=== PATIENT | male | born 1945 | race Two or more races ===

== ENCOUNTER 2016-10-17 13:40 | Observation (INO) | payer MEDICARE, OTHER ==
[~2016-10-17] VITALS: Ht 172.7 cm; Wt 83.0 kg
[~2016-10-17 13:40] MED LIST: ALPR0.25 PO; BUDE10.2 IH; CHOL20003 PO; COLE1TAB PO; DIPH1TAB5 PO; ESCI10TA PO; ESCI5TAB24 PO; FLUT9.9S NS; GABA-585 PO; HYDR30CR TP; HYDR4TAB PO; IPRA3AMP NEB; LEVO500T38 PO; LIDO700A4 TD; Loperamide Hcl PO; MAGN400T22 PO; METH5TAB2 PO; METO50TA2 PO; MONT10TA6 PO; MULT-246 PO; Metoprolol Tartrate PO; OXYC5TAB PO; PRED-220 PO; PROC5TAB14 PO; RIFA550T PO; ROPI0.25 PO; ROPI0.5T PO; TACR0.5C4 PO; TACR1CAP4 PO; TAMS0.4C97 PO; TRAZ50TA15 PO; Tizanidine Hcl PO; Trazodone Hcl PO
[2016-10-17] MEDS ORDERED: HYDR2TAB PO (13:47)
[2016-10-17] MEDS ORDERED: LORA0.5T PO (13:49)
[2016-10-17] MEDS ORDERED: ASCO10002 PO (13:50)
[2016-10-17] MEDS ORDERED: LEVO25TA4 PO (13:51)
--- NOTE | 2016-10-17 14:09 | PHYS DOC ---
Past Medical History Past Medical History: Anxiety, Cancer, GERD, High Cholesterol, Hypotension, Hepatitis, Other Additional Past Medical Histor: chronic back pain; colon ca-CHEMO & RADIATION; former hep C,PANIC ATTACKS Past Surgical History: Other Additional Past Surgical Histo: liver transplant,PORT-A-CATH Alcohol Use: None Drug Use: None Adult General Chief Complaint Chief Complaint: MULTIPLE COMPLAINTS HPI HPI Patient is a 71 year old male who presents with jitteriness and abusing pain meds. He states he's on morphine and Dilaudid and over the last 3 days he's been crushing up his Dilaudid and injecting it himself. 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 He denies any fevers chills nausea or vomiting. He thinks he needs more pain meds and is concerned about his practice of injecting himself. He presents with his 2 daughters and they're interested in him going to rehabilitation. Review of Systems Review of Systems Constitutional: Denies fever or chills [] Eyes: Denies change in visual acuity, redness, or eye pain [] HENT: Denies nasal congestion or sore throat [] Respiratory: Denies cough or shortness of breath [] Cardiovascular: No additional information not addressed in HPI [] GI: Denies abdominal pain, nausea, vomiting, bloody stools or diarrhea [] : Denies dysuria or hematuria [] Musculoskeletal: Denies back pain or joint pain [] Integument: Denies rash or skin lesions [] Neurologic: Denies headache, focal weakness or sensory changes [] Endocrine: Denies polyuria or polydipsia [] Allergies Allergies Allergies Coded Allergies Type Severity Reaction Last Updated Verified Iodinated Contrast Media - IV Dye Allergy Intermediate 04/20/16 Yes testosterone Allergy Intermediate 04/20/16 Yes I S O L A T I O N *CONTACT* Allergy Unknown 04/20/16 Yes Physical Exam Physical Exam Constitutional: Well developed, well nourished, no acute distress, non-toxic appearance. [] HENT: Normocephalic, atraumatic, bilateral external ears normal, oropharynx moist, no oral exudates, nose normal. [] Eyes: PERRLA, EOMI, conjunctiva normal, no discharge. [] Neck: Normal range of motion, no tenderness, supple, no stridor. [] Cardiovascular:Heart rate regular rhythm, no murmur [] Lungs & Thorax: Bilateral breath sounds clear to auscultation [] Abdomen: Bowel sounds normal, soft, no tenderness, no masses, no pulsatile masses. [] Skin: Warm, dry, no erythema, no rash. Ecchymosis on bilateral arms were he has been injecting Back: No tenderness, no CVA tenderness. [] Extremities: No tenderness, no cyanosis, no clubbing, ROM intact, no edema. [] Neurologic: Alert and oriented X 3, normal motor function, normal sensory function, no focal deficits noted. [] Psychologic: Affect normal, judgement normal, mood normal. [] Current Patient Data Vital Signs Vital Signs Date Time Temp Pulse Resp B/P Pulse Ox O2 Delivery O2 Flow Rate FiO2 10/17/16 13:45 98.9 77 18 117/63 96 Room Air 98.9 EKG EKG [] Radiology/Procedures Radiology/Procedures [] Course & Med Decision Making Course & Med Decision Making Pertinent Labs and Imaging studies reviewed. (See chart for details) She comes in feeling jittery and been abusing his Dilaudid eye crushing them up injecting them. I ordered basic labs and 0.5 mg Ativan 1 the patient's being checked out to Dr. Silvana Cadena Disclaimer Surinder Disclaimer This electronic medical record was generated, in whole or in part, using a voice recognition dictation system. Departure Departure Referrals: ELENI NIEVES MD (PCP) ELISABETH CUMMINGS MD Oct 17, 2016 14:09
[2016-10-17 14:49] LABS: BASO % 0 % (0-3); EOS % 3 % (0-3); HEMATOCRIT 32.4 % (39.0-53.0); HEMOGLOBIN 10.9 g/dL (13.0-17.5); LYMPH # 0.9 x10^3/uL (1.0-4.8); LYMPH % 19 % (24-48); MEAN CORPUSCULAR HEMOGLOBIN 30 pg (25-35); MEAN CORPUSCULAR HGB CONC 34 g/dL (31-37); MEAN CORPUSCULAR VOLUME 89 fL (79-100); MONO % 10 % (0-9); NEUT % 68 % (31-73); PLATELET COUNT 105 x10^3/uL (140-400); RED BLOOD COUNT 3.65 x10^6/uL (4.30-5.70); RED CELL DISTRIBUTION WIDTH 13.4 % (11.5-14.5); WHITE BLOOD COUNT 4.5 x10^3/uL (4.0-11.0)
[2016-10-17] MEDS ORDERED: LORAZEPAM 2 MG/ML VIAL IV ONE ×2 (15:00→23:00)
[2016-10-17 15:05] LABS: CALCIUM 8.9 mg/dL (8.5-10.1); CREATININE 1.5 mg/dL (0.7-1.3); GFR 46.3; POTASSIUM 5.2 mmol/L (3.5-5.1)
[2016-10-17 15:12] LABS: ALBUMIN 3.1 g/dL (3.4-5.0); ALBUMIN/GLOBULIN RATIO 0.6 (1.0-1.7); TOTAL BILIRUBIN 0.6 mg/dL (0.2-1.0); TOTAL PROTEIN 8.3 g/dL (6.4-8.2)
[2016-10-17] MEDS ORDERED: IV NORMAL SALINE 1000ML BAG 1,000 ML IV ONE (16:15)
[2016-10-17 18:10] VITALS: BP 126/99
[2016-10-17] MEDS ORDERED: DIPHENOXYLATE/ATROPINE TABLET. PO PRN (19:30)
[2016-10-17] MEDS: METOPROLOL TART IMMED RELEASE 25 MG TABLET PO SCH (21:00)
[2016-10-17] MEDS: TACROLIMUS 1 MG CAPSULE PO SCH (21:15)
[2016-10-17] MEDS: METHADONE 5 MG TABLET. PO SCH (21:15)
[2016-10-17] MEDS: LEVOTHYROXINE 25 MCG TABLET. PO SCH (21:16)
[2016-10-17] MEDS: MONTELUKAST SODIUM 10 MG TABLET. PO SCH (21:16)
[2016-10-17] MEDS: COLESTIPOL HCL 1 GM TABLET PO SCH (21:16)
[2016-10-17] MEDS: GABAPENTIN 100 MG CAPSULE. PO SCH (21:16)
[2016-10-17 23:05] VITALS: BP 120/68
[2016-10-18 03:17] VITALS: BP 135/79
[2016-10-18 04:34] LABS: BASO % 0 % (0-3); EOS % 5 % (0-3); HEMATOCRIT 29.6 % (39.0-53.0); LYMPH # 0.8 x10^3/uL (1.0-4.8); LYMPH % 32 % (24-48); MEAN CORPUSCULAR HEMOGLOBIN 30 pg (25-35); MEAN CORPUSCULAR HGB CONC 34 g/dL (31-37); MEAN CORPUSCULAR VOLUME 89 fL (79-100); MONO % 12 % (0-9); NEUT % 51 % (31-73); PLATELET COUNT 89 x10^3/uL (140-400); RED BLOOD COUNT 3.33 x10^6/uL (4.30-5.70); RED CELL DISTRIBUTION WIDTH 13.6 % (11.5-14.5); WHITE BLOOD COUNT 2.6 x10^3/uL (4.0-11.0)
[2016-10-18 05:36] LABS: CALCIUM 8.7 mg/dL (8.5-10.1); CREATININE 1.3 mg/dL (0.7-1.3); GFR 54.6; POTASSIUM 4.6 mmol/L (3.5-5.1)
[2016-10-18 07:00] VITALS: BP 121/76
--- NOTE | 2016-10-18 08:05 | PDOC ---
GUY FLEMING APRN 10/18/16 0805: Provider Note Provider Note 10/17/16 presented to ED with c/o jitteriness and abusing pain medication. He had been crushing Dilaudid and injecting it for uncontrolled pain.There was no trauma and he feels the cold weather triggered his pain. He receives chronic pain management per [facility]. He would like to pursue detoxing off pain medications. was on diversion or he would have gone to ED. Impression abuse of chronic oral pain medications -IV injection Reports needle single use, sterile when initiated IV use h/o liver transplant on chronic immunosuppression continue medications hyperkalemia Admit K 5.2 10/18 4.6 Please see orders for further plan of care. ELENI NIEVES MD 10/18/16 1049: Provider Note Provider Note Patient could not go to ER as it was on diversion.He states that his pain management physician told him to take ambulance to the ER. Remains anxious.start Clonidine.continue Methadone,increase dose and stay off Dilaudid. F/u with physician on discharge.He wants to go in an addiction recovery program. c/o back pain. Cirrhosis of liver. Anxiety. Hepatitis C. Chronic pain syndrome. GUY FLEMING APRN Oct 18, 2016 08:05 ELENI NIEVES MD Oct 18, 2016 10:49
[2016-10-18] MEDS: TACROLIMUS 1 MG CAPSULE PO SCH ×2 (08:11→20:49)
[2016-10-18] MEDS: METHADONE 5 MG TABLET. PO SCH ×4 (08:12→22:51)
[2016-10-18] MEDS: COLESTIPOL HCL 1 GM TABLET PO SCH ×3 (08:12→20:48)
[2016-10-18] MEDS: METOPROLOL TART IMMED RELEASE 25 MG TABLET PO SCH ×2 (08:12→20:49)
[2016-10-18] MEDS: TAMSULOSIN 0.4 MG CAP.ER.24H. PO SCH (08:15)
[2016-10-18] MEDS ORDERED: TAMSULOSIN 0.4 MG CAP.ER.24H. PO SCH (09:00)
[2016-10-18] MEDS: LORAZEPAM 0.5 MG TABLET. PO PRN ×2 (09:59→23:36)
[2016-10-18 11:00] VITALS: BP 91/62
[2016-10-18] MEDS: CLONIDINE HCL 0.1 MG TABLET PO SCH ×3 (11:12→20:49)
--- NOTE | 2016-10-18 11:38 | PDOC1 ---
HISTORY AND PHYSICAL Chief Complaint Chief Complaint This 71 year old [place] male has been admitted with a chief complaint of abuse of chronic pain medications. He reports increase in chronic LBP 3 days ago with no injury or strain. He began to grind up Dilaudid and administer to himself intravenously once a day. He used a sterile needle that was only used by himself. He presented to the ED because he was concerned about abusing his chronic medications this way. He was noted to be trembling upon arrival to the ED. He has been admitted for IV pain medication. He expresses desire to wean from all pain medication. Unfortunately there are no in patient detox beds available. Problem List Problems Medical Problems: (1) Generalized pain Status: Acute (2) Substance abuse Status: Acute Past Medical History Cardiovascular: AFIB (off anticoagulation ), HTN, Other (PVD SVT) Pulmonary: COPD, Pneumonia (h/o ) CENTRAL NERVOUS SYSTEM: Other GI: No pertinent hx, Hemorrhoids (external ) Heme/Onc: Anemia NOS, Cancer, Other (chronic immunosuppression due to meds for liver transplant ) Hepatobiliary: Hep A/B/C, Other (recurrent Hep C genotype 1 with h/o 12 wk simeprevir/Sotosbuvir ) Psych: Anxiety, Depression, Panic Musculoskeletal: low back pain (chronic DDD, DJD with radiculitis LS), No pain , Other (Cervical/thoracic DDD DJD ) Renal/: Chronic renal insuff (CKD II ), Other (ED) Endocrine: Osteoporosis Past Surgical History Past Surgical History: Other (liver transplant 2002 prograf) Past Family History Family History: Heart Disease (Mother, Father ), Other Past Social History PSH single, family supportive, former smoker, ETOH remote, h/o IV heroin use Review of Symptoms Review of Symptoms A 14 point ROS was completed with the following noted as positive: per HPI, acute on chronic LBP, jerking movements LE, anxious Other systems reviewed and negative. Medications Medications reviewed and reconciled Allergy Allergies Coded Allergies Type Severity Reaction Last Updated Verified Iodinated Contrast Media - IV Dye Allergy Intermediate 04/20/16 Yes testosterone Allergy Intermediate 04/20/16 Yes I S O L A T I O N *CONTACT* Allergy Unknown 04/20/16 Yes Physical Exam Physical Exam General appearance - alert,well appearing, and in no distress Mental Status - alert, oriented to person, place, and time, affect appropriate to mood Head - normal Chest - clear to auscultation, no wheezes, rales or rhonchi Heart - S1 and S2 normal Abdomen - soft, nontender, nondistended, BS+ Neurological - no acute focal neurological deficit noted Musculoskeletal - no muscular tenderness noted, chronic repetitive movement bilateral LE Extremities - no pedal edema Skin - warm and dry VTE Prophylaxis Ordered VTE Prophylaxis Devices: Yes VTE Pharmacological Prophylaxi: No Assessment Labs Laboratory Tests Test 10/17/16 14:35 10/18/16 03:55 White Blood Count 4.5x10^3/uL (4.0-11.0) 2.6x10^3/uL (4.0-11.0) Red Blood Count 3.65x10^6/uL (4.30-5.70) 3.33x10^6/uL (4.30-5.70) Hemoglobin 10.9g/dL (13.0-17.5) 10.0g/dL (13.0-17.5) Hematocrit 32.4% (39.0-53.0) 29.6% (39.0-53.0) Mean Corpuscular Volume 89fL (79-100) 89fL (79-100) Mean Corpuscular Hemoglobin 30pg (25-35) 30pg (25-35) Mean Corpuscular Hemoglobin Concent 34g/dL (31-37) 34g/dL (31-37) Red Cell Distribution Width 13.4% (11.5-14.5) 13.6% (11.5-14.5) Platelet Count 105x10^3/uL (140-400) 89x10^3/uL (140-400) Neutrophils (%) (Auto) 68% (31-73) 51% (31-73) Lymphocytes (%) (Auto) 19% (24-48) 32% (24-48) Monocytes (%) (Auto) 10% (0-9) 12% (0-9) Eosinophils (%) (Auto) 3% (0-3) 5% (0-3) Basophils (%) (Auto) 0% (0-3) 0% (0-3) Neutrophils # (Auto) 3.1x10^3uL (1.8-7.7) 1.3x10^3uL (1.8-7.7) Lymphocytes # (Auto) 0.9x10^3/uL (1.0-4.8) 0.8x10^3/uL (1.0-4.8) Monocytes # (Auto) 0.5x10^3/uL (0.0-1.1) 0.3x10^3/uL (0.0-1.1) Eosinophils # (Auto) 0.1x10^3/uL (0.0-0.7) 0.1x10^3/uL (0.0-0.7) Basophils # (Auto) 0.0x10^3/uL (0.0-0.2) 0.0x10^3/uL (0.0-0.2) Sodium Level 138mmol/L (136-145) 141mmol/L (136-145) Potassium Level 5.2mmol/L (3.5-5.1) 4.6mmol/L (3.5-5.1) Chloride Level 101mmol/L (98-107) 105mmol/L (98-107) Carbon Dioxide Level 31mmol/L (21-32) 30mmol/L (21-32) Anion Gap 6 (6-14) 6 (6-14) Blood Urea Nitrogen 27mg/dL (8-26) 27mg/dL (8-26) Creatinine 1.5mg/dL (0.7-1.3) 1.3mg/dL (0.7-1.3) Estimated GFR (Cockcroft-Gault) 46.3 54.6 BUN/Creatinine Ratio 18 (6-20) Glucose Level 123mg/dL (70-99) 87mg/dL (70-99) Calcium Level 8.9mg/dL (8.5-10.1) 8.7mg/dL (8.5-10.1) Total Bilirubin 0.6mg/dL (0.2-1.0) Aspartate Amino Transf (AST/SGOT) 23U/L (15-37) Alanine Aminotransferase (ALT/SGPT) 28U/L (16-63) Alkaline Phosphatase 84U/L (46-116) Total Protein 8.3g/dL (6.4-8.2) Albumin 3.1g/dL (3.4-5.0) Albumin/Globulin Ratio 0.6 (1.0-1.7) Laboratory Tests Test 10/17/16 14:35 10/18/16 03:55 White Blood Count 4.5x10^3/uL (4.0-11.0) 2.6x10^3/uL (4.0-11.0) Red Blood Count 3.65x10^6/uL (4.30-5.70) 3.33x10^6/uL (4.30-5.70) Hemoglobin 10.9g/dL (13.0-17.5) 10.0g/dL (13.0-17.5) Hematocrit 32.4% (39.0-53.0) 29.6% (39.0-53.0) Mean Corpuscular Volume 89fL (79-100) 89fL (79-100) Mean Corpuscular Hemoglobin 30pg (25-35) 30pg (25-35) Mean Corpuscular Hemoglobin Concent 34g/dL (31-37) 34g/dL (31-37) Red Cell Distribution Width 13.4% (11.5-14.5) 13.6% (11.5-14.5) Platelet Count 105x10^3/uL (140-400) 89x10^3/uL (140-400) Neutrophils (%) (Auto) 68% (31-73) 51% (31-73) Lymphocytes (%) (Auto) 19% (24-48) 32% (24-48) Monocytes (%) (Auto) 10% (0-9) 12% (0-9) Eosinophils (%) (Auto) 3% (0-3) 5% (0-3) Basophils (%) (Auto) 0% (0-3) 0% (0-3) Neutrophils # (Auto) 3.1x10^3uL (1.8-7.7) 1.3x10^3uL (1.8-7.7) Lymphocytes # (Auto) 0.9x10^3/uL (1.0-4.8) 0.8x10^3/uL (1.0-4.8) Monocytes # (Auto) 0.5x10^3/uL (0.0-1.1) 0.3x10^3/uL (0.0-1.1) Eosinophils # (Auto) 0.1x10^3/uL (0.0-0.7) 0.1x10^3/uL (0.0-0.7) Basophils # (Auto) 0.0x10^3/uL (0.0-0.2) 0.0x10^3/uL (0.0-0.2) Sodium Level 138mmol/L (136-145) 141mmol/L (136-145) Potassium Level 5.2mmol/L (3.5-5.1) 4.6mmol/L (3.5-5.1) Chloride Level 101mmol/L (98-107) 105mmol/L (98-107) Carbon Dioxide Level 31mmol/L (21-32) 30mmol/L (21-32) Anion Gap 6 (6-14) 6 (6-14) Blood Urea Nitrogen 27mg/dL (8-26) 27mg/dL (8-26) Creatinine 1.5mg/dL (0.7-1.3) 1.3mg/dL (0.7-1.3) Estimated GFR (Cockcroft-Gault) 46.3 54.6 BUN/Creatinine Ratio 18 (6-20) Glucose Level 123mg/dL (70-99) 87mg/dL (70-99) Calcium Level 8.9mg/dL (8.5-10.1) 8.7mg/dL (8.5-10.1) Total Bilirubin 0.6mg/dL (0.2-1.0) Aspartate Amino Transf (AST/SGOT) 23U/L (15-37) Alanine Aminotransferase (ALT/SGPT) 28U/L (16-63) Alkaline Phosphatase 84U/L (46-116) Total Protein 8.3g/dL (6.4-8.2) Albumin 3.1g/dL (3.4-5.0) Albumin/Globulin Ratio 0.6 (1.0-1.7) Plan Plan 1. abuse of chronic pain medications with IV use oral Dilaudid 2. acute on chronic LBP LS 3. anxiety with panic attacks 4. HTN 5. pancytopenia 6. h/o rectal cancer with chronic radiation proctitis/diarrhea 7. 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 depression 9. chronic pain management LBP/cervical pain 10. OA generalized 11. COPD 12. h/o PVD 13. h/o SVT 14. AFib h/o no anticoagulation 15. CKD II PLAN: chronic pain medication abuse IV fentanyl continue oral Methadone 5mg bid Detox center when bed available anemia CD/thrombocytopenia Admit Hgb 10.9 10/18 10.0 Plt 105 898 CKD II Admit BUN 27 10/18 27 Cr 1.5 1.3 renal transplant continue prograf DVT/GI prophylaxis SCD/SORAYA PPI For more details regarding further plans, please refer to the orders. GUY FLEMING APRN Oct 18, 2016 11:38
[2016-10-18 15:34] VITALS: BP 124/65
[2016-10-18 15:35] LABS: BARBITURATES NEG (NEG); BENZODIAZEPINES NEG (NEG); CANNABINOIDS NEG (NEG); COCAINE NEG (NEG); METHADONE POS (NEG); OPIATES POS (NEG); PHENCYCLIDINE NEG (NEG)
[2016-10-18 15:42] LABS: ETHANOL, URINE NEG (NEG)
[2016-10-18 19:00] VITALS: BP 111/63
[2016-10-18] MEDS: MONTELUKAST SODIUM 10 MG TABLET. PO SCH (20:48)
[2016-10-18] MEDS: LEVOTHYROXINE 25 MCG TABLET. PO SCH (20:48)
[2016-10-18] MEDS: GABAPENTIN 100 MG CAPSULE. PO SCH (21:00)
[2016-10-18 23:00] VITALS: BP 128/67
[2016-10-19 05:20] LABS: BASO % 0 % (0-3); EOS % 5 % (0-3); HEMATOCRIT 29.4 % (39.0-53.0); HEMOGLOBIN 9.8 g/dL (13.0-17.5); LYMPH # 0.8 x10^3/uL (1.0-4.8); LYMPH % 36 % (24-48); MEAN CORPUSCULAR HEMOGLOBIN 30 pg (25-35); MEAN CORPUSCULAR HGB CONC 33 g/dL (31-37); MEAN CORPUSCULAR VOLUME 89 fL (79-100); MONO % 15 % (0-9); NEUT % 44 % (31-73); PLATELET COUNT 90 x10^3/uL (140-400); RED BLOOD COUNT 3.32 x10^6/uL (4.30-5.70); RED CELL DISTRIBUTION WIDTH 13.5 % (11.5-14.5); WHITE BLOOD COUNT 2.2 x10^3/uL (4.0-11.0)
[2016-10-19 05:41] LABS: CALCIUM 8.9 mg/dL (8.5-10.1); CREATININE 1.3 mg/dL (0.7-1.3); GFR 54.6; MAGNESIUM 1.8 mg/dL (1.8-2.4); POTASSIUM 4.4 mmol/L (3.5-5.1)
[2016-10-19] MEDS: CLONIDINE HCL 0.1 MG TABLET PO SCH (06:00)
[2016-10-19 07:00] VITALS: BP 112/69
[2016-10-19] MEDS: COLESTIPOL HCL 1 GM TABLET PO SCH (08:57)
[2016-10-19] MEDS: TACROLIMUS 1 MG CAPSULE PO SCH (08:57)
[2016-10-19] MEDS: METOPROLOL TART IMMED RELEASE 25 MG TABLET PO SCH (08:57)
[2016-10-19] MEDS: TAMSULOSIN 0.4 MG CAP.ER.24H. PO SCH (09:00)
[2016-10-19] MEDS ORDERED: METHADONE 5 MG TABLET. PO SCH ×2 (09:00)
[2016-10-19 11:00] VITALS: BP 101/59
--- NOTE | 2016-10-19 13:32 | PDOC ---
PROGRESS NOTES Subjective Subjective feels better ,pain control better want to go home Objective Objective Vital Signs Date Time Temp Pulse Resp B/P Pulse Ox O2 Delivery O2 Flow Rate FiO2 10/19/16 10:05 Room Air 10/19/16 08:57 68 112/69 10/19/16 07:00 97.7 18 99 97.7 Intake and Output 10/19/16 07:00 Intake Total 1625 ml Balance 1625 ml Intake Oral 1625 ml # Voids 10 Physical Exam Abdomen: Normal bowel sounds, Soft Heart: Regular rate, Normal S1 Extremities: No clubbing General: Alert HEENT: Atraumatic Lungs: Clear to auscultation MUSCULOSKELETAL: No deformity Neck: Supple Neuro: Normal speech Psych/Mental Status: Mental status NL Skin: No breakdown Diagnosis Problem List Problems Medical Problems: (1) Generalized pain Status: Acute (2) Substance abuse Status: Acute Assessment Assessment Problems Medical Problems: (1) Generalized pain Status: Acute (2) Substance abuse Status: Acute IMP: 1. abuse of chronic pain medications with IV use oral Dilaudid 2. acute on chronic LBP LS 3. anxiety with panic attacks 4. HTN 5. pancytopenia 6. h/o rectal cancer with chronic radiation proctitis/diarrhea 7. 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 depression 9. chronic pain management LBP/cervical pain 10. OA generalized 11. COPD 12. h/o PVD 13. h/o SVT 14. AFib h/o no anticoagulation 15. CKD II PLAN:d/c home today. pain control better. chronic pain medication abuse continue oral Methadone 5mg bid DVT/GI prophylaxis SCD/SORAYA PPI Problems: Plan Plan of Care Problems Medical Problems: (1) Generalized pain Status: Acute (2) Substance abuse Status: Acute Comment Review of Relevant I have reviewed the following items minda (where applicable) has been applied. Labs Laboratory Tests Test 10/18/16 15:05 10/19/16 04:10 Urine Opiates Screen Pos (NEG) Urine Methadone Screen Pos (NEG) Urine Barbiturates Neg (NEG) Urine Phencyclidine Screen Neg (NEG) Urine Amphetamine/Methamphetamine Neg (NEG) Urine Benzodiazepines Screen Neg (NEG) Urine Cocaine Screen Neg (NEG) Urine Cannabinoids Screen Neg (NEG) Urine Ethyl Alcohol Neg (NEG) White Blood Count 2.2x10^3/uL (4.0-11.0) Red Blood Count 3.32x10^6/uL (4.30-5.70) Hemoglobin 9.8g/dL (13.0-17.5) Hematocrit 29.4% (39.0-53.0) Mean Corpuscular Volume 89fL (79-100) Mean Corpuscular Hemoglobin 30pg (25-35) Mean Corpuscular Hemoglobin Concent 33g/dL (31-37) Red Cell Distribution Width 13.5% (11.5-14.5) Platelet Count 90x10^3/uL (140-400) Neutrophils (%) (Auto) 44% (31-73) Lymphocytes (%) (Auto) 36% (24-48) Monocytes (%) (Auto) 15% (0-9) Eosinophils (%) (Auto) 5% (0-3) Basophils (%) (Auto) 0% (0-3) Neutrophils # (Auto) 1.0x10^3uL (1.8-7.7) Lymphocytes # (Auto) 0.8x10^3/uL (1.0-4.8) Monocytes # (Auto) 0.3x10^3/uL (0.0-1.1) Eosinophils # (Auto) 0.1x10^3/uL (0.0-0.7) Basophils # (Auto) 0.0x10^3/uL (0.0-0.2) Sodium Level 143mmol/L (136-145) Potassium Level 4.4mmol/L (3.5-5.1) Chloride Level 106mmol/L (98-107) Carbon Dioxide Level 34mmol/L (21-32) Anion Gap 3 (6-14) Blood Urea Nitrogen 25mg/dL (8-26) Creatinine 1.3mg/dL (0.7-1.3) Estimated GFR (Cockcroft-Gault) 54.6 Glucose Level 113mg/dL (70-99) Calcium Level 8.9mg/dL (8.5-10.1) Magnesium Level 1.8mg/dL (1.8-2.4) Medications Current Medications Methadone HCl (Dolophine) 5 mg BID PO ; Start 10/19/16 at 09:00; Status Cancel Methadone HCl (Dolophine) 10 mg BID PO Last administered on 10/18/16 22:51; Start 10/18/16 at 21:00; Stop 10/19/16 at 08:49; Status DC Methadone HCl (Dolophine) 10 mg BID PO Last administered on 10/19/16 08:55; Start 10/19/16 at 09:00 Vitals/I & O Vital Sign - Last 24 Hours 10/18/16 10/18/16 10/18/16 10/18/16 15:08 15:34 19:00 20:49 Temp 96.6 97.7 96.6 97.7 Pulse 71 71 70 70 Resp 16 18 B/P 124/65 124/65 111/63 111/63 Pulse Ox 98 99 O2 Delivery Room Air Room Air 10/18/16 10/18/16 10/19/16 10/19/16 20:49 23:00 06:00 07:00 Temp 97.7 97.7 97.7 97.7 Pulse 70 60 60 68 Resp 18 18 B/P 111/63 128/67 128/67 112/69 Pulse Ox 97 99 O2 Delivery Room Air Room Air 10/19/16 10/19/16 10/19/16 10/19/16 08:00 08:55 08:57 10:05 Pulse 68 B/P 112/69 O2 Delivery Room Air Room Air Room Air Intake and Output 10/18/16 10/18/16 10/19/16 15:00 23:00 07:00 Intake Total 645 ml 980 ml Balance 645 ml 980 ml RACHELE TAVERAS MD Oct 19, 2016 13:32
--- NOTE | 2016-10-23 09:56 | PDOC3 ---
IM DISCHARGE SUMMARY Date of Admission Date of Admission Date of Admission: Oct 17, 2016 at 17:00 Date of Discharge Date of Discharge 10/19/16 Primary Diagnosis Primary Diagnosis 1. abuse of chronic pain medications with IV use oral Dilaudid 2. acute on chronic LBP LS 3. anxiety with panic attacks 4. HTN 5. pancytopenia 6. h/o rectal cancer with chronic radiation proctitis/diarrhea 7. 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 depression 9. chronic pain management LBP/cervical pain 10. OA generalized 11. COPD 12. h/o PVD 13. h/o SVT 14. AFib h/o no anticoagulation 15. CKD II no ARF OMAR Problems: Consults Consults None Procedures Procedures None Labs Labs See EHR Brief hospital course Brief hospital course This 71 year old [place] male who presented with acute on chronic LBP and abuse of chronic pain medications was admitted. The following is a summary of his treatment: chronic pain medication abuse IV fentanyl stop at discharge continue oral Methadone 5mg bid Detox center when bed available anemia CD/thrombocytopenia Admit Hgb 10.9 10/18 9.8 Plt 105 90 CKD II Admit BUN 27 10/18 25 Cr 1.5 1.3 liver transplant continue prograf DVT/GI prophylaxis SCD/SORAYA PPI For more details regarding the past history, family history, social history, surgical history and other details, please refer to History and Physical. He was treated with IV Fentanyl during admission and will be discharged on chronic pain medications. He is to f/u with his chronic pain management MD. Continue to seek in patient treatment for narcotic abuse. Please see discharge orders. Medications Medications reviewed and reconciled for discharge. Allergy Allergies Coded Allergies Type Severity Reaction Last Updated Verified Iodinated Contrast Media - IV Dye Allergy Intermediate 04/20/16 Yes testosterone Allergy Intermediate 04/20/16 Yes I S O L A T I O N *CONTACT* Allergy Unknown 04/20/16 Yes Follow up in 5 days. DISPOSITION: Home Comments Discharge Management - 35 minutes. For other details please refer to discharge instructions GUY FLEMING APRN Oct 23, 2016 09:56
== END 2016-10-19 14:50 | disposition home or self-care (01) ==
LOC: ER 13:40 → 4 NORTH 17:00
PROVIDERS: ADMIT Internal Medicine; ATTEND Internal Medicine
DX: M54.5 Low back pain (principal); R52 Pain, unspecified; G89.4 Chronic pain syndrome; F11.10 Opioid abuse, uncomplicated; F41.9 Anxiety disorder, unspecified; E87.5 Hyperkalemia; F41.0 Panic disorder [episodic paroxysmal anxiety]; K21.9 Gastro-esophageal reflux disease without esophagitis; K74.60 Unspecified cirrhosis of liver; B19.20 Unspecified viral hepatitis C without hepatic coma; E78.00 Pure hypercholesterolemia, unspecified; D61.818 Other pancytopenia; F32.9 Major depressive disorder, single episode, unspecified; M15.9 Polyosteoarthritis, unspecified; J44.9 Chronic obstructive pulmonary disease, unspecified; I73.9 Peripheral vascular disease, unspecified; I48.91 Unspecified atrial fibrillation; I12.9 Hypertensive chronic kidney disease with stage 1 through stage 4 chronic kidney disease, or unspecified chronic kidney disease; N18.2 Chronic kidney disease, stage 2 (mild); M81.0 Age-related osteoporosis without current pathological fracture; Z87.891 Personal history of nicotine dependence; Z94.4 Liver transplant status; Z85.048 Personal history of other malignant neoplasm of rectum, rectosigmoid junction, and anus; Z82.49 Family history of ischemic heart disease and other diseases of the circulatory system; Z79.899 Other long term (current) drug therapy
CPT/HCPCS: 36415; 80048; 80053; 83735; 85027; 96361; 96374; 96376; 99285; G0378; G0481; J2060; J7030; J7507; G0379

== ENCOUNTER 2016-10-29 21:56 | Emergency (ER) | payer MEDICARE, OTHER ==
[~2016-10-29] VITALS: Ht 177.8 cm; Wt 83.0 kg
[2016-10-29 21:56] VITALS: BP 137/82
[~2016-10-29 21:56] MED LIST changes: +ASCO10002 PO; +HYDR2TAB PO; +LEVO25TA4 PO; +LORA0.5T PO
[2016-10-29] MEDS ORDERED: METHADONE 5 MG TABLET. PO ONE (23:00)
--- NOTE | 2016-10-30 01:23 | ED.ADGEN ---
Past Medical History Past Medical History: Anxiety, Cancer, GERD, High Cholesterol, Hypotension, Hepatitis, Other Additional Past Medical Histor: chronic back pain; colon ca-CHEMO & RADIATION; former hep C,PANIC ATTACKS Past Surgical History: Other Additional Past Surgical Histo: liver transplant,PORT-A-CATH Alcohol Use: None Drug Use: None Adult General Chief Complaint Chief Complaint: WITHDRAWL HPI HPI Patient is a 71 year old with a history of colon cancer, liver transplant, chronic back pain for which he follows with pain management, who presents to the emergency department with complaints of "withdrawal symptoms". Patient states that he is currently taking methadone, but that he is still feeling "shaky and jittery". Denies any vomiting, denies any chest pain or shortness breath, any weakness emesis or tingling, any injuries or new complaints. He states his pain is consistent with his typical chronic back pain. States he is following Dr. Lennon at . Review of Systems Review of Systems Constitutional: Denies fever or chills. [] Eyes: Denies change in visual acuity. [] HENT: Denies nasal congestion or sore throat. [] Respiratory: Denies cough or shortness of breath. [] Cardiovascular: Denies chest pain or edema. [] GI: Denies abdominal pain, nausea, vomiting, bloody stools or diarrhea. [] : Denies dysuria. [] Musculoskeletal: Denies joint pain. Chronic back pain. Integument: Denies rash. [] Neurologic: Denies headache, focal weakness or sensory changes. [] Endocrine: Denies polyuria or polydipsia. [] Lymphatic: Denies swollen glands. [] Psychiatric: Denies depression or anxiety. [] Current Medications Current Medications Current Medications Medications (Trade) Dose Ordered Sig/Sarahy Start Time Stop Time Status Last Admin Dose Admin Methadone HCl (Dolophine) 2.5 mg 1X ONCE 10/29/16 23:00 10/29/16 23:01 DC 10/29/16 22:56 2.5 MG Allergies Allergies Allergies Coded Allergies Type Severity Reaction Last Updated Verified Iodinated Contrast Media - IV Dye Allergy Intermediate 04/20/16 Yes testosterone Allergy Intermediate 04/20/16 Yes I S O L A T I O N *CONTACT* Allergy Unknown 04/20/16 Yes Physical Exam Physical Exam Constitutional: Well developed, well nourished, no acute distress, non-toxic appearance. [] HENT: Normocephalic, atraumatic, bilateral external ears normal, oropharynx moist, no oral exudates, nose normal. [] Eyes: PERRLA, EOMI, conjunctiva normal, no discharge. [] Neck: Normal range of motion, no tenderness, supple, no stridor. [] Cardiovascular:Heart rate regular rhythm, no murmur, S1, S2, rubs or gallops. [] Lungs & Thorax: Bilateral breath sounds clear to auscultation, no wheezing, rhonchi, rales. No chest tenderness or crepitus. [] Abdomen: Bowel sounds normal, soft, no tenderness, no rebound, rigidity, no guarding, no masses, no pulsatile masses. [] Skin: Warm, dry, no erythema, no rash. [] Back: Patient with tenderness palpation in the lumbar region, no step-offs or deformities, no external signs of trauma or other abnormalities. No CVA tenderness. [] Extremities: No tenderness, no cyanosis, no clubbing, ROM intact, no edema. [] Neurologic: Alert and oriented X 3, normal motor function, normal sensory function, no focal deficits noted. [] Psychologic: Affect normal, judgement normal, mood normal. [] Current Patient Data Vital Signs Vital Signs Date Time Temp Pulse Resp B/P Pulse Ox O2 Delivery O2 Flow Rate FiO2 10/29/16 22:56 Room Air 10/29/16 21:56 98.4 95 16 137/82 95 98.4 EKG EKG ECG: Rhythm strip: Sinus rhythm, heart rate 90 bpm, no ectopy, as interpreted by me. [] Radiology/Procedures Radiology/Procedures Not indicated. [] Course & Med Decision Making Course & Med Decision Making Pertinent Labs and Imaging studies reviewed. (See chart for details) Patient complaining of "withdrawal symptoms". States that he's been using a methadone taper as prescribed by Dr. Lennon at , a psychiatrist who specializes in pain management. I discussed with the patient that he is likely involvement pain management contract, therefore I cannot give him any additional medications aside from what is recommended I the painter plate, and the recorded plan. I did speak with Dr. Mcmillan, resident on-call for the psychiatry service at , who was able to review the patient's records 3. Per records, patient had an placed on a methadone taper, 5 mg twice daily for 5 days beginning 10/24, then transitioning to a half tab twice daily for 5 days, presenting to a half tablet once daily for 5 days. Patient currently is in the point to be transitioning to the half tablets twice daily. At this time she states that she will put a note in the chart so that the pain management office will contact the patient in the morning. Discussed that I will give the patient a second dose of 2.5 mg methadone in the ED, as his last dose was much earlier this afternoon per his report, patient is requesting injected pain medication. This would be counter with the plan that was discussed with him at his pain management doctor's office, and to which she agreed. Dr. Mcmillan is agreeable with this plan, patient was given the methadone in the ED without issue. Aside from his typical chronic back pain symptoms, and "jitteriness", he is not experiencing any other significant symptoms at this time. He states he does have his methadone at home and can take as directed. He is agreeable with the plan to follow-up with pain management the morning, return to the ED for any concerning or new symptoms as discussed. Discharged home in stable condition, family arrived to take him home. Dragon Disclaimer Dragon Disclaimer This electronic medical record was generated, in whole or in part, using a voice recognition dictation system. Departure Impression: Primary Impression: Chronic pain Disposition: 01 HOME, SELF-CARE Condition: IMPROVED Problem Qualifiers Primary Impression: Chronic pain Chronic pain type: chronic pain syndrome Qualified Code: G89.4 - Chronic pain syndrome HENOK BRITO DO Oct 30, 2016 01:23
== END 2016-10-29 23:26 | disposition home or self-care (01) ==
LOC: ER 21:56
DX: G89.29 Other chronic pain (principal); M54.9 Dorsalgia, unspecified; F41.9 Anxiety disorder, unspecified; K21.9 Gastro-esophageal reflux disease without esophagitis; E78.00 Pure hypercholesterolemia, unspecified; Z86.19 Personal history of other infectious and parasitic diseases; Z94.4 Liver transplant status; Z88.8 Allergy status to other drugs, medicaments and biological substances; Z91.041 Radiographic dye allergy status
CPT/HCPCS: 99283

== ENCOUNTER 2016-12-11 16:37 | Emergency (ER) | payer MEDICARE, OTHER ==
[~2016-12-11] VITALS: Ht 172.7 cm; Wt 87.5 kg
[2016-12-11] MEDS ORDERED: CYCLOBENZAPRINE 10 MG TABLET. PO ONE (17:45)
[2016-12-11 18:10] LABS: CALCIUM 9.6 mg/dL (8.5-10.1); CREATININE 1.2 mg/dL (0.7-1.3); GFR 59.9; POTASSIUM 4.3 mmol/L (3.5-5.1)
[2016-12-11 18:17] LABS: ALBUMIN 3.2 g/dL (3.4-5.0); DIRECT BILIRUBIN 0.1 mg/dL (0.0-0.2); MAGNESIUM 1.7 mg/dL (1.8-2.4); TOTAL BILIRUBIN 0.5 mg/dL (0.2-1.0); TOTAL PROTEIN 8.5 g/dL (6.4-8.2)
--- NOTE | 2016-12-11 18:20 | PHYS DOC ---
Past Medical History Past Medical History: Anxiety, Cancer, GERD, High Cholesterol, Hypotension, Hepatitis, Other Additional Past Medical Histor: chronic back pain; colon ca-CHEMO & RADIATION; former hep C,PANIC ATTACKS Past Surgical History: Other Additional Past Surgical Histo: liver transplant,PORT-A-CATH -removal Alcohol Use: None Drug Use: None Adult General Chief Complaint Chief Complaint: SHORTNESS OF BREATH HPI HPI Patient is a 71 year old male who presents with complaint of left-sided chest pain and shortness of breath. Patient states that his symptoms started 2 days ago and have been progressively worsening. Patient states he had a similar episode approximately one year ago and was found to have pneumonia at that time. Patient denies cough or fever. Patient states that the pain worsens if he does cough but denies any worsening pain with deep inspiration. Patient has history of chronic pain and states that he is having pain in his back currently. The patient after chart review was noted to be under pain management at [facility]. The patient had been put on a methadone taper. Patient states that he is currently not taking methadone anymore as he did not want to be on this medication anymore. Patient also has history of liver transplant states that he cannot take acetaminophen and cannot take ibuprofen. The patient is requesting medication for pain. Patient stated that he was given Flexeril while he was being tapered off of methadone. Patient rates pain currently is 10 out of 10. Review of Systems Review of Systems Constitutional: Denies fever or chills [] Eyes: Denies change in visual acuity, redness, or eye pain [] HENT: Denies nasal congestion or sore throat [] Respiratory: Shortness of breath [] Cardiovascular: Chest pain, denies edema [] GI: Denies abdominal pain, nausea, vomiting, bloody stools or diarrhea [] : Denies dysuria or hematuria [] Musculoskeletal: Chronic back pain [] Integument: Denies rash or skin lesions [] Neurologic: Denies headache, focal weakness or sensory changes [] Current Medications Current Medications Current Medications Medications (Trade) Dose Ordered Sig/Sarahy Start Time Stop Time Status Last Admin Dose Admin Cyclobenzaprine HCl (Flexeril) 10 mg 1X ONCE 12/11/16 17:45 12/11/16 17:46 DC 12/11/16 17:54 10 MG Allergies Allergies Allergies Coded Allergies Type Severity Reaction Last Updated Verified Iodinated Contrast Media - Oral and Allergy Intermediate 04/20/16 Yes testosterone Allergy Intermediate 04/20/16 Yes I S O L A T I O N *CONTACT* Allergy Unknown 04/20/16 Yes Physical Exam Physical Exam Constitutional: Alert, afebrile, appears in mild to moderate discomfort. [] HENT: Normocephalic, atraumatic, bilateral external ears normal, oropharynx moist, no oral exudates, nose normal. [] Eyes: PERRLA, EOMI, conjunctiva normal, no discharge. [] Neck: Normal range of motion, no tenderness, supple, no stridor. [] Cardiovascular:Heart rate regular rhythm, no murmur [] Lungs & Thorax: Bilateral breath sounds clear to auscultation [] Abdomen: Bowel sounds normal, soft, no tenderness, no masses, no pulsatile masses. [] Skin: Warm, dry, no erythema, no rash. [] Back: No tenderness, no CVA tenderness. [] Extremities: No tenderness, no cyanosis, no clubbing, ROM intact, no edema. [] Neurologic: Alert and oriented X 3, normal motor function, normal sensory function, no focal deficits noted. [] Current Patient Data Vital Signs Vital Signs Date Time Temp Pulse Resp B/P Pulse Ox O2 Delivery O2 Flow Rate FiO2 12/11/16 19:26 86 20 158/78 95 Room Air 12/11/16 16:53 98.1 98.1 Lab Values Laboratory Tests Test 12/11/16 17:30 12/11/16 18:45 Sodium Level 138mmol/L (136-145) Potassium Level 4.3mmol/L (3.5-5.1) Chloride Level 100mmol/L (98-107) Carbon Dioxide Level 33mmol/L (21-32) H Anion Gap 5 (6-14) L Blood Urea Nitrogen 25mg/dL (8-26) Creatinine 1.2mg/dL (0.7-1.3) Estimated GFR (Cockcroft-Gault) 59.9 Glucose Level 172mg/dL (70-99) H Calcium Level 9.6mg/dL (8.5-10.1) Magnesium Level 1.7mg/dL (1.8-2.4) L Total Bilirubin 0.5mg/dL (0.2-1.0) Direct Bilirubin 0.1mg/dL (0.0-0.2) Aspartate Amino Transferase (AST) 26U/L (15-37) Alanine Aminotransferase (ALT) 43U/L (16-63) Alkaline Phosphatase 108U/L (46-116) Creatine Kinase 40U/L (39-308) Creatine Kinase MB (Mass) < 0.5ng/mL (0.0-3.6) Creatine Kinase MB Relative Index % (0-4) Troponin I Quantitative < 0.017ng/mL (0.000-0.055) LA-Lkv-N-Type Natriuretic Peptide 424pg/mL (0-124) H Total Protein 8.5g/dL (6.4-8.2) H Albumin 3.2g/dL (3.4-5.0) L Lipase 225U/L (73-393) White Blood Count 5.0x10^3/uL (4.0-11.0) Red Blood Count 4.13x10^6/uL (4.30-5.70) L Hemoglobin 12.4g/dL (13.0-17.5) L Hematocrit 36.8% (39.0-53.0) L Mean Corpuscular Volume 89fL (79-100) Mean Corpuscular Hemoglobin 30pg (25-35) Mean Corpuscular Hemoglobin Concent 34g/dL (31-37) Red Cell Distribution Width 14.1% (11.5-14.5) Platelet Count 116x10^3/uL (140-400) L Neutrophils (%) (Auto) 56% (31-73) Lymphocytes (%) (Auto) 27% (24-48) Monocytes (%) (Auto) 12% (0-9) H Eosinophils (%) (Auto) 4% (0-3) H Basophils (%) (Auto) 1% (0-3) Neutrophils # (Auto) 2.8x10^3uL (1.8-7.7) Lymphocytes # (Auto) 1.4x10^3/uL (1.0-4.8) Monocytes # (Auto) 0.6x10^3/uL (0.0-1.1) Eosinophils # (Auto) 0.2x10^3/uL (0.0-0.7) Basophils # (Auto) 0.0x10^3/uL (0.0-0.2) Laboratory Tests 12/11/16 18:45 Laboratory Tests 12/11/16 17:30 EKG EKG Interpreted by me: Heart rate 83, sinus rhythm, left anterior fascicular block, no acute ST/T-wave abnormalities present Radiology/Procedures Radiology/Procedures One view AP chest x-ray interpreted by me: Chronically elevated left hemidiaphragm, no pulmonary infiltrates or effusions [] Course & Med Decision Making Course & Med Decision Making Pertinent Labs and Imaging studies reviewed. (See chart for details) The patient's lab work was unremarkable and patient's chest x-ray does not show any acute findings. I spoke with the patient's primary physician, Dr. Nieves, who confirmed that the patient has history of drug seeking behavior and did not recommend treating the patient with narcotic medications for pain. As there is no acute disorder but medical etiology for the patient's symptoms at this time, the patient is appropriate for outpatient follow-up. Dr. Nieves asked that the patient follow-up in his clinic within the next 3-5 days. I also strongly urged the patient to return to the emergency department for any worsening symptoms. Patient voiced understanding and in agreement with treatment plan. Dragon Disclaimer Dragon Disclaimer This electronic medical record was generated, in whole or in part, using a voice recognition dictation system. Departure Departure Impression: Primary Impression: Chest pain Disposition: 01 HOME, SELF-CARE Condition: STABLE Referrals: ELENI NIEVES MD (PCP) Patient Instructions: Chest Wall Pain Additional Instructions: Follow-up with Dr. Nieves in 2 days. Return to the emergency department for any worsening symptoms. Problem Qualifiers Primary Impression: Chest pain Chest pain type: intercostal pain Qualified Code: R07.82 - Intercostal pain MARY CANTRELL MD Dec 11, 2016 18:20
[2016-12-11 18:26] LABS: CKMB MASS < 0.5 ng/mL (0.0-3.6); CREATINE KINASE 40 U/L (39-308)
[2016-12-11 18:57] LABS: BASO % 1 % (0-3); EOS % 4 % (0-3); HEMATOCRIT 36.8 % (39.0-53.0); HEMOGLOBIN 12.4 g/dL (13.0-17.5); LYMPH # 1.4 x10^3/uL (1.0-4.8); LYMPH % 27 % (24-48); MEAN CORPUSCULAR HEMOGLOBIN 30 pg (25-35); MEAN CORPUSCULAR HGB CONC 34 g/dL (31-37); MEAN CORPUSCULAR VOLUME 89 fL (79-100); MONO % 12 % (0-9); NEUT % 56 % (31-73); PLATELET COUNT 116 x10^3/uL (140-400); RED BLOOD COUNT 4.13 x10^6/uL (4.30-5.70); RED CELL DISTRIBUTION WIDTH 14.1 % (11.5-14.5)
[2016-12-11 19:26] VITALS: BP 158/78
--- NOTE | 2016-12-12 06:33 | EKG ---
[facility] [address] [place] [address] Test Date: 2016-12-11 Test Time: 17:18:29 Pat Name: MARCIO MANRIQUE Department: Room: Gender: M Pricing Specialist: : [id number] Requested By: MARY CANTRELL Order Number: [id number] Reading MD: Juana Martínez Measurements Intervals [place] Rate: 83 P: -46 VT: 116 QRS: -98 QRSD: 106 T: 10 QT: 344 QTc: 405 Interpretive Statements SINUS RHYTHM LEFT ANTERIOR FASCICULAR BLOCK INCOMPLETE RIGHT BUNDLE BRANCH BLOCK ABNORMAL ECG RI6.01 Compared to ECG 04/20/2016 21:29:54 Incomplete right bundle-branch block now present Left-axis deviation no longer present Electronically Signed On 12-15-2016 18:05:57 CDT by Juana Martínez
--- NOTE | 2016-12-12 07:39 | RAD ---
EXAM: Chest, single view. HISTORY: Chest pain. COMPARISON: 04/07/2016. FINDINGS: A frontal view of the chest is obtained. There is stable elevation of the left hemidiaphragm with underlying prominent air-filled bowel. There is suspected left basilar compressive atelectasis. There is stable mild enlargement of the cardiac silhouette, a component of which is due to portable technique. No effusion or pneumothorax is seen. There is no consolidated infiltrate. IMPRESSION: 1. No acute pulmonary finding. 2. Stable elevation of the left hemidiaphragm with suspected basilar compressive atelectasis.
== END 2016-12-11 19:35 | disposition home or self-care (01) ==
LOC: ER 16:37
DX: R07.82 Intercostal pain (principal); K21.9 Gastro-esophageal reflux disease without esophagitis; G89.29 Other chronic pain; M54.9 Dorsalgia, unspecified; E78.00 Pure hypercholesterolemia, unspecified; Z88.8 Allergy status to other drugs, medicaments and biological substances; Z91.041 Radiographic dye allergy status
CPT/HCPCS: 36415; 71010; 80048; 80076; 82553; 83690; 83735; 83880; 84484; 85027; 93005; 99285-25

== ENCOUNTER 2017-07-31 16:06 | Inpatient (IN) | payer MEDICARE, OTHER ==
[~2017-07-31] VITALS: Ht 172.7 cm; Wt 90.3 kg
[~2017-07-31 16:06] MED LIST changes: -CHOL20003 PO; +CHOL20009 PO; -ESCI10TA PO; -ESCI5TAB24 PO; +ESCITALOPRAM OX10 MG PO; +ESCITALOPRAM OXA5 MG PO; -HYDR30CR TP; +HYDR30CR70 TP; -LEVO500T38 PO; +LEVO500T59 PO; -METO50TA2 PO; +METO50TA6 PO; -OXYC5TAB PO; +OXYC5TAB95 PO; -RIFA550T PO; +RIFA550T4 PO; +TACR0.5C20 PO; -TACR0.5C4 PO
[2017-07-31] MEDS ORDERED: IV NORMAL SALINE 1000ML BAG 1,000 ML IV SCH ×2 (16:39→18:30)
[2017-07-31] MEDS ORDERED: VANCOMYCIN 1GM IVPB FOR OMNI 250 ML IV ONE (16:45)
[2017-07-31] MEDS ORDERED: PIPERACILLIN/TAZOBACTAM 4.5 GM in IV DEXTROSE 5% 100 ML IV ONE (16:45)
[2017-07-31] MEDS ORDERED: VANCOMYCIN 2 GM in IV DEXTROSE 5% 500 ML IV ONE (17:00)
[2017-07-31] MEDS ORDERED: PIPERACILLIN/TAZO IV Push 4.5 GM VIAL. IVP ONE (17:00)
[2017-07-31 17:19] LABS: BASO % 0 % (0-3); EOS % 1 % (0-3); HEMATOCRIT 37.2 % (39.0-53.0); HEMOGLOBIN 12.5 g/dL (13.0-17.5); LYMPH # 0.4 x10^3/uL (1.0-4.8); LYMPH % 8 % (24-48); MEAN CORPUSCULAR HEMOGLOBIN 30 pg (25-35); MEAN CORPUSCULAR HGB CONC 34 g/dL (31-37); MEAN CORPUSCULAR VOLUME 90 fL (79-100); MONO % 7 % (0-9); NEUT % 84 % (31-73); PLATELET COUNT 97 x10^3/uL (140-400); RED BLOOD COUNT 4.13 x10^6/uL (4.30-5.70); RED CELL DISTRIBUTION WIDTH 13.9 % (11.5-14.5); WHITE BLOOD COUNT 4.6 x10^3/uL (4.0-11.0)
[2017-07-31 17:20] LABS: BILIRUBIN,URINE NEGATIVE (NEG); GLUCOSE,URINE NEGATIVE (NEG); NITRITE,URINE NEGATIVE (NEG); PH,URINE 8.5; PROTEIN,URINE NEGATIVE (NEG-TRACE); UROBILINOGEN,URINE 0.2 mg/dL (0.2 mg/dL)
--- NOTE | 2017-07-31 17:27 | RAD ---
Portable chest, 07/31/2017: History: Shortness of breath, chest pain Comparison is made to a study from 12/11/2016. There is chronic elevation of the left hemidiaphragm. The heart appears to be at the upper limits of normal in size. There is calcific plaquing the aorta. The pulmonary vascularity is normal. No pulmonary are seen. There is no evidence of pleural fluid. IMPRESSION: 1. Chronic elevation of the left hemidiaphragm. 2. No acute cardiopulmonary abnormality is detected.
[2017-07-31 17:29] LABS: BACTERIA,URINE 0 /HPF (0-FEW); SQUAMOUS EPITHELIAL CELL,UR OCC /LPF; WBC,URINE OCC /HPF (0-4)
[2017-07-31] MEDS ORDERED: HYDROmorphone 2 MG/ML VIAL IV ONE (17:30)
[2017-07-31 17:35] LABS: CALCIUM 9.1 mg/dL (8.5-10.1); CREATININE 1.3 mg/dL (0.7-1.3); GFR 54.4; POTASSIUM 3.9 mmol/L (3.5-5.1)
[2017-07-31 17:39] LABS: ALBUMIN 3.3 g/dL (3.4-5.0); ALBUMIN/GLOBULIN RATIO 0.7 (1.0-1.7); TOTAL BILIRUBIN 0.7 mg/dL (0.2-1.0); TOTAL PROTEIN 8.3 g/dL (6.4-8.2)
[2017-07-31 18:10] LABS: OBC FLU VALID
[2017-07-31] MEDS ORDERED: OSELTAMIVIR 75 MG CAPSULE PO ONE (18:15)
[2017-07-31] MEDS ORDERED: ONDANSETRON PF 4 MG/2 ML VIAL. IV PRN (18:30)
[2017-07-31] MEDS ORDERED: MORPHINE SULFATE 2 MG/ML DISP.SYRIN. IV PRN (18:30)
[2017-07-31] MEDS: IV NORMAL SALINE 1000ML BAG 1,000 ML IV SCH ×2 (18:58→21:15)
--- NOTE | 2017-07-31 20:45 | PHYS DOC ---
Past Medical History Past Medical History: Anxiety, Cancer, GERD, High Cholesterol, Hypotension, Hepatitis, Other Additional Past Medical Histor: chronic back pain; colon ca-CHEMO & RADIATION; former hep C,PANIC ATTACKS Past Surgical History: Other Additional Past Surgical Histo: liver transplant,PORT-A-CATH -removal Alcohol Use: None Drug Use: Marijuana Social History Narrative: last use yesterday Adult General Chief Complaint Chief Complaint: FLU SYMPTOM HPI HPI 72-year-old male with a history of liver transplant now sent to the emergency room for evaluation of headache body aches and fever. Patient states he is very achy and fatigued. He does have a mild headache that was gradual onset. No stiff neck. He has no chest pain or shortness of breath denies abdominal pain and is able to ambulate without difficulty. He is a patient of Dr. Nieves. Temperature 100.5 on arrival. Review of Systems Review of Systems Constitutional: Denies fever or chills [] Eyes: Denies change in visual acuity, redness, or eye pain [] HENT: Denies nasal congestion or sore throat [] Respiratory: Denies cough or shortness of breath [] Cardiovascular: No additional information not addressed in HPI [] GI: Denies abdominal pain, nausea, vomiting, bloody stools or diarrhea [] : Denies dysuria or hematuria [] Musculoskeletal: Denies back pain or joint pain [] Integument: Denies rash or skin lesions [] Neurologic: Denies headache, focal weakness or sensory changes [] Endocrine: Denies polyuria or polydipsia [] All other systems were reviewed and found to be within normal limits, except as documented in this note. Current Medications Current Medications Current Medications Medications (Trade) Dose Ordered Sig/Sarahy Start Time Stop Time Status Last Admin Dose Admin Hydromorphone HCl (Dilaudid) 1 mg 1X ONCE 07/31/17 17:30 07/31/17 17:31 DC 07/31/17 17:34 1 MG Morphine Sulfate 2 mg PRN Q2HR PRN 07/31/17 18:30 08/01/17 18:29 Ondansetron HCl (Zofran) 4 mg PRN Q8HRS PRN 07/31/17 18:30 08/01/17 18:29 Oseltamivir Phosphate (Tamiflu) 75 mg ONCE ONCE 07/31/17 18:15 07/31/17 18:16 DC 07/31/17 18:57 75 MG Piperacillin Sod/ Tazobactam Sod (Zosyn) 4.5 gm 1X ONCE 07/31/17 17:00 07/31/17 17:01 DC 07/31/17 17:25 4.5 GM Piperacillin Sod/ Tazobactam Sod 4.5 gm/Dextrose 100 ml @ 200 mls/hr 1X ONCE 07/31/17 16:45 07/31/17 16:49 DC Sodium Chloride 1,000 ml @ 2,670 mls/hr Q23M 07/31/17 18:30 07/31/17 19:30 DC 07/31/17 20:23 2,670 MLS/HR Vancomycin HCl 250 ml @ 250 mls/hr 1X ONCE 07/31/17 16:45 07/31/17 17:44 UNV Vancomycin HCl 2 gm/Dextrose 500 ml @ 250 mls/hr 1X ONCE 07/31/17 17:00 07/31/17 18:59 DC 07/31/17 17:25 250 MLS/HR Allergies Allergies Allergies Coded Allergies Type Severity Reaction Last Updated Verified Iodinated Contrast- Oral and IV Dye Allergy Intermediate 04/20/16 Yes testosterone Allergy Intermediate 04/20/16 Yes I S O L A T I O N *CONTACT* Allergy Unknown 04/20/16 Yes Physical Exam Physical Exam Well-appearing 72-year-old male in no acute distress. Mildly dry mucous membranes but supple neck. Clear lungs regular rate and rhythm with very mild tachycardia around 105.. Benign abdomen normal extremities with a nonfocal neurologic exam. Patient has a completely nonfocal neurologic exam. He does have a clinical fever but again no meningismus whatsoever Constitutional: Well developed, well nourished, no acute distress, non-toxic appearance. [] HENT: Normocephalic, atraumatic, bilateral external ears normal, oropharynx moist, no oral exudates, nose normal. [] Eyes: PERRLA, EOMI, conjunctiva normal, no discharge. [] Neck: Normal range of motion, no tenderness, supple, no stridor. [] Cardiovascular:Heart rate regular rhythm, no murmur [] Lungs & Thorax: Bilateral breath sounds clear to auscultation [] Abdomen: Bowel sounds normal, soft, no tenderness, no masses, no pulsatile masses. [] Skin: Warm, dry, no erythema, no rash. [] Back: No tenderness, no CVA tenderness. [] Extremities: No tenderness, no cyanosis, no clubbing, ROM intact, no edema. [] Neurologic: Alert and oriented X 3, normal motor function, normal sensory function, no focal deficits noted. [] Psychologic: Affect normal, judgement normal, mood normal. [] Current Patient Data Vital Signs Vital Signs Date Time Temp Pulse Resp B/P (MAP) Pulse Ox O2 Delivery O2 Flow Rate FiO2 07/31/17 17:34 20 95 Room Air 07/31/17 16:11 100.5 104 109/72 (84) 100.5 Lab Values Laboratory Tests Test 07/31/17 16:35 07/31/17 17:04 Influenza Type A Antigen Positive (NEGATIVE) Influenza Type B Antigen Negative (NEGATIVE) White Blood Count 4.6 x10^3/uL (4.0-11.0) Red Blood Count 4.13 x10^6/uL (4.30-5.70) L Hemoglobin 12.5 g/dL (13.0-17.5) L Hematocrit 37.2 % (39.0-53.0) L Mean Corpuscular Volume 90 fL (79-100) Mean Corpuscular Hemoglobin 30 pg (25-35) Mean Corpuscular Hemoglobin Concent 34 g/dL (31-37) Red Cell Distribution Width 13.9 % (11.5-14.5) Platelet Count 97 x10^3/uL (140-400) L Neutrophils (%) (Auto) 84 % (31-73) H Lymphocytes (%) (Auto) 8 % (24-48) L Monocytes (%) (Auto) 7 % (0-9) Eosinophils (%) (Auto) 1 % (0-3) Basophils (%) (Auto) 0 % (0-3) Neutrophils # (Auto) 3.8 x10^3uL (1.8-7.7) Lymphocytes # (Auto) 0.4 x10^3/uL (1.0-4.8) L Monocytes # (Auto) 0.3 x10^3/uL (0.0-1.1) Eosinophils # (Auto) 0.0 x10^3/uL (0.0-0.7) Basophils # (Auto) 0.0 x10^3/uL (0.0-0.2) Urine Collection Type Unknown Urine Color Yellow Urine Clarity Clear Urine pH 8.5 Urine Specific [place] 1.020 Urine Protein Negative mg/dL (NEG-TRACE) Urine Glucose (UA) Negative mg/dL (NEG) Urine Ketones (Stick) 15 mg/dL (NEG) Urine Blood Trace (NEG) Urine Nitrite Negative (NEG) Urine Bilirubin Negative (NEG) Urine Urobilinogen Dipstick 0.2 mg/dL (0.2 mg/dL) Urine Leukocyte Esterase Negative (NEG) Urine RBC 6-10 /HPF (0-2) Urine WBC Occ /HPF (0-4) Urine Squamous Epithelial Cells Occ /LPF Urine Bacteria 0 /HPF (0-FEW) Sodium Level 135 mmol/L (136-145) L Potassium Level 3.9 mmol/L (3.5-5.1) Chloride Level 97 mmol/L (98-107) L Carbon Dioxide Level 30 mmol/L (21-32) Anion Gap 8 (6-14) Blood Urea Nitrogen 19 mg/dL (8-26) Creatinine 1.3 mg/dL (0.7-1.3) Estimated GFR (Cockcroft-Gault) 54.4 BUN/Creatinine Ratio 15 (6-20) Glucose Level 158 mg/dL (70-99) H Lactic Acid Level 1.4 mmol/L (0.4-2.0) Calcium Level 9.1 mg/dL (8.5-10.1) Total Bilirubin 0.7 mg/dL (0.2-1.0) Aspartate Amino Transferase (AST) 22 U/L (15-37) Alanine Aminotransferase (ALT) 22 U/L (16-63) Alkaline Phosphatase 106 U/L (46-116) Troponin I Quantitative < 0.017 ng/mL (0.000-0.055) Total Protein 8.3 g/dL (6.4-8.2) H Albumin 3.3 g/dL (3.4-5.0) L Albumin/Globulin Ratio 0.7 (1.0-1.7) L Laboratory Tests 07/31/17 17:04 Laboratory Tests 07/31/17 17:04 EKG EKG EKG with normal sinus tachycardia at 104 normal axis no STEMI nonspecific ST and T-wave findings interpreted by me[] Radiology/Procedures Radiology/Procedures [Chest x-ray with stable elevated left hemidiaphragm no change prior study interpreted by me and reports previous study reviewed.] Course & Med Decision Making Course & Med Decision Making Pertinent Labs and Imaging studies reviewed. (See chart for details) Patient with mild tachycardia and fever consistent with Sirs and sepsis. Chest x -ray unremarkable however with dramatically elevated left hemidiaphragm which is chronic and unchanged from prior study. EKG benign. Influenza positive. Case discussed with [facility] primary care doctor Dr. Nieves who is aware of history and findings requests Tamiflu administration and inpatient admission to his service given patient's immunocompromised status in the setting of liver transplant history. Patient stable on reevaluation prior to admission. [] Dragon Disclaimer Dragon Disclaimer This electronic medical record was generated, in whole or in part, using a voice recognition dictation system. Departure Departure Impression: Primary Impression: Tachycardia Additional Impressions: Influenza Systemic inflammatory response syndrome (SIRS) Sepsis Fever Disposition: ADMITTED INPATIENT Admitting Physician: Eleni Nieves Condition: IMPROVED Referrals: ELENI NIEVES MD (PCP) Problem Qualifiers ROMAN MURDOCK MD Jul 31, 2017 20:45
[2017-07-31] MEDS: MORPHINE SULFATE 4 MG/ML DISP.SYRIN. IV PRN (23:19)
[2017-08-01] MEDS: MORPHINE SULFATE 4 MG/ML DISP.SYRIN. IV PRN ×7 (01:19→19:54)
[2017-08-01] MEDS ORDERED: LEVO50TA5 PO (02:41)
[2017-08-01] MEDS ORDERED: MAGN400T3 PO (02:41)
[2017-08-01] MEDS ORDERED: CHOL500016 PO (02:45)
[2017-08-01] MEDS ORDERED: MULT-690 PO (02:49)
[2017-08-01] MEDS: IV NORMAL SALINE 1000ML BAG 1,000 ML IV SCH ×3 (03:24→16:28)
[2017-08-01 03:39] VITALS: BP 97/68
--- NOTE | 2017-08-01 06:26 | EKG ---
[facility] [address] [place] [address] Test Date: 2017-07-31 Test Time: 16:24:46 Pat Name: MARCIO MANRIQUE Department: Room: [facility] Gender: M Contact Person: : 1945 Requested By: ROMAN MURDOCK Order Number: [id number] Reading MD: Jeremiah Alegria MD Measurements Intervals [place] Rate: 104 P: 43 DC: 184 QRS: -77 QRSD: 108 T: 31 QT: 310 QTc: 413 Interpretive Statements SINUS TACHYCARDIA INCOMPLETE RIGHT BUNDLE BRANCH BLOCK Electronically Signed On 08-04-2017 14:09:08 [facility] by Jeremiah Alegria MD
[2017-08-01] MEDS ORDERED: ACETAMINOPHEN 650 MG/20.3 ML SOLUTION. PEG PRN (10:00)
[2017-08-01] MEDS ORDERED: DIPHENOXYLATE/ATROPINE TABLET. PO PRN (10:00)
[2017-08-01] MEDS ORDERED: ONDANSETRON PF 4 MG/2 ML VIAL. IV PRN (10:00)
[2017-08-01] MEDS ORDERED: LORazepam 0.5 MG TABLET PO PRN (10:00)
[2017-08-01] MEDS ORDERED: HYDROmorphone 2 MG TABLET PO PRN (10:00)
--- NOTE | 2017-08-01 10:22 | PDOC1 ---
GUY FLEMING INK JET OPERATOR 08/01/17 1022: HISTORY AND PHYSICAL Chief Complaint Chief Complaint This 72 year old Citizen Of [place] male has been admitted with a chief complaint of headache, body aches and fever presented to the ED for evaluation. Labs were essentially unremarkable except for positive influenzae A. CXR was negative. EKG sinus tach. He as given on dose of Tamiflu 75mg po, Zosyn and Vancomycin IV also was administered. He is admitted to the medical surgical floor for further treatment due to his underlying immunosuppression from h/o liver transplant. Problem List Problems Medical Problems: (1) Fever Status: Acute (2) Sepsis Status: Acute (3) Systemic inflammatory response syndrome (SIRS) Status: Acute Past Medical History Cardiovascular: AFIB (off anticoagulation ), HTN, Other (h/o PVD, SVT) Pulmonary: COPD, Pneumonia (h/o) CENTRAL NERVOUS SYSTEM: Other GI: Hemorrhoids (external ) Heme/Onc: Anemia NOS, Other Hepatobiliary: Hep A/B/C, Other Psych: Anxiety, Depression, Panic Musculoskeletal: low back pain (chronic DDD, DJD with radiculitis LS, ), No pain, Other (cervical/thoracic DDD DJD ) Renal/: Chronic renal insuff, Other (ED ) Endocrine: Osteoporosis Past Surgical History PSH liver transplant 2002 on prograf Past Family History Family History: Heart Disease (Mother father) Past Social History PSH single, family supportive. remote h/o tobacco, no h/o ETOH, + narcotic abuse with detox in November 2016 Review of Symptoms Review of Symptoms A 14 point ROS was completed with the following noted as positive: per HPI Other systems reviewed and negative. Medications Medications reviewed and reconciled Allergy Allergies Coded Allergies Type Severity Reaction Last Updated Verified Iodinated Contrast- Oral and IV Dye Allergy Intermediate 04/20/16 Yes testosterone Allergy Intermediate 04/20/16 Yes Physical Exam Physical Exam General appearance - alert,well appearing, and in no distress and oriented to person, place, and time Mental Status - alert, oriented to person, place, and time, affect appropriate to mood Head - normal Chest - clear to auscultation, no wheezes, rales or rhonchi, symmetric air entry Heart - S1 and S2 normal Abdomen - soft, nontender, nondistended, no masses or organomegaly Neurological - alert and oriented Musculoskeletal - no muscular tenderness noted Extremities - no pedal edema Skin - warm and dry VTE Prophylaxis Ordered VTE Prophylaxis Devices: No VTE Pharmacological Prophylaxi: No Assessment Labs Laboratory Tests Test 07/31/17 16:35 07/31/17 17:04 07/31/17 20:35 Influenza Type A Antigen Positive (NEGATIVE) Influenza Type B Antigen Negative (NEGATIVE) White Blood Count 4.6 x10^3/uL (4.0-11.0) Red Blood Count 4.13 x10^6/uL (4.30-5.70) Hemoglobin 12.5 g/dL (13.0-17.5) Hematocrit 37.2 % (39.0-53.0) Mean Corpuscular Volume 90 fL (79-100) Mean Corpuscular Hemoglobin 30 pg (25-35) Mean Corpuscular Hemoglobin Concent 34 g/dL (31-37) Red Cell Distribution Width 13.9 % (11.5-14.5) Platelet Count 97 x10^3/uL (140-400) Neutrophils (%) (Auto) 84 % (31-73) Lymphocytes (%) (Auto) 8 % (24-48) Monocytes (%) (Auto) 7 % (0-9) Eosinophils (%) (Auto) 1 % (0-3) Basophils (%) (Auto) 0 % (0-3) Neutrophils # (Auto) 3.8 x10^3uL (1.8-7.7) Lymphocytes # (Auto) 0.4 x10^3/uL (1.0-4.8) Monocytes # (Auto) 0.3 x10^3/uL (0.0-1.1) Eosinophils # (Auto) 0.0 x10^3/uL (0.0-0.7) Basophils # (Auto) 0.0 x10^3/uL (0.0-0.2) Urine Collection Type Unknown Urine Color Yellow Urine Clarity Clear Urine pH 8.5 Urine Specific [place] 1.020 Urine Protein Negative mg/dL (NEG-TRACE) Urine Glucose (UA) Negative mg/dL (NEG) Urine Ketones (Stick) 15 mg/dL (NEG) Urine Blood Trace (NEG) Urine Nitrite Negative (NEG) Urine Bilirubin Negative (NEG) Urine Urobilinogen Dipstick 0.2 mg/dL (0.2 mg/dL) Urine Leukocyte Esterase Negative (NEG) Urine RBC 6-10 /HPF (0-2) Urine WBC Occ /HPF (0-4) Urine Squamous Epithelial Cells Occ /LPF Urine Bacteria 0 /HPF (0-FEW) Sodium Level 135 mmol/L (136-145) Potassium Level 3.9 mmol/L (3.5-5.1) Chloride Level 97 mmol/L (98-107) Carbon Dioxide Level 30 mmol/L (21-32) Anion Gap 8 (6-14) Blood Urea Nitrogen 19 mg/dL (8-26) Creatinine 1.3 mg/dL (0.7-1.3) Estimated GFR (Cockcroft-Gault) 54.4 BUN/Creatinine Ratio 15 (6-20) Glucose Level 158 mg/dL (70-99) Lactic Acid Level 1.4 mmol/L (0.4-2.0) 1.2 mmol/L (0.4-2.0) Calcium Level 9.1 mg/dL (8.5-10.1) Total Bilirubin 0.7 mg/dL (0.2-1.0) Aspartate Amino Transf (AST/SGOT) 22 U/L (15-37) Alanine Aminotransferase (ALT/SGPT) 22 U/L (16-63) Alkaline Phosphatase 106 U/L (46-116) Troponin I Quantitative < 0.017 ng/mL (0.000-0.055) Total Protein 8.3 g/dL (6.4-8.2) Albumin 3.3 g/dL (3.4-5.0) Albumin/Globulin Ratio 0.7 (1.0-1.7) Laboratory Tests Test 07/31/17 16:35 07/31/17 17:04 07/31/17 20:35 Influenza Type A Antigen Positive (NEGATIVE) Influenza Type B Antigen Negative (NEGATIVE) White Blood Count 4.6 x10^3/uL (4.0-11.0) Red Blood Count 4.13 x10^6/uL (4.30-5.70) Hemoglobin 12.5 g/dL (13.0-17.5) Hematocrit 37.2 % (39.0-53.0) Mean Corpuscular Volume 90 fL (79-100) Mean Corpuscular Hemoglobin 30 pg (25-35) Mean Corpuscular Hemoglobin Concent 34 g/dL (31-37) Red Cell Distribution Width 13.9 % (11.5-14.5) Platelet Count 97 x10^3/uL (140-400) Neutrophils (%) (Auto) 84 % (31-73) Lymphocytes (%) (Auto) 8 % (24-48) Monocytes (%) (Auto) 7 % (0-9) Eosinophils (%) (Auto) 1 % (0-3) Basophils (%) (Auto) 0 % (0-3) Neutrophils # (Auto) 3.8 x10^3uL (1.8-7.7) Lymphocytes # (Auto) 0.4 x10^3/uL (1.0-4.8) Monocytes # (Auto) 0.3 x10^3/uL (0.0-1.1) Eosinophils # (Auto) 0.0 x10^3/uL (0.0-0.7) Basophils # (Auto) 0.0 x10^3/uL (0.0-0.2) Urine Collection Type Unknown Urine Color Yellow Urine Clarity Clear Urine pH 8.5 Urine Specific [place] 1.020 Urine Protein Negative mg/dL (NEG-TRACE) Urine Glucose (UA) Negative mg/dL (NEG) Urine Ketones (Stick) 15 mg/dL (NEG) Urine Blood Trace (NEG) Urine Nitrite Negative (NEG) Urine Bilirubin Negative (NEG) Urine Urobilinogen Dipstick 0.2 mg/dL (0.2 mg/dL) Urine Leukocyte Esterase Negative (NEG) Urine RBC 6-10 /HPF (0-2) Urine WBC Occ /HPF (0-4) Urine Squamous Epithelial Cells Occ /LPF Urine Bacteria 0 /HPF (0-FEW) Sodium Level 135 mmol/L (136-145) Potassium Level 3.9 mmol/L (3.5-5.1) Chloride Level 97 mmol/L (98-107) Carbon Dioxide Level 30 mmol/L (21-32) Anion Gap 8 (6-14) Blood Urea Nitrogen 19 mg/dL (8-26) Creatinine 1.3 mg/dL (0.7-1.3) Estimated GFR (Cockcroft-Gault) 54.4 BUN/Creatinine Ratio 15 (6-20) Glucose Level 158 mg/dL (70-99) Lactic Acid Level 1.4 mmol/L (0.4-2.0) 1.2 mmol/L (0.4-2.0) Calcium Level 9.1 mg/dL (8.5-10.1) Total Bilirubin 0.7 mg/dL (0.2-1.0) Aspartate Amino Transf (AST/SGOT) 22 U/L (15-37) Alanine Aminotransferase (ALT/SGPT) 22 U/L (16-63) Alkaline Phosphatase 106 U/L (46-116) Troponin I Quantitative < 0.017 ng/mL (0.000-0.055) Total Protein 8.3 g/dL (6.4-8.2) Albumin 3.3 g/dL (3.4-5.0) Albumin/Globulin Ratio 0.7 (1.0-1.7) Plan Plan IMPRESSION: 1. Influenzae A no sepsis 2. Acute bronchitis 3. acute on LBP LS with additional body aches 4. anxiety with panic attacks 5. HTN 6. h/o rectal cancer with chronic radiation proctitis/diarrhea 7. 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 depression 9. chronic pain management LBP/cervical pain 10. OA generalized 11.AECOPD POA 12. h/o PVD 13. h/o SVT 14. AFib h/o no anticoagulation 15. CKD II no ARF OMAR 16. chronic immunosuppression secondary to medication/liver transplant PLAN: influenzae A - tamiflu - ID consult due to immunosuppression AB/AE COPD - nebulizer - mucinex - medrol dose charly a/c pain - h/o narcotic abuse with <6 month detox - tylenol and MS 2mg IV q4 hr - titrate MS off over the next few days HTN - continue home meds h/o liver transplant - continue tacrolimus CKD II- monitor chronic diarrhea - resume chronic meds For more details regarding further plans, please refer to the orders. ELENI NIEVES MD 08/01/17 1042: HISTORY AND PHYSICAL Plan Plan Patient was weaned off Methadone in November. He is asking for lot of pain meds. Advised that narcotics are not appropriate for body aches caused by Flu. Tylenol prn for short time only for fever and pain- has cirrhosis of liver. Wean off Morphine. The patient was seen and examined by me. Chart reviewed and plan of care formulated. Discussed with, reviewed and agree with PAYROLL BOOKKEEPER's notes, plan of care and orders with modifications as necessary. For more details regarding further plans, please refer to the orders. GUY FLEMING APRN Aug 01, 2017 10:22 ELENI NIEVES MD Aug 01, 2017 10:42
--- NOTE | 2017-08-01 10:58 | PDOC ---
Infectious Disease Note ROS ROS Vital Sign Vital Signs Vital Signs Date Time Temp Pulse Resp B/P (MAP) Pulse Ox O2 Delivery O2 Flow Rate FiO2 08/01/17 08:16 97 Room Air 08/01/17 08:00 2.0 08/01/17 03:39 98.7 93 20 97/68 (78) 98.7 Labs Lab Laboratory Tests Test 07/31/17 16:35 07/31/17 17:04 07/31/17 20:35 Influenza Type A Antigen Positive (NEGATIVE) Influenza Type B Antigen Negative (NEGATIVE) White Blood Count 4.6 x10^3/uL (4.0-11.0) Red Blood Count 4.13 x10^6/uL (4.30-5.70) Hemoglobin 12.5 g/dL (13.0-17.5) Hematocrit 37.2 % (39.0-53.0) Mean Corpuscular Volume 90 fL (79-100) Mean Corpuscular Hemoglobin 30 pg (25-35) Mean Corpuscular Hemoglobin Concent 34 g/dL (31-37) Red Cell Distribution Width 13.9 % (11.5-14.5) Platelet Count 97 x10^3/uL (140-400) Neutrophils (%) (Auto) 84 % (31-73) Lymphocytes (%) (Auto) 8 % (24-48) Monocytes (%) (Auto) 7 % (0-9) Eosinophils (%) (Auto) 1 % (0-3) Basophils (%) (Auto) 0 % (0-3) Neutrophils # (Auto) 3.8 x10^3uL (1.8-7.7) Lymphocytes # (Auto) 0.4 x10^3/uL (1.0-4.8) Monocytes # (Auto) 0.3 x10^3/uL (0.0-1.1) Eosinophils # (Auto) 0.0 x10^3/uL (0.0-0.7) Basophils # (Auto) 0.0 x10^3/uL (0.0-0.2) Urine Collection Type Unknown Urine Color Yellow Urine Clarity Clear Urine pH 8.5 Urine Specific [place] 1.020 Urine Protein Negative mg/dL (NEG-TRACE) Urine Glucose (UA) Negative mg/dL (NEG) Urine Ketones (Stick) 15 mg/dL (NEG) Urine Blood Trace (NEG) Urine Nitrite Negative (NEG) Urine Bilirubin Negative (NEG) Urine Urobilinogen Dipstick 0.2 mg/dL (0.2 mg/dL) Urine Leukocyte Esterase Negative (NEG) Urine RBC 6-10 /HPF (0-2) Urine WBC Occ /HPF (0-4) Urine Squamous Epithelial Cells Occ /LPF Urine Bacteria 0 /HPF (0-FEW) Sodium Level 135 mmol/L (136-145) Potassium Level 3.9 mmol/L (3.5-5.1) Chloride Level 97 mmol/L (98-107) Carbon Dioxide Level 30 mmol/L (21-32) Anion Gap 8 (6-14) Blood Urea Nitrogen 19 mg/dL (8-26) Creatinine 1.3 mg/dL (0.7-1.3) Estimated GFR (Cockcroft-Gault) 54.4 BUN/Creatinine Ratio 15 (6-20) Glucose Level 158 mg/dL (70-99) Lactic Acid Level 1.4 mmol/L (0.4-2.0) 1.2 mmol/L (0.4-2.0) Calcium Level 9.1 mg/dL (8.5-10.1) Total Bilirubin 0.7 mg/dL (0.2-1.0) Aspartate Amino Transf (AST/SGOT) 22 U/L (15-37) Alanine Aminotransferase (ALT/SGPT) 22 U/L (16-63) Alkaline Phosphatase 106 U/L (46-116) Troponin I Quantitative < 0.017 ng/mL (0.000-0.055) Total Protein 8.3 g/dL (6.4-8.2) Albumin 3.3 g/dL (3.4-5.0) Albumin/Globulin Ratio 0.7 (1.0-1.7) Objective Assessment Influenza A - POA 07/31 Fever Immunosuppression s/p OLT CKD H/o Hep C treated with Harvoni Plan Plan of Care Agree with Tamiflu Hold further abx F/u labs and cults Thank you # [id number] MARIAMA HERNANDEZ MD Aug 01, 2017 10:58
[2017-08-01] MEDS: METOPROLOL TART IMMED RELEASE 50 MG TABLET. PO SCH ×3 (10:59→21:26)
[2017-08-01 11:00] VITALS: BP 79/50
[2017-08-01] MEDS: TACROLIMUS 1 MG CAPSULE PO SCH ×2 (11:00→21:19)
[2017-08-01] MEDS: CHOLECALCIFEROL (VITAMIN D3) 5,000 UNIT CAPSULE PO SCH (11:01)
[2017-08-01] MEDS: MAGNESIUM OXIDE 400 MG TABLET PO SCH (11:01)
[2017-08-01] MEDS: OSELTAMIVIR 75 MG CAPSULE PO SCH ×2 (11:01→21:20)
[2017-08-01] MEDS: MULTIVITAMIN with MINERAL TABLET. PO SCH (11:01)
[2017-08-01] MEDS: predniSONE 20 MG TABLET PO SCH (11:02)
[2017-08-01] MEDS: LEVOTHYROXINE 50 MCG TABLET PO SCH (11:02)
[2017-08-01] MEDS: ASCORBIC ACID 500 MG TABLET PO SCH (11:02)
[2017-08-01] MEDS: IPRATRPIUM/ALBUTEROL 0.5/2.5MG 3 ML NEBU. NEB SCH ×3 (11:50→20:22)
[2017-08-01 13:04] VITALS: BP 125/55
[2017-08-01 15:00] VITALS: BP 143/57
[2017-08-01] MEDS: COLESTIPOL HCL 1 GM TABLET PO SCH ×2 (15:24→21:20)
[2017-08-01 19:10] VITALS: BP 132/54
[2017-08-01] MEDS ORDERED: MONTELUKAST SODIUM 10 MG TABLET. PO SCH (21:00)
[2017-08-01] MEDS ORDERED: GABAPENTIN 100 MG CAPSULE. PO SCH (21:00)
[2017-08-01] MEDS ORDERED: METHADONE 5 MG TABLET. PO SCH (21:00)
[2017-08-01] MEDS: TAMSULOSIN 0.4 MG CAP.ER.24H. PO SCH (21:19)
--- NOTE | 2017-08-01 22:46 | CONS ---
DATE OF CONSULTATION: 08/01/2017 INFECTIOUS DISEASE CONSULTATION LOCATION: The patient is in room #667. REQUESTING PHYSICIAN: Dr. Soliz. REASON FOR CONSULTATION: Immunosuppression influenza A. HISTORY OF PRESENT ILLNESS: The patient is a pleasant 72-year-old gentleman with history of hep C and also has history of hepatocellular cancer and has undergone a liver transplant. Posttransplant, he was treated with Harvoni as his hepatitis C reoccurred and caused some cirrhosis. He has been doing fairly well until when he became acutely ill, became gradually he states with some generalized aches, then followed by worsening aches, headaches, nausea, fever, and dry throat. He states that his 19-year-old grandson lives with him and has been ill. Because of his illness, he presented to [facility] and is now being diagnosed with influenza A. He has been given Tamiflu, a dose of vancomycin and Zosyn and admitted to the hospital. Chest x-ray did not show any acute process. PAST MEDICAL HISTORY: Positive for atrial fibrillation, hypertension, SVT, COPD, gastritis, hemorrhoids, hepatitis C, hepatocellular carcinoma, liver transplant, rectal cancer with history of chemotherapy, radiation, anemia, anxiety, depression, low back pain with radiculitis, osteoarthritis, chronic renal insufficiency, and osteoporosis. He does have a history of metapneumovirus in 10/2015. PAST SURGICAL HISTORY: Positive for the liver transplant. REVIEW OF SYSTEMS: Otherwise negative except for mentioned above. ALLERGIES: Listed, TESTOSTERONE, IODINE AND IV CONTRAST. SOCIAL HISTORY: He is a former smoker, does have a distant history of illicit drug use. Lives with his family including his grandson who is 19 has recently been ill. FAMILY HISTORY: Positive for coronary artery disease. CURRENT MEDICATIONS: Include vancomycin, Zosyn x 1. He is on Colestid, Lomotil, Neurontin, Mucinex, Dilaudid, Synthroid, metoprolol, Singulair, Tamiflu, prednisone, tacrolimus, Flomax. PHYSICAL EXAMINATION: VITAL SIGNS: Temperature was 100.5 on arrival, currently at 98.7, pulse 93, respirations 20, satting 97% on 2 liters, blood pressure 97/68. CONSTITUTIONAL: He is a pleasant gentleman. He is cooperative. He is lying in bed. He is in no acute distress. HEENT: Pupils are equal and reactive. Oral cavity, pharynx is clear. NECK: Supple, no JVD. LUNGS: Without wheeze or rhonchi. HEART: S1, S2. ABDOMEN: Soft, nontender, nondistended with positive bowel sounds. EXTREMITIES: No clubbing or cyanosis. No gross edema. SKIN: Warm to touch without signs of rash. No joint swelling. NEUROLOGIC: He is alert, moves all extremities. PSYCHIATRIC: Affect is appropriate. LABORATORY VALUES: White count 4.6, hemoglobin 12.5, platelets of 97 with 84 segs, 8 lymphs. Creatinine was 1.3, glucose 158. Normal liver function study tests. IMPRESSION: 1. Influenza A, present on admission from the . 2. Fever. 3. Immunosuppression. 4. Chronic kidney disease. 5. History of hepatitis C, treated with Harvoni. RECOMMENDATIONS: Agree with Tamiflu, would hold further antibiotics and follow up labs and cultures. Thank you for allowing me to participate in the patient's care. Should you have any further questions, please do not hesitate to contact me. MARIAMA HERNANDEZ MD DR: ELENA/silvina JOB#: [id number] / [id number]
[2017-08-01 23:10] VITALS: BP 123/61
[2017-08-02 03:10] VITALS: BP 143/62
[2017-08-02 04:34] LABS: BASO % 0 % (0-3); EOS % 1 % (0-3); HEMOGLOBIN 10.6 g/dL (13.0-17.5); LYMPH # 0.4 x10^3/uL (1.0-4.8); LYMPH % 18 % (24-48); MEAN CORPUSCULAR HEMOGLOBIN 31 pg (25-35); MEAN CORPUSCULAR HGB CONC 34 g/dL (31-37); MEAN CORPUSCULAR VOLUME 90 fL (79-100); MONO % 16 % (0-9); NEUT % 64 % (31-73); PLATELET COUNT 62 x10^3/uL (140-400); RED BLOOD COUNT 3.44 x10^6/uL (4.30-5.70); RED CELL DISTRIBUTION WIDTH 14.1 % (11.5-14.5); WHITE BLOOD COUNT 2.2 x10^3/uL (4.0-11.0)
[2017-08-02 04:45] LABS: CALCIUM 8.1 mg/dL (8.5-10.1); CREATININE 1.1 mg/dL (0.7-1.3); POTASSIUM 3.6 mmol/L (3.5-5.1)
[2017-08-02] MEDS: LEVOTHYROXINE 50 MCG TABLET PO SCH (06:13)
[2017-08-02 07:00] VITALS: BP 122/57
[2017-08-02] MEDS: IPRATRPIUM/ALBUTEROL 0.5/2.5MG 3 ML NEBU. NEB SCH (07:07)
[2017-08-02] MEDS: ASCORBIC ACID 500 MG TABLET PO SCH (08:34)
[2017-08-02] MEDS: OSELTAMIVIR 75 MG CAPSULE PO SCH (08:35)
[2017-08-02] MEDS: TACROLIMUS 1 MG CAPSULE PO SCH (08:35)
[2017-08-02] MEDS: CHOLECALCIFEROL (VITAMIN D3) 5,000 UNIT CAPSULE PO SCH (08:35)
[2017-08-02] MEDS: MAGNESIUM OXIDE 400 MG TABLET PO SCH (08:35)
[2017-08-02] MEDS: TAMSULOSIN 0.4 MG CAP.ER.24H. PO SCH (08:35)
[2017-08-02] MEDS: COLESTIPOL HCL 1 GM TABLET PO SCH (08:35)
[2017-08-02] MEDS: predniSONE 20 MG TABLET PO SCH (08:35)
[2017-08-02] MEDS: METOPROLOL TART IMMED RELEASE 50 MG TABLET. PO SCH ×2 (08:35→08:38)
[2017-08-02] MEDS: MULTIVITAMIN with MINERAL TABLET. PO SCH (08:35)
[2017-08-02 11:03] VITALS: BP 131/77
[2017-08-02] MEDS ORDERED: OSEL75CA PO ×2 (11:16→11:55)
--- NOTE | 2017-08-02 11:54 | PDOC ---
PROGRESS NOTES Subjective Subjective feeling better wanting to go home Objective Objective Vital Signs Date Time Temp Pulse Resp B/P (MAP) Pulse Ox O2 Delivery O2 Flow Rate FiO2 08/02/17 11:03 98.1 83 18 131/77 (95) 99 Nasal Cannula 3.0 98.1 Intake and Output 08/02/17 07:00 Intake Total 480 ml Output Total 1550 ml Balance -1070 ml Intake Oral 480 ml Output Urine Total 1550 ml Physical Exam Abdomen: Normal bowel sounds, Soft Heart: Regular rate, Normal S1, Normal S2 Extremities: No clubbing, No cyanosis General: Alert, Oriented X3 HEENT: Atraumatic Lungs: Clear to auscultation MUSCULOSKELETAL: No deformity Neck: Supple Neuro: Normal speech Psych/Mental Status: Mental status NL Skin: No breakdown Diagnosis Problem List Problems Medical Problems: (1) Fever Status: Acute (2) Sepsis Status: Acute (3) Systemic inflammatory response syndrome (SIRS) Status: Acute Assessment Assessment Problems Medical Problems: (1) Fever Status: Acute (2) Sepsis Status: Acute (3) Systemic inflammatory response syndrome (SIRS) Status: Acute IMPRESSION: 1. Influenzae A no sepsis improving. 2. Acute bronchitis 3. acute on LBP LS with additional body aches 4. anxiety with panic attacks 5. HTN 6. h/o rectal cancer with chronic radiation proctitis/diarrhea 7. 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 depression 9. chronic pain management LBP/cervical pain 10. OA generalized 11.AECOPD POA 12. h/o PVD 13. h/o SVT 14. AFib h/o no anticoagulation 15. CKD II no ARF OMAR 16. chronic immunosuppression secondary to medication/liver transplant PLAN: d/c home today on Tamiflu. f/u office in 1 week. influenzae A - tamiflu - ID consult due to immunosuppression AB/AE COPD - nebulizer - mucinex - medrol dose charly a/c pain - h/o narcotic abuse with <6 month detox - tylenol and MS 2mg IV q4 hr - titrate MS off over the next few days HTN - continue home meds h/o liver transplant - continue tacrolimus CKD II- monitor chronic diarrhea - resume chronic meds Problems: Plan Plan of Care Problems Medical Problems: (1) Fever Status: Acute (2) Sepsis Status: Acute (3) Systemic inflammatory response syndrome (SIRS) Status: Acute Comment Review of Relevant I have reviewed the following items minda (where applicable) has been applied. Labs Laboratory Tests Test 08/02/17 03:50 White Blood Count 2.2 x10^3/uL (4.0-11.0) Red Blood Count 3.44 x10^6/uL (4.30-5.70) Hemoglobin 10.6 g/dL (13.0-17.5) Hematocrit 31.0 % (39.0-53.0) Mean Corpuscular Volume 90 fL (79-100) Mean Corpuscular Hemoglobin 31 pg (25-35) Mean Corpuscular Hemoglobin Concent 34 g/dL (31-37) Red Cell Distribution Width 14.1 % (11.5-14.5) Platelet Count 62 x10^3/uL (140-400) Neutrophils (%) (Auto) 64 % (31-73) Lymphocytes (%) (Auto) 18 % (24-48) Monocytes (%) (Auto) 16 % (0-9) Eosinophils (%) (Auto) 1 % (0-3) Basophils (%) (Auto) 0 % (0-3) Neutrophils # (Auto) 1.4 x10^3uL (1.8-7.7) Lymphocytes # (Auto) 0.4 x10^3/uL (1.0-4.8) Monocytes # (Auto) 0.4 x10^3/uL (0.0-1.1) Eosinophils # (Auto) 0.0 x10^3/uL (0.0-0.7) Basophils # (Auto) 0.0 x10^3/uL (0.0-0.2) Sodium Level 139 mmol/L (136-145) Potassium Level 3.6 mmol/L (3.5-5.1) Chloride Level 103 mmol/L (98-107) Carbon Dioxide Level 30 mmol/L (21-32) Anion Gap 6 (6-14) Blood Urea Nitrogen 15 mg/dL (8-26) Creatinine 1.1 mg/dL (0.7-1.3) Estimated GFR (Cockcroft-Gault) 66.0 Glucose Level 161 mg/dL (70-99) Calcium Level 8.1 mg/dL (8.5-10.1) Microbiology 07/31/17 Blood Culture - Preliminary, Resulted NO GROWTH AFTER 1 DAY Medications Current Medications Albuterol/ Ipratropium (Duoneb) 3 ml RTQID NEB Last administered on 08/02/17 07:07; Start 08/01/17 at 12:00 Colestipol HCl (Colestid) 1 gm TID PO Last administered on 08/02/17 08:35; Start 08/01/17 at 14:00 Gabapentin (Neurontin) 100 mg HS PO Last administered on 08/01/17 21:20; Start 08/01/17 at 21:00 Methadone HCl (Dolophine) 5 mg BID PO ; Start 08/01/17 at 21:00; Stop at 21:00; Status DC Montelukast Sodium (Singulair) 10 mg HS PO Last administered on 08/01/17 21: 20; Start 08/01/17 at 21:00 Vitals/I & O Vital Sign - Last 24 Hours 08/01/17 08/01/17 08/01/17 08/01/17 11:54 13:04 15:00 15:28 Temp 98.0 98.0 Pulse 89 90 Resp 20 B/P (MAP) 125/55 (78) 143/57 (85) Pulse Ox 97 95 97 O2 Delivery Nasal Cannula Nasal Cannula Nasal Cannula O2 Flow Rate 2.0 3.0 2.0 08/01/17 08/01/17 08/01/17 08/01/17 15:41 18:05 19:10 20:00 Temp 98.1 98.1 Pulse 88 Resp 20 B/P (MAP) 132/54 (80) Pulse Ox 97 97 100 O2 Delivery Nasal Cannula Nasal Cannula Nasal Cannula Nasal Cannula O2 Flow Rate 2.0 2.0 3.0 3.0 08/01/17 08/01/17 08/01/17 08/02/17 20:22 21:26 23:10 03:10 Temp 97.7 97.5 97.7 97.5 Pulse 88 78 82 Resp 20 20 B/P (MAP) 132/54 123/61 (81) 143/62 (89) Pulse Ox 97 100 100 O2 Delivery Nasal Cannula Nasal Cannula Nasal Cannula O2 Flow Rate 2.0 3.0 3.0 08/02/17 08/02/17 08/02/17 08/02/17 07:00 07:08 08:05 11:03 Temp 97.9 98.1 97.9 98.1 Pulse 87 83 Resp 20 18 B/P (MAP) 122/57 (78) 131/77 (95) Pulse Ox 99 100 99 O2 Delivery Nasal Cannula Nasal Cannula Nasal Cannula Nasal Cannula O2 Flow Rate 3.0 2.0 3.0 3.0 Intake and Output 08/01/17 08/01/17 08/02/17 15:00 23:00 07:00 Intake Total 480 ml Output Total 450 ml 1100 ml Balance 30 ml -1100 ml RACHELE TAVERAS MD Aug 02, 2017 11:54
--- NOTE | 2017-08-12 15:25 | PDOC3 ---
IM DISCHARGE SUMMARY Date of Admission Date of Admission Date of Admission: Jul 31, 2017 at 18:28 Date of Discharge Date of Discharge 08/02/17 Primary Diagnosis Primary Diagnosis IMPRESSION: 1. Influenzae A no sepsis 2. Acute bronchitis 3. acute on LBP LS with additional body aches 4. anxiety with panic attacks 5. HTN 6. h/o rectal cancer with chronic radiation proctitis/diarrhea 7. 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 depression 9. chronic pain management LBP/cervical pain 10. OA generalized 11.AECOPD POA 12. h/o PVD 13. h/o SVT 14. AFib h/o no anticoagulation 15. CKD II no ARF OMAR 16. chronic immunosuppression secondary to medication/liver transplant 17. thrombocytopenia secondary to liver disease Problems: Consults Consults Ravinder Fatima MD Procedures Procedures None Labs Labs See EMR Brief hospital course Brief hospital course This 72 year old [place] male who presented with flu symptoms was admitted. The following is a summary of his treatment: 08/02/17 d/c home today on Tamiflu. f/u office in 1 week. influenzae A - tamiflu - ID consult due to immunosuppression - continue tamiflu , no antibiotics needed. AB/AE COPD - nebulizer - mucinex - medrol dose charly a/c pain - h/o narcotic abuse with <6 month detox - tylenol and MS 2mg IV q4 hr - titrate MS off over the next few days HTN - continue home meds h/o liver transplant - continue tacrolimus CKD II- monitor chronic diarrhea - resume chronic meds 08/01/17 influenzae A - tamiflu - ID consult due to immunosuppression AB/AE COPD - nebulizer - mucinex - medrol dose charly a/c pain - h/o narcotic abuse with <6 month detox - tylenol and MS 2mg IV q4 hr - titrate MS off over the next few days HTN - continue home meds h/o liver transplant - continue tacrolimus CKD II- monitor chronic diarrhea - resume chronic meds For more details regarding the past history, family history, social history, surgical history and other details, please refer to History and Physical. He is discharged home. Please see the discharge orders. Medications Medications reviewed and reconciled for discharge. Allergy Allergies Coded Allergies Type Severity Reaction Last Updated Verified Iodinated Contrast- Oral and IV Dye Allergy Intermediate 04/20/16 Yes testosterone Allergy Intermediate 04/20/[address] Soliz in one week DISPOSITION: Home Comments Discharge Management - 35 minutes. For other details please refer to discharge instructions GUY FLEMING GYNECOLOGICAL ASSISTANT Aug 12, 2017 15:25
== END 2017-08-02 11:57 | disposition home or self-care (01) | DRG 194 ==
LOC: ER 16:06 → 6 SOUTH 18:28
PROVIDERS: ADMIT Internal Medicine; ATTEND Internal Medicine
DX: J10.1 Influenza due to other identified influenza virus with other respiratory manifestations (principal); Z94.4 Liver transplant status; J20.9 Acute bronchitis, unspecified; K74.60 Unspecified cirrhosis of liver; J44.0 Chronic obstructive pulmonary disease with (acute) lower respiratory infection; J44.1 Chronic obstructive pulmonary disease with (acute) exacerbation; E78.00 Pure hypercholesterolemia, unspecified; Z88.8 Allergy status to other drugs, medicaments and biological substances; N18.2 Chronic kidney disease, stage 2 (mild); K21.9 Gastro-esophageal reflux disease without esophagitis; M81.0 Age-related osteoporosis without current pathological fracture; I12.9 Hypertensive chronic kidney disease with stage 1 through stage 4 chronic kidney disease, or unspecified chronic kidney disease; F41.0 Panic disorder [episodic paroxysmal anxiety]; B19.20 Unspecified viral hepatitis C without hepatic coma; F32.9 Major depressive disorder, single episode, unspecified; G89.29 Other chronic pain; M19.90 Unspecified osteoarthritis, unspecified site; M54.2 Cervicalgia; Z85.048 Personal history of other malignant neoplasm of rectum, rectosigmoid junction, and anus; Z82.49 Family history of ischemic heart disease and other diseases of the circulatory system; Z85.05 Personal history of malignant neoplasm of liver; Z92.3 Personal history of irradiation; Z87.891 Personal history of nicotine dependence; Z92.21 Personal history of antineoplastic chemotherapy; M54.5 Low back pain
CPT/HCPCS: 36415; 71010; 80048; 80053; 81001; 83605; 84484; 85025; 87040; 87804; 93005; 94250; 94640; 94760; 96365; 96366; 96375; J1170; J2270; J2405; J2543; J3370; J7030; J7507; J7512; J7620; 99285-25

== ENCOUNTER 2017-10-05 11:19 | Emergency (ER) | payer MEDICARE, OTHER ==
[2017-10-05 12:19] LABS: BILIRUBIN,URINE NEGATIVE (NEG); CLARITY,URINE TURBID; COLOR,URINE RED; GLUCOSE,URINE NEGATIVE (NEG); NITRITE,URINE NEGATIVE (NEG); PH,URINE 6.5; PROTEIN,URINE >=300 mg/dL (NEG-TRACE); UROBILINOGEN,URINE 0.2 mg/dL (0.2 mg/dL)
[2017-10-05 12:43] LABS: BACTERIA,URINE 0 /HPF (0-FEW); RBC,URINE TNTC /HPF (0-2); WBC,URINE TNTC /HPF (0-4)
[2017-10-05] MEDS: oxyCODONE/APAP 5/325 1 TAB TABLET PO (13:24)
[2017-10-05] MEDS: PHENAZOPYRIDINE 200 MG TABLET. PO (13:24)
[2017-10-05] MEDS: IBUPROFEN 800 MG TABLET. PO (13:25)
[2017-10-05] MEDS: cefTRIAXone IM 1 GM VIAL IM (13:25)
== END 2017-10-05 13:42 | disposition home or self-care (01) ==
LOC: ER 11:19
DX: N39.0 Urinary tract infection, site not specified (principal); G89.29 Other chronic pain; E78.00 Pure hypercholesterolemia, unspecified; K21.9 Gastro-esophageal reflux disease without esophagitis; F12.10 Cannabis abuse, uncomplicated; Z94.4 Liver transplant status; Z85.038 Personal history of other malignant neoplasm of large intestine; Z88.8 Allergy status to other drugs, medicaments and biological substances; Z91.041 Radiographic dye allergy status
CPT/HCPCS: 81001; 87086; 96372; 99284-25; J0696

== ENCOUNTER 2018-08-26 02:11 | Inpatient (IN) | payer OTHER ==
[~2018-08-26] VITALS: Ht 172.7 cm; Wt 78.5 kg
[~2018-08-26 02:11] MED LIST changes: +CHOL500016 PO; -IPRA3AMP NEB; +IPRA3AMP29 NEB; +LEVO50TA5 PO; +MAGN400T3 PO; +MULT-690 PO; +OSEL75CA PO; +OXYC5CAP PO; +OXYC5TAB4 PO; -OXYC5TAB95 PO; +PHEN100T82 PO; +TRAZ-85 PO; -TRAZ50TA15 PO
--- NOTE | 2018-08-26 02:51 | EKG ---
[facility] [address] [place] [address] Test Date: 2018-08-26 Test Time: 02:40:34 Pat Name: MARCIO MANRIQUE Department: Room: Gender: M Hearing Aid Specialist: : 1945 Requested By: SHELBY GARCIA Order Number: [id number] Reading MD: Measurements Intervals [place] Rate: 84 P: DE: QRS: -94 QRSD: 112 T: 32 QT: 354 QTc: 421 Interpretive Statements IRREGULAR RHYTHM, NO P-WAVE FOUND LEFT ANTERIOR FASCICULAR BLOCK INCOMPLETE RIGHT BUNDLE BRANCH BLOCK QRS(T) CONTOUR ABNORMALITY CONSIDER ANTEROLATERAL MYOCARDIAL DAMAGE ABNORMAL ECG RI6.01 No previous ECG available for comparison
[2018-08-26 02:57] LABS: BASO % 1 % (0-3); EOS # 0.1 x10^3/uL (0.0-0.7); EOS % 2 % (0-3); HEMOGLOBIN 11.6 g/dL (13.0-17.5); LYMPH # 1.1 x10^3/uL (1.0-4.8); LYMPH % 19 % (24-48); MEAN CORPUSCULAR HEMOGLOBIN 31 pg (25-35); MEAN CORPUSCULAR HGB CONC 34 g/dL (31-37); MEAN CORPUSCULAR VOLUME 91 fL (79-100); MONO # 0.5 x10^3/uL (0.0-1.1); MONO % 9 % (0-9); NEUT # 4.2 x10^3uL (1.8-7.7); NEUT % 70 % (31-73); PLATELET COUNT 138 x10^3/uL (140-400); RED BLOOD COUNT 3.74 x10^6/uL (4.30-5.70); RED CELL DISTRIBUTION WIDTH 13.2 % (11.5-14.5)
[2018-08-26] MEDS ORDERED: IPRATRPIUM/ALBUTEROL 0.5/2.5MG 3 ML NEBU. NEB ONE (03:00)
[2018-08-26] MEDS ORDERED: KETOROLAC 30 MG/ML VIAL. ONE (03:05)
[2018-08-26 03:18] LABS: INFLUENZA A PATIENT NEGATIVE (NEGATIVE); INFLUENZA B PATIENT NEGATIVE (NEGATIVE)
[2018-08-26 03:22] LABS: CALCIUM 9.3 mg/dL (8.5-10.1); CREATININE 1.3 mg/dL (0.7-1.3); GFR 54.3; POTASSIUM 3.8 mmol/L (3.5-5.1)
--- NOTE | 2018-08-26 03:22 | PHYS DOC ---
Past Medical History Past Medical History: Anxiety, Cancer, GERD, High Cholesterol, Hypotension, Hepatitis, Other Additional Past Medical Histor: chronic back pain; colon ca-CHEMO & RADIATION; former hep C,PANIC ATTACKS Past Surgical History: Cholecystectomy, Tonsillectomy, Other Additional Past Surgical Histo: Liver transplant,PORT-A-CATH -removal Alcohol Use: None Drug Use: Marijuana Adult General Chief Complaint Chief Complaint: SHORTNESS OF BREATH HPI HPI Patient is a 73 year old male who presents with shortness of breath which has been intermittent today and worse this evening when trying to sleep. Patient reports difficulty taking deep breath. He wears 3 L of supplemental oxygen at night as needed. Patient reports occasional dry cough. He denies fever chills, nausea vomiting or sweats. Denies increased leg pain or swelling. He reports chronic neck, back and chest pain reproduces with position change and movement. No other acute symptoms or complaints. No history of DVT or PE. Denies history of COPD, asthma, CAD or congestive heart failure. The was hospitalized over night one week ago at [facility] for viral respiratory tract infection which he states since improved. On EMS arrival, patient's O2 saturation was 98% on room air. The patient was placed on oxygen for his comfort during transfer to the ED.[] Review of Systems Review of Systems Review symptoms as per history of present illness. All other review symptoms are negative. All other systems were reviewed and found to be within normal limits, except as documented in this note. Current Medications Current Medications Current Medications Medications (Trade) Dose Ordered Sig/Sarahy Start Time Stop Time Status Last Admin Dose Admin Albuterol/ Ipratropium (Duoneb) 3 ml RTQID 08/26/18 08:00 08/27/18 07:59 UNV Furosemide (Lasix) 20 mg BID92 08/26/18 09:00 UNV Ketorolac Tromethamine (Toradol 30mg Vial) 30 mg STK-MED ONCE 08/26/18 03:05 08/26/18 03:07 DC Allergies Allergies Allergies Coded Allergies Type Severity Reaction Last Updated Verified Iodinated Contrast- Oral and IV Dye Allergy Intermediate 04/20/16 Yes testosterone Allergy Intermediate 04/20/16 Yes Physical Exam Physical Exam Constitutional: Well developed, well nourished, no acute distress. [] HENT: Normocephalic, atraumatic, bilateral external ears normal, oropharynx moist, no oral exudates, nose normal. [] Eyes: PERRLA, EOMI, conjunctiva normal, no discharge. [] Neck: Normal range of motion, no tenderness, supple, no stridor. [] Cardiovascular:Heart rate regular rhythm, no murmur, Homans sign, trace peripheral edema[] Lungs & Thorax: Bilateral breath sounds clear to auscultation, mildly diminished breath sounds left lung base. [] Abdomen: Bowel sounds normal, soft, no tenderness. [] Skin: Warm, dry, no erythema, no rash. [] Back: Diffuse neck back and shoulder pain. [] Extremities: No tenderness, no cyanosis, no clubbing, ROM intact, no edema. [] Neurologic: Alert and oriented X 3, normal motor function, normal sensory function, no focal deficits noted. [] Psychologic: Affect normal, judgement normal, mood pleasant. [] Current Patient Data Vital Signs Vital Signs Date Time Temp Pulse Resp B/P (MAP) Pulse Ox O2 Delivery O2 Flow Rate FiO2 08/26/18 03:04 96 Room Air 08/26/18 02:11 98.7 83 18 102/49 (66) 98.7 Lab Values Laboratory Tests Test 08/26/18 02:40 White Blood Count 6.0 x10^3/uL (4.0-11.0) Red Blood Count 3.74 x10^6/uL (4.30-5.70) L Hemoglobin 11.6 g/dL (13.0-17.5) L Hematocrit 34.0 % (39.0-53.0) L Mean Corpuscular Volume 91 fL (79-100) Mean Corpuscular Hemoglobin 31 pg (25-35) Mean Corpuscular Hemoglobin Concent 34 g/dL (31-37) Red Cell Distribution Width 13.2 % (11.5-14.5) Platelet Count 138 x10^3/uL (140-400) L Neutrophils (%) (Auto) 70 % (31-73) Lymphocytes (%) (Auto) 19 % (24-48) L Monocytes (%) (Auto) 9 % (0-9) Eosinophils (%) (Auto) 2 % (0-3) Basophils (%) (Auto) 1 % (0-3) Neutrophils # (Auto) 4.2 x10^3uL (1.8-7.7) Lymphocytes # (Auto) 1.1 x10^3/uL (1.0-4.8) Monocytes # (Auto) 0.5 x10^3/uL (0.0-1.1) Eosinophils # (Auto) 0.1 x10^3/uL (0.0-0.7) Basophils # (Auto) 0.0 x10^3/uL (0.0-0.2) D-Dimer (Ruth) 0.57 ug/mlFEU (0.00-0.50) H Sodium Level 136 mmol/L (136-145) Potassium Level 3.8 mmol/L (3.5-5.1) Chloride Level 98 mmol/L (98-107) Carbon Dioxide Level 32 mmol/L (21-32) Anion Gap 6 (6-14) Blood Urea Nitrogen 26 mg/dL (8-26) Creatinine 1.3 mg/dL (0.7-1.3) Estimated GFR (Cockcroft-Gault) 54.3 BUN/Creatinine Ratio 20 (6-20) Glucose Level 181 mg/dL (70-99) H Calcium Level 9.3 mg/dL (8.5-10.1) Total Bilirubin 0.7 mg/dL (0.2-1.0) Aspartate Amino Transferase (AST) 27 U/L (15-37) Alanine Aminotransferase (ALT) 45 U/L (16-63) Alkaline Phosphatase 103 U/L (46-116) Troponin I Quantitative < 0.017 ng/mL (0.000-0.055) QR-Pyc-D-Type Natriuretic Peptide 619 pg/mL (0-124) H Total Protein 8.2 g/dL (6.4-8.2) Albumin 3.2 g/dL (3.4-5.0) L Albumin/Globulin Ratio 0.6 (1.0-1.7) L Influenza Type A Antigen Negative (NEGATIVE) Influenza Type B Antigen Negative (NEGATIVE) Laboratory Tests 08/26/18 02:40 Laboratory Tests 08/26/18 02:40 EKG EKG [EKG: Normal sinus rhythm, rate 84, no acute ST-T wave changes. Left anterior fascicular block present. QTC 421.] Radiology/Procedures Radiology/Procedures [Chest x-ray: Chronic elevation of left hemidiaphragm.] Course & Med Decision Making Course & Med Decision Making Pertinent Labs and Imaging studies reviewed. (See chart for details) [Patient with dyspnea likely related to congestive heart failure. This appears to be a new diagnosis patient. IV Lasix and duoneb given. Patient sleeping in the emergency department maintaining O2 saturation greater than 92%. Will admit to the hospitalist service with anticipated cardiology consult.] Dragon Disclaimer Dragon Disclaimer This electronic medical record was generated, in whole or in part, using a voice recognition dictation system. Departure Departure Referrals: ELENI NIEVES MD (PCP) SHELBY GARCIA DO Aug 26, 2018 03:22
[2018-08-26 03:28] LABS: ALBUMIN 3.2 g/dL (3.4-5.0); ALBUMIN/GLOBULIN RATIO 0.6 (1.0-1.7); TOTAL BILIRUBIN 0.7 mg/dL (0.2-1.0); TOTAL PROTEIN 8.2 g/dL (6.4-8.2)
[2018-08-26] MEDS ORDERED: KETOROLAC 30 MG/ML VIAL. IV ONE (03:30)
[2018-08-26] MEDS ORDERED: HYDROcodon/IBUPROFEN 7.5/200MG 1 TAB TABLET PO PRN (03:45)
[2018-08-26] MEDS ORDERED: FUROSEMIDE 40 MG/4 ML VIAL. IVP ONE (04:00)
[2018-08-26 04:57] VITALS: BP 103/58
[2018-08-26] MEDS: traMADol 50 MG TABLET PO PRN ×2 (05:24→11:52)
[2018-08-26] MEDS: IPRATRPIUM/ALBUTEROL 0.5/2.5MG 3 ML NEBU. NEB SCH ×4 (06:00→19:17)
[2018-08-26 07:00] VITALS: BP 144/65
--- NOTE | 2018-08-26 08:06 | RAD ---
CHEST AP ONLY Clinical indications: short of air COMPARISON: July 31, 2017. Findings: Severe elevation of the left hemidiaphragm is again evident. There is associated chronic left lung base atelectasis. There is mild gaseous distention of the stomach underneath the elevated left hemidiaphragm. Otherwise no new lung infiltrate or pulmonary edema or pleural effusion or pneumothorax is seen. The heart size and pulmonary vasculature and mediastinum and both dory are stable. IMPRESSION: No new radiographic abnormality. Electronically signed by: Holger Kahn MD (08/26/2018 8:01 AM) [facility]
[2018-08-26 08:27] LABS: BARBITURATES NEG (NEG); BENZODIAZEPINES NEG (NEG); CANNABINOIDS POS (NEG); COCAINE NEG (NEG); METHADONE NEG (NEG); OPIATES NEG (NEG); PHENCYCLIDINE NEG (NEG)
[2018-08-26 08:40] LABS: AMPHETAMINE/METHAMPHETAMINE NEG (NEG)
[2018-08-26] MEDS ORDERED: FUROSEMIDE 20 MG/2 ML VIAL. IVP SCH (09:00)
[2018-08-26] MEDS ORDERED: MAGNESIUM SULFATE 2GM 50 ML IV ONE ×2 (09:00→15:00)
[2018-08-26] MEDS ORDERED: TACR1CAP4 PO (09:56)
[2018-08-26] MEDS ORDERED: LEVO75TA5 PO (09:56)
[2018-08-26] MEDS ORDERED: ATOR10TA60 PO (09:56)
--- NOTE | 2018-08-26 10:36 | RAD ---
NUCLEAR MEDICINE VENTILATION PERFUSION SCAN History: Chest pain, elevated d-dimer, dyspnea x3 days. Comparison: AP chest, same day. Technique: Perfusion portion performed after intravenous administration of 5.5 mCi Technetium 99m MAA. Multiple projection planar images of the lungs were obtained. Findings: Patient refused ventilation portion of the exam. There is a large defect of the lower half of the left lung due to the severe elevation of the left hemidiaphragm. There is homogeneous perfusion in the right lung and in the left upper lung. IMPRESSION: Perfusion only imaging. An unexplained segmental perfusion defect is not identified to raise possibility of pulmonary embolus. Electronically signed by: Newton Larkin MD (08/26/2018 10:33 AM) [id number]
--- NOTE | 2018-08-26 10:58 | PDOC ---
Provider Note Provider Note Patient seen. History and Physical dictated. See dictation# [id number] ELENI NIEVES MD Aug 26, 2018 10:58
[2018-08-26 11:00] VITALS: BP 144/67
--- NOTE | 2018-08-26 11:26 | HP ---
ADMIT DATE: 08/26/2018 HISTORY OF PRESENT ILLNESS: This 73-year-old male presented to [facility] Emergency Room with chest pain that started yesterday morning. Pain is mainly on the left side of the chest, both anteriorly and posteriorly, is not radiating to the left upper extremity. The patient also has had some dyspnea. He denies any fever or chills. He denies any significant cough or congestion. Last week, he was admitted to [facility] for viral bronchitis. The patient denies any heartburn, nausea, vomiting, diarrhea. He denies any palpitations or dizziness. Because of the persistent chest pains, the patient came to the Emergency Room. In the Emergency Room, the patient was evaluated. His cardiac enzymes were within normal limits. BNP was 619. Magnesium level was 1.4. Troponins are less than 0.017. Sodium 136, potassium 3.8, BUN 26, creatinine 1.3, glucose was 181, albumin 3.2. WBC count 6, hemoglobin 11.6. D-dimer is slightly elevated at 0.57. Urine drug screen shows marijuana. Chest x-ray shows elevated left hemidiaphragm, no new radiographic abnormalities. The patient is getting a nuclear medicine scan. Because of the chest pains, the patient was admitted for further evaluation and management. REVIEW OF SYSTEMS: As noted in the history of present illness. The patient denies any nausea, vomiting, diarrhea, bleeding, fever or chills. Other systems reviewed and are negative. PAST MEDICAL HISTORY: The patient has been admitted to this institution several times in the past. He now mainly goes to [facility]. He has a history of low back pain, chronic pain, history of narcotic dependence and addiction and [facility] finally weaned him off pain medications. 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 History of atrial fibrillation, hypertension, peripheral vascular disease, supraventricular tachycardia, COPD, pneumonia, hemorrhoids, anemia, low back pain, chronic degenerative disk disease with chronic renal insufficiency, osteoporosis. PAST SURGICAL HISTORY: The patient had a liver transplant in 2002, on Prograf. FAMILY HISTORY: Positive for heart disease. Mother and father had heart disease. SOCIAL HISTORY: Remote history of smoking. No history of alcoholism, history of narcotic abuse with detoxification in 11/2016, has been using marijuana. ALLERGIES: The patient is ALLERGIC to IODINATED CONTRAST, ORAL AND IV DYE, TESTOSTERONE. MEDICATIONS: Have been reviewed, but not able to reconcile initially as we did not have the proper list from the pharmacy. OBJECTIVE: VITAL SIGNS: Stable. GENERAL: The patient is an elderly male who is alert, oriented and not in acute distress. VITAL SIGNS: Temperature 97.7, pulse 99 per minute, respirations 18 per minute, blood pressure 144/65 mmHg. EYES: Pupils equal, reacting to light. Conjunctivae pale. Sclerae muddy. HEENT: Unremarkable except for mild congestion of throat. NECK: Supple. JVP normal. No thyromegaly. Trachea midline. CHEST: No significant tenderness anteriorly. No pain, full range of motion with left shoulder or left upper extremity. LUNGS: Decreased breath sounds at bases. CARDIOVASCULAR: S1, S2 regular. ABDOMEN: Soft, nontender, no guarding, no rigidity. Liver, spleen, kidney not palpable. Bowel sounds present. EXTREMITIES: No edema. CENTRAL NERVOUS SYSTEM: Alert and oriented, slightly anxious. LABORATORY FINDINGS: As noted earlier. FINAL DIAGNOSES: 1. Chest pain, etiology not clear. The patient recently had viral bronchitis and was treated at [facility]. 2. History of chronic low back pain. 3. History of anxiety with panic attacks. 4. Hypertension. 5. History of rectal cancer with chronic radiation proctitis and diarrhea. 6. 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 7. Gastroesophageal reflux disease. 8. Depression. 9. Osteoarthritis. 10. History of chronic obstructive pulmonary disease. 11. History of peripheral vascular disease. 12. History of supraventricular tachycardia. 13. History of atrial fibrillation, no anticoagulation. 14. Chronic kidney disease 2. 15. Chronic immunosuppression secondary to medications/liver transplant. 16. Thrombocytopenia secondary to liver disease. PLAN: Consult Dr. Li for Cardiology evaluation and management. Consult Dr. Garcia for his dyspnea, for pulmonary evaluation and management. For details, please refer the orders. ELENI NIEVES MD DR: EDWARD/silvina JOB#: [id number] / [id number]
--- NOTE | 2018-08-26 12:26 | CONS ---
DATE OF CONSULTATION: ATTENDING PHYSICIAN: Dr. Eleni Soliz. REASON FOR CONSULTATION: Chest pain. HISTORY OF PRESENT ILLNESS: The patient is a 73-year-old male who has history of liver transplant and being followed by . The patient had remote history of DVT, but no history of pulmonary embolism. He was brought into the Emergency Room with complaint of chest pain, which was started yesterday morning and then went to the left back. The patient states that he had some shortness of breath prior to the chest pain. No cough, no fever, no chills. He has mild lower extremity edema. He has been followed at for his post-liver transplant. The patient states he was also hospitalized at about a week ago for flu-like symptoms. Denies any headaches, no nausea, no vomiting, no diarrhea, no dysuria. No focal weakness. No rash. He has chronic lower extremity edema. He does not smoke cigarettes, but smokes marijuana. His chest x-ray revealed markedly elevated left hemidiaphragm, which was similar in 2016 as well and likely related to paralyzed diaphragm. His perfusion scan was also performed as he refused ventilation part. The patient had a large defect of the lower half of the left lung due to the severe elevation of the diaphragm. There was homogeneous perfusion on the right and left upper lung. There were no unexplained perfusion defects seen. PAST MEDICAL HISTORY: Significant for history of low back pain, chronic pain, history of narcotic dependence and addiction. 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 History of liver transplant due to cirrhosis of liver from hep C. History of atrial fibrillation, hypertension, peripheral vascular disease, SVT, hemorrhoids, pneumonia, DJD and chronic renal insufficiency. PAST SURGICAL HISTORY: Liver transplant in 2002, on Prograf. FAMILY HISTORY: Positive for heart disease. SOCIAL HISTORY: Nonsmoker, but smoked marijuana. ALLERGIES: IV DYE. MEDICATIONS: All reviewed as listed in the MRAD including DuoNeb and Lasix. REVIEW OF SYSTEMS: Twelve-point system obtained. Pertinent positives discussed in my history of present illness, otherwise noncontributory. All systems that were negative were reviewed as well. PHYSICAL EXAMINATION: GENERAL: He is in no obvious respiratory distress. VITAL SIGNS: Room air pulse ox 94%, afebrile. HEENT: Sclerae nonicteric. NECK: Supple. LUNGS: Clear. CARDIOVASCULAR: Regular rate and rhythm. ABDOMEN: Soft. EXTREMITIES: With 1+ pitting edema bilaterally. LABORATORY DATA: Reviewed. White cell count 6.0, hemoglobin 11.6 and platelets are 138. Magnesium 1.4. D-dimer 0.5. White cell count 6.0, hemoglobin 11.6 and platelets are 138. IMPRESSION: 1. Left-sided chest pain with radiation to the back. The patient states that he had this kind of pain before. The patient is currently on room air. His perfusion lung scan does not show any convincing evidence of thromboembolic disease. Consider cardiac evaluation. 2. No significant history of tobacco use. 3. History of marijuana abuse. 4. 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 The diaphragm is markedly elevated on chest x-ray. 5. History of liver transplant due to cirrhosis related to hepatitis C. 6. History of atrial fibrillation. No anticoagulation. RECOMMENDATIONS: 1. From a pulmonary standpoint, there is no evidence of thromboembolic disease, and I do not have any other recommendations. 2. Follow cardiology recommendations. 3. P.r.n. oxygen. 4. P.r.n. bronchodilators. 5. Could be discharged in the next 24 hours from a pulmonary standpoint. DINAH MILLIGAN MD DR: BETH/silvina JOB#: [id number] / [id number] ELENI Trotter
--- NOTE | 2018-08-26 13:07 | PDOC2 ---
YIFAN WAN BURNER OPERATOR 08/26/18 1307: CARDIAC CONSULT DATE OF CONSULT Date of Consult DATE: 08/26/18 TIME: 12:59 REASON FOR CONSULT Reason for Consult: CHF exacerbation REFERRING PHYSICIAN Referring Physician: Carlos Alberto SOURCE Source: Chart review, Patient HISTORY OF PRESENT ILLNESS HISTORY OF PRESENT ILLNESS This is a pleasant 73 yo male admitted for complains of sub left shoulder pain. This is sharp like stabbing and started yesterday. This radiated to left chest. He was not SOA per se but was not able to take a deep breath due to the pain. No exertional CP or BETTS. No palpitations. No nausea or vomiting. No abdominal pain. Reports no falls, injury or recent MVA. Denies any orthopnea or PND. His leg edema is chronic. He is compliant with his medications. He had flus symptoms over 2 weeks ago and stayed at for 2 days but he was not sure what was his diagnosis at that time. No prior CAD, VTE but positive for liver transplant and colon and liver CA in the past requiring chemo and radiation. Denies any intractable coughing or heartburn. PAST MEDICAL HISTORY Past Medical History Cardiovascular: AFIB (off anticoagulation ), HTN, Other (h/o PVD, SVT) Pulmonary: COPD, Pneumonia (h/o) CENTRAL NERVOUS SYSTEM: Other GI: Hemorrhoids (external ) Heme/Onc: Anemia NOS, colon CA and liver CA with chemo and radiation Hepatobiliary: Hep C Psych: Anxiety, Depression, Panic, opioid abuse with detox Musculoskeletal: low back pain (chronic DDD, DJD with radiculitis LS, ), No pain, Other (cervical/thoracic DDD DJD ) Renal/: Chronic renal insuff, Other (ED ) Endocrine: Osteoporosis, hypothyroidism PAST SURGICAL HISTORY Past Surgical History: Other (liver transplant 2003 on prograf) FAMILY HISTORY Family History: Heart Disease SOCIAL HISTORY Smoke: No ALCOHOL: none Drugs: None Lives: with Family CURRENT MEDICATIONS CURRENT MEDICATIONS Current Medications Medications (Trade) Dose Ordered Sig/Sarahy Route PRN Reason Start Time Stop Time Status Last Admin Dose Admin Albuterol/ Ipratropium (Duoneb) 3 ml 1X ONCE NEB 08/26/18 03:00 08/26/18 03:01 DC 08/26/18 03:05 Ketorolac Tromethamine (Toradol 30mg Vial) 30 mg 1X ONCE IV 08/26/18 03:30 08/26/18 03:31 DC 08/26/18 03:10 Furosemide (Lasix) 40 mg 1X ONCE IVP 08/26/18 04:00 08/26/18 04:01 DC 08/26/18 03:52 Albuterol/ Ipratropium (Duoneb) 3 ml RTQID NEB 08/26/18 08:00 08/27/18 07:59 08/26/18 11:15 Furosemide (Lasix) 20 mg BID92 IVP 08/26/18 09:00 08/26/18 11:56 Tramadol HCl (Ultram) 50 mg PRN Q6HRS PRN PO MODERATE PAIN 08/26/18 05:15 08/26/18 11:52 Magnesium Sulfate 50 ml @ 25 mls/hr 1X ONCE IV 08/26/18 09:00 08/26/18 10:59 DC 08/26/18 11:57 ALLERGIES ALLERGIES: Coded Allergies: Iodinated Contrast- Oral and IV Dye (Verified Allergy, Intermediate, ) testosterone (Verified Allergy, Intermediate, 04/20/16) ROS Review of System 14 point ROS evaluated with pertinent positives noted per HPI PHYSICAL EXAM General: Alert, Oriented X3, Cooperative, No acute distress HEENT: Atraumatic, Mucous membr. moist/pink Lungs: Normal air movement, Other (left basilar crackles) Heart: Regular rate (ST), Normal S1, Normal S2, Other (2/6 systolic murmur to LLS border) Abdomen: Soft, No tenderness Extremities: No cyanosis, Other (2+ bilateral LE pitting edema) Skin: No breakdown Neuro: Normal speech, Sensation intact Psych/Mental Status: Mental status NL, Mood NL MUSCULOSKELETAL: Osteoarthritic changes both hands VITALS VITALS Vital Signs Date Time Temp Pulse Resp B/P (MAP) Pulse Ox O2 Delivery O2 Flow Rate FiO2 08/26/18 11:52 Room Air 08/26/18 11:00 98.0 99 16 144/67 (92) 96 98.0 LABS Lab: Laboratory Tests Test 08/26/18 02:40 08/26/18 06:45 08/26/18 08:10 08/26/18 09:45 White Blood Count 6.0 x10^3/uL (4.0-11.0) Red Blood Count 3.74 x10^6/uL (4.30-5.70) Hemoglobin 11.6 g/dL (13.0-17.5) Hematocrit 34.0 % (39.0-53.0) Mean Corpuscular Volume 91 fL (79-100) Mean Corpuscular Hemoglobin 31 pg (25-35) Mean Corpuscular Hemoglobin Concent 34 g/dL (31-37) Red Cell Distribution Width 13.2 % (11.5-14.5) Platelet Count 138 x10^3/uL (140-400) Neutrophils (%) (Auto) 70 % (31-73) Lymphocytes (%) (Auto) 19 % (24-48) Monocytes (%) (Auto) 9 % (0-9) Eosinophils (%) (Auto) 2 % (0-3) Basophils (%) (Auto) 1 % (0-3) Neutrophils # (Auto) 4.2 x10^3uL (1.8-7.7) Lymphocytes # (Auto) 1.1 x10^3/uL (1.0-4.8) Monocytes # (Auto) 0.5 x10^3/uL (0.0-1.1) Eosinophils # (Auto) 0.1 x10^3/uL (0.0-0.7) Basophils # (Auto) 0.0 x10^3/uL (0.0-0.2) D-Dimer (Ruth) 0.57 ug/mlFEU (0.00-0.50) Sodium Level 136 mmol/L (136-145) Potassium Level 3.8 mmol/L (3.5-5.1) Chloride Level 98 mmol/L (98-107) Carbon Dioxide Level 32 mmol/L (21-32) Anion Gap 6 (6-14) Blood Urea Nitrogen 26 mg/dL (8-26) Creatinine 1.3 mg/dL (0.7-1.3) Estimated GFR (Cockcroft-Gault) 54.3 BUN/Creatinine Ratio 20 (6-20) Glucose Level 181 mg/dL (70-99) Calcium Level 9.3 mg/dL (8.5-10.1) Total Bilirubin 0.7 mg/dL (0.2-1.0) Aspartate Amino Transf (AST/SGOT) 27 U/L (15-37) Alanine Aminotransferase (ALT/SGPT) 45 U/L (16-63) Alkaline Phosphatase 103 U/L (46-116) Troponin I Quantitative < 0.017 ng/mL (0.000-0.055) < 0.017 ng/mL (0.000-0.055) < 0.017 ng/mL (0.000-0.055) SW-Wse-Q-Type Natriuretic Peptide 619 pg/mL (0-124) Total Protein 8.2 g/dL (6.4-8.2) Albumin 3.2 g/dL (3.4-5.0) Albumin/Globulin Ratio 0.6 (1.0-1.7) Influenza Type A Antigen Negative (NEGATIVE) Influenza Type B Antigen Negative (NEGATIVE) Magnesium Level 1.4 mg/dL (1.8-2.4) Urine Opiates Screen Neg (NEG) Urine Methadone Screen Neg (NEG) Urine Barbiturates Neg (NEG) Urine Phencyclidine Screen Neg (NEG) Urine Amphetamine/Methamphetamine Neg (NEG) Urine Benzodiazepines Screen Neg (NEG) Urine Cocaine Screen Neg (NEG) Urine Cannabinoids Screen Pos (NEG) Urine Ethyl Alcohol Neg (NEG) ECHOCARDIOGRAM ECHOCARDIOGRAM <Conclusion> Left ventricle systolic function is normal. The Ejection Fraction is estimated at 60-65%. There is normal LV segmental wall motion. Trace to mild tricuspid regurgitation. The PA pressure was estimated at 33 mmHg. There is no evidence of significant pericardial effusion. DATE: 04/01/16 1352 ASSESSMENT/PLAN ASSESSMENT/PLAN 1. Left shoulder pain: dyspnea is more of inability to take a deep breath due to the pain. V/Q inconclusive with CXR showing elevated left hemidiaphragm ( correlation to pain?). 2. COPD: per pulmonary 3. Suspect chronic diastolic CHF: compensated. 4. PAFIB: SR. EKG with SR first degree AV block with RVH no acute changes. 5. Marijuana use 6. HTN controlled 7. Chronic immunosuppression with prior hx of liver transplant. 8. Chronic leg edema: Prograf likely contributing Recommendations 1. TTE today and note any issue with pericardial effusion. No signs of pericarditis so far. He did have possible viral infection about 2 weeks ago and was at . At this time no acute cardiac symptoms. Presently on sinus tach at 100 and will continue on home dose metoprolol for his PAFIB. Would recommend ASA 81 mg for stroke prevention if ok with PCP. He is hesitant given his liver issues. 2. Consult pulmonary. 3. Recommend to follow up with his direct support professional. 4. Marijuana cessation. May need CT chest if none done recently from 5. LE venous doppler CRUZITO GRANT MD 08/27/18 0814: CARDIAC CONSULT ASSESSMENT/PLAN ASSESSMENT/PLAN Patient seen and examined 08/26/18. Agree with SENIOR INTEGRATION ARCHITECT's assessment and plan. Patient does not have any clinical evidence for congestive heart failure Chronic diastolic heart failure appears well compensated 2-D echo showed normal LV systolic function, diastolic dysfunction without any wall motion abnormalities He has history of paroxysmal atrial fibrillation but is presently in sinus rhythm He is a poor candidate for long-term anticoagulation Thank you for your consultation YIFAN WAN APRN Aug 26, 2018 13:07 CRUZITO GRANT MD Aug 27, 2018 08:14
[2018-08-26] MEDS ORDERED: TACROLIMUS 0.5 MG CAPSULE PO SCH (13:30)
[2018-08-26] MEDS ORDERED: TACR0.5C2 PO (13:50)
[2018-08-26] MEDS ORDERED: TAMSULOSIN 0.4 MG CAP.ER.24H. PO SCH ×2 (14:00→21:00)
[2018-08-26] MEDS: TACROLIMUS 0.5 MG CAPSULE PO SCH ×2 (14:07→20:26)
[2018-08-26] MEDS: METOPROLOL TART IMMED RELEASE 50 MG TABLET. PO SCH ×2 (14:07→20:25)
[2018-08-26 15:00] VITALS: BP 128/64
--- NOTE | 2018-08-26 15:44 | CARD ---
MR#: [id number] Date of Study: 08/26/2018 Ordering Physician: YIFAN WAN, Referring Physician: ELENI NIEVES Tech: Mel Whalen BRIANDA APPROVED REPORT EXAM: Two-dimensional and M-mode echocardiogram with Doppler and color Doppler. Other Information Quality : Fair INDICATION Congestive Heart Failure 2D DIMENSIONS Left Atrium(2D)2.1 (1.6-4.0cm)IVSd1.1 (0.7-1.1cm) Aortic Root(2D)2.1 (2.0-3.7cm)LVDd3.4 (3.9-5.9cm) LVOT Diameter1.8 (1.8-2.4cm)PWd0.7 (0.7-1.1cm) LVDs2.1 (2.5-4.0cm)FS (%) 30.0 % SV33.8 mlLVEF(%)60.0 (>50%) Aortic Valve AoV Peak Josh.114.3cm/sAoV VTI22.7cm AO Peak GR.5.2mmHgLVOT Peak Josh.86.0cm/s LVOT VTI 17.74cmAO Mean GR.3mmHg SLOANE (VMAX)1.56wv8OHH (VTI)1.96cm2 Mitral Valve MV E Qiopouma211.4cm/sMV DECEL FXWX520pw MV A Bnvpttoy578.2cm/sMV WSM80qh E/A Ratio0.8MVA (PHT)5.58cm2 TDI E/Lateral E'31.6E/Medial E'25.7 Tricuspid Valve TR P. Tmqjvxmc035il/sRAP BHKQXXNW6biVg TR Peak Gr.61hpWvTVCU30ckJb Pulmonary Vein S1 Mjdegorb38.0cm/sD2 Grlqcrwi20.6cm/s LEFT VENTRICLE The left ventricle is normal size. There is normal left ventricular wall thickness. The left ventricu lar systolic function is normal. The Ejection Fraction is 55-60%. There is normal LV segmental wall m otion. Transmitral Doppler flow pattern is Grade I-abnormal relaxation pattern. RIGHT VENTRICLE The right ventricle is normal size. The right ventricular systolic function is normal. ATRIA The left atrium size is normal. The right atrium size is normal. The interatrial septum is intact wit h no evidence for an atrial septal defect or patent foramen ovale as noted on 2-D or Doppler imaging. AORTIC VALVE The aortic valve is calcified but opens well. Doppler and Color Flow revealed no significant aortic r egurgitation. There is no significant aortic valvular stenosis. MITRAL VALVE The mitral valve is calcified but opens well. Mitral annular calcification is mild. There is no evide nce of mitral valve prolapse. There is no mitral valve stenosis. Doppler and Color Flow revealed no m itral valve regurgitation noted. TRICUSPID VALVE The tricuspid valve is normal in structure and function. Doppler and Color Flow revealed trace tricus pid regurgitation. The PA pressure was estimated at 25 mmHg. There is no tricuspid valve stenosis. PULMONIC VALVE The pulmonic valve is not well visualized. Doppler and Color Flow revealed no pulmonic valvular regur gitation. There is no pulmonic valvular stenosis. GREAT VESSELS The aortic root is normal in size. The ascending aorta is normal in size. The IVC is normal in size a nd collapses >50% with inspiration. PERICARDIAL EFFUSION There is no evidence of significant pericardial effusion. Critical Notification Critical Value: No <Conclusion> The left ventricular systolic function is normal. The Ejection Fraction is 55-60%. There is normal LV segmental wall motion. Transmitral Doppler flow pattern is Grade I-abnormal relaxation pattern. Trace tricuspid regurgitation. The PA pressure was estimated at 25 mmHg. There is no evidence of significant pericardial effusion. Signed by : Tam Li, Electronically Approved : 08/26/2018 15:42:44
[2018-08-26 19:40] VITALS: BP 108/66
[2018-08-26] MEDS ORDERED: ATORVASTATIN CALCIUM 10 MG TABLET. PO SCH (21:00)
[2018-08-26] MEDS ORDERED: GABAPENTIN 100 MG CAPSULE. PO SCH (21:00)
[2018-08-26] MEDS ORDERED: MONTELUKAST SODIUM 10 MG TABLET. PO SCH (21:00)
[2018-08-26 23:10] VITALS: BP 99/59
[2018-08-27 03:34] VITALS: BP 144/65
[2018-08-27] MEDS ORDERED: LEVOTHYROXINE 75 MCG TABLET PO SCH (06:00)
[2018-08-27 07:00] VITALS: BP 132/69
[2018-08-27] MEDS: METOPROLOL TART IMMED RELEASE 50 MG TABLET. PO SCH (09:32)
[2018-08-27] MEDS: TACROLIMUS 0.5 MG CAPSULE PO SCH (09:32)
[2018-08-27 11:00] VITALS: BP 140/65
--- NOTE | 2018-08-27 11:13 | PDOC3 ---
IM DISCHARGE SUMMARY Date of Admission Date of Admission Date of Admission: Aug 26, 2018 at 03:30 Date of Discharge Date of Discharge August 27, 2018 Primary Diagnosis Primary Diagnosis 1. Chest pain, musculoskeletal 2. History of chronic low back pain. 3. History of anxiety with panic attacks. 4. Hypertension. 5. History of rectal cancer with chronic radiation proctitis and diarrhea. 6. 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 7. Gastroesophageal reflux disease. 8. Depression. 9. Osteoarthritis. 10. History of chronic obstructive pulmonary disease. 11. History of peripheral vascular disease. 12. History of supraventricular tachycardia. 13. History of atrial fibrillation, no anticoagulation. 14. Chronic kidney disease 2. 15. Chronic immunosuppression secondary to medications/liver transplant. 16. Thrombocytopenia secondary to liver disease. Consults Consults Abimael Garcia MD, Dr. Li Labs Labs Laboratory Tests Test 08/26/18 02:40 08/26/18 06:45 08/26/18 08:10 08/26/18 09:45 White Blood Count 6.0 x10^3/uL (4.0-11.0) Red Blood Count 3.74 x10^6/uL (4.30-5.70) Hemoglobin 11.6 g/dL (13.0-17.5) Hematocrit 34.0 % (39.0-53.0) Mean Corpuscular Volume 91 fL (79-100) Mean Corpuscular Hemoglobin 31 pg (25-35) Mean Corpuscular Hemoglobin Concent 34 g/dL (31-37) Red Cell Distribution Width 13.2 % (11.5-14.5) Platelet Count 138 x10^3/uL (140-400) Neutrophils (%) (Auto) 70 % (31-73) Lymphocytes (%) (Auto) 19 % (24-48) Monocytes (%) (Auto) 9 % (0-9) Eosinophils (%) (Auto) 2 % (0-3) Basophils (%) (Auto) 1 % (0-3) Neutrophils # (Auto) 4.2 x10^3uL (1.8-7.7) Lymphocytes # (Auto) 1.1 x10^3/uL (1.0-4.8) Monocytes # (Auto) 0.5 x10^3/uL (0.0-1.1) Eosinophils # (Auto) 0.1 x10^3/uL (0.0-0.7) Basophils # (Auto) 0.0 x10^3/uL (0.0-0.2) D-Dimer (Ruth) 0.57 ug/mlFEU (0.00-0.50) Sodium Level 136 mmol/L (136-145) Potassium Level 3.8 mmol/L (3.5-5.1) Chloride Level 98 mmol/L (98-107) Carbon Dioxide Level 32 mmol/L (21-32) Anion Gap 6 (6-14) Blood Urea Nitrogen 26 mg/dL (8-26) Creatinine 1.3 mg/dL (0.7-1.3) Estimated GFR (Cockcroft-Gault) 54.3 BUN/Creatinine Ratio 20 (6-20) Glucose Level 181 mg/dL (70-99) Calcium Level 9.3 mg/dL (8.5-10.1) Total Bilirubin 0.7 mg/dL (0.2-1.0) Aspartate Amino Transf (AST/SGOT) 27 U/L (15-37) Alanine Aminotransferase (ALT/SGPT) 45 U/L (16-63) Alkaline Phosphatase 103 U/L (46-116) Troponin I Quantitative < 0.017 ng/mL (0.000-0.055) < 0.017 ng/mL (0.000-0.055) < 0.017 ng/mL (0.000-0.055) TU-Fpa-X-Type Natriuretic Peptide 619 pg/mL (0-124) Total Protein 8.2 g/dL (6.4-8.2) Albumin 3.2 g/dL (3.4-5.0) Albumin/Globulin Ratio 0.6 (1.0-1.7) Influenza Type A Antigen Negative (NEGATIVE) Influenza Type B Antigen Negative (NEGATIVE) Magnesium Level 1.4 mg/dL (1.8-2.4) Urine Opiates Screen Neg (NEG) Urine Methadone Screen Neg (NEG) Urine Barbiturates Neg (NEG) Urine Phencyclidine Screen Neg (NEG) Urine Amphetamine/Methamphetamine Neg (NEG) Urine Benzodiazepines Screen Neg (NEG) Urine Cocaine Screen Neg (NEG) Urine Cannabinoids Screen Pos (NEG) Urine Ethyl Alcohol Neg (NEG) Brief hospital course Brief hospital course This 73-year-old male presented to [facility] Emergency Room with chest pain that started yesterday morning. Pain is mainly on the left side of the chest, both anteriorly and posteriorly, is not radiating to the left upper extremity. The patient also has had some dyspnea. He denies any fever or chills. He denies any significant cough or congestion. Last week, he was admitted to [facility] for viral bronchitis. The patient denies any heartburn, nausea, vomiting, diarrhea. He denies any palpitations or dizziness. Because of the persistent chest pains, the patient came to the Emergency Room. In the Emergency Room, the patient was evaluated. His cardiac enzymes were within normal limits. BNP was 619. Magnesium level was 1.4. Troponins are less than 0.017. Sodium 136, potassium 3.8, BUN 26, creatinine 1.3, glucose was 181, albumin 3.2. WBC count 6, hemoglobin 11.6. D-dimer is slightly elevated at 0.57. Urine drug screen shows marijuana. Chest x-ray shows elevated left hemidiaphragm, no new radiographic abnormalities. For more details regarding the past history, family history, social history, surgical history and other details, please refer to History and Physical. During the stay in the hospital consultation was obtained with Dr. Garcia who did not feel that he had any acute ulnar abnormalities. Perfusion scan was negative. Patient was also seen by the group home supervisor and his echocardiogram showed ejection fraction of 55-60% and had no acute abnormalities. Cardiac enzymes were normal. Patient had pain in the left shoulder and left scapular area this morning and worse with movement. It appears that the patient' s pain is musculoskeletal. I will add tizanidine 4 mg 3 times a day when necessary for muscle spasms as patient does complain of some muscle spasms. I will not give him any narcotics as he has a history of narcotic dependence. He has been advised to stop marijuana use. Hypomagnesemia- malnutrition was 1.4. Patient had stopped buying over-the- counter magnesia and he ran out. I advised him to continue oral magnesium at home. Patient was given IV magnesium sulfate 4 g 1. She says pain is musculoskeletal. If he does not improve then he may need physical therapy as outpatient. I'll see him in the office on Friday Condition at the time of discharge improving. Medications Medications reviewed and reconciled for discharge. Allergy Allergies Coded Allergies Type Severity Reaction Last Updated Verified Iodinated Contrast- Oral and IV Dye Allergy Intermediate 04/20/16 Yes testosterone Allergy Intermediate 04/20/16 Yes Follow up in 4 days. DISPOSITION: Home Comments Discharge Management - 35 minutes. For other details please refer to discharge instructions ELENI NIEVES MD Aug 27, 2018 11:13
--- NOTE | 2018-08-27 11:15 | DISCH ---
DISCHARGE INSTRUCTIONS Condition on Discharge Condition on Discharge: Stable Activity After Discharge Activity Instructions for Disc: No restrictions Exercise Instruction after Dis: Progress as tolerated Weight Bearing Status after Di: No restrictions Diet after Discharge Diet after Discharge: Cardiac Additional Diet Restrictions: as tolerated. Diet Texture: Regular Liquid Texture: Thin Liquid Swallowing Supervision: None needed Contacting the DRYoav after DC Call your doctor for: Concerns you may have Follow-Up Follow up with: Dr. ELENI Nievse in 4 days Treatment/Equipment after DC Adaptive Equipment Issued: None ELENI NIEVES MD Aug 27, 2018 11:15
[2018-08-27] MEDS ORDERED: TIZA4TAB PO (11:16)
--- NOTE | 2018-08-27 12:09 | RAD ---
MR#: [id number] Date of Study: 08/26/2018 Ordering Physician: IYFAN WAN, Referring Physician: ELENI NIEVES, Tech: Nuvia Jacques BS, RTR, RDMS, RVT APPROVED REPORT Bilateral Lower Extremity Venous Study for DVT Patient Location: IN-PATIENT Indications Lower Extremity Edema: Bilateral Vein Imaging (Right) CFV (R): Compressible, Spontaneous, Augmentation SFJ (R): Compressible, Spontaneous FEM (R): Compressible, Spontaneous, Augmentation POP (R): Compressible, Spontaneous DFV (R): Spontaneous, Augmentation PTV (R): Spontaneous, Augmentation GSV (R): Compressible, Spontaneous, Augmentation Peroneals (R): Augmentation Vein Imaging (Left) CFV (L): Compressible, Spontaneous, Augmentation SFJ (L): Compressible, Spontaneous FEM (L): Compressible, Spontaneous, Augmentation POP (L): Compressible, Spontaneous, Augmentation DFV (L): Spontaneous, Augmentation PTV (L): Spontaneous, Augmentation GSV (L): Compressible, Spontaneous, Augmentation Peroneals (L): Augmentation Findings The bilateral lower extremity deep veins were evaluated for thrombus with color Doppler, spectral and grayscale images. On the right the grayscale images of the common femoral, superficial femoral and popliteal veins do n ot demonstrate any evidence of thrombus and these veins appear to be compressible. The below-knee vei ns were not well visualized but grossly appear to be compressible. Spectral imaging and color Doppler do not reveal any evidence of obstruction to flow with normal respirophasic variation above the knee . Below the knee there is spontaneous flow noted. On the left, the grayscale images of the common femoral, superficial femoral and popliteal veins do n ot demonstrate any evidence of thrombus and these veins appear to be compressible. The below-knee vei ns again were not well visualized but grossly appear to be compressible. Spectral imaging and color D oppler do not reveal any evidence of obstruction to flow with normal respirophasic variation above th e knee. The below-knee veins demonstrate spontaneous flow. Critical Notification Critical Value: No <Conclusion> No evidence of DVT Incidental right remy's cyst noted measuring 4.0/2.5/0.7 cm. Signed by : Jeremiah Alegria, Electronically Approved : 08/27/2018 12:07:56
== END 2018-08-27 14:20 | disposition home or self-care (01) | DRG 313 ==
LOC: ER 02:11 → 2 NORTH 03:30
PROVIDERS: ADMIT Internal Medicine; ATTEND Internal Medicine
DX: R07.89 Other chest pain (principal); Z94.4 Liver transplant status; I13.0 Hypertensive heart and chronic kidney disease with heart failure and stage 1 through stage 4 chronic kidney disease, or unspecified chronic kidney disease; E46 Unspecified protein-calorie malnutrition; F41.9 Anxiety disorder, unspecified; E78.00 Pure hypercholesterolemia, unspecified; K21.9 Gastro-esophageal reflux disease without esophagitis; G89.29 Other chronic pain; F41.0 Panic disorder [episodic paroxysmal anxiety]; I73.9 Peripheral vascular disease, unspecified; J44.9 Chronic obstructive pulmonary disease, unspecified; M81.0 Age-related osteoporosis without current pathological fracture; K74.60 Unspecified cirrhosis of liver; F32.9 Major depressive disorder, single episode, unspecified; N18.2 Chronic kidney disease, stage 2 (mild); D69.59 Other secondary thrombocytopenia; F12.90 Cannabis use, unspecified, uncomplicated; I50.9 Heart failure, unspecified; M19.90 Unspecified osteoarthritis, unspecified site; E03.9 Hypothyroidism, unspecified; I48.0 Paroxysmal atrial fibrillation; I44.0 Atrioventricular block, first degree; K62.7 Radiation proctitis; E83.42 Hypomagnesemia; Z68.26 Body mass index [BMI] 26.0-26.9, adult; Z90.49 Acquired absence of other specified parts of digestive tract; Z88.8 Allergy status to other drugs, medicaments and biological substances; Z91.041 Radiographic dye allergy status; Z85.048 Personal history of other malignant neoplasm of rectum, rectosigmoid junction, and anus; Z82.49 Family history of ischemic heart disease and other diseases of the circulatory system; Z87.891 Personal history of nicotine dependence; Z86.718 Personal history of other venous thrombosis and embolism; Z85.05 Personal history of malignant neoplasm of liver
CPT/HCPCS: 36415; 71045; 78597; 80053; 80307; 83735; 83880; 84484; 85025; 85379; 87804; 93005; 93306; 93970; 94640; 94760; 96374; 96375; A9540; J1885; J1940; J3475; J7507; J7620; 99285-25

== ENCOUNTER 2019-05-18 01:05 | Emergency (ER) | payer OTHER ==
[~2019-05-18 01:05] MED LIST changes: +ATOR10TA60 PO; +LEVO75TA5 PO; +MONT10TA49 PO; -MONT10TA6 PO; +TACR0.5C2 PO; +TIZA4TAB2 PO; +TRAZ-118 PO; -TRAZ-85 PO
[2019-05-21] MEDS ORDERED: TACR0.5C2 PO (09:51)
[2019-05-21] MEDS ORDERED: DICL100G18 TP (09:51)
[2019-05-21] MEDS ORDERED: CEPH-264 PO (10:13)
== END 2019-05-18 02:06 | disposition left against medical advice (07) ==
LOC: ER 01:05
DX: T14.8XXA Other injury of unspecified body region, initial encounter (principal); Z53.21 Procedure and treatment not carried out due to patient leaving prior to being seen by health care provider

== ENCOUNTER 2020-03-02 17:46 | Inpatient (IN) | payer OTHER ==
[~2020-03-02] VITALS: Ht 172.7 cm; Wt 86.3 kg
[~2020-03-02 17:46] MED LIST changes: +CEPH-264 PO; +DICL100G54 TP; -MAGN400T3 PO; +MAGN400T5 PO; -TACR1CAP4 PO; +TACR1CAP5 PO
[2020-03-02] MEDS ORDERED: fentaNYL PF VIAL 100 MCG/2 ML VIAL IVP ONE ×3 (18:15→19:45)
[2020-03-02] MEDS ORDERED: IV NORMAL SALINE 1000ML BAG 1,000 ML IV ONE (18:15)
[2020-03-02] MEDS ORDERED: CLINDAMYCIN 600MG PREMIX 50 ML IV ONE (18:15)
--- NOTE | 2020-03-02 18:26 | PHYS DOC ---
Past Medical History Past Medical History: Anxiety, Cancer, GERD, High Cholesterol, Hypotension, Hepatitis, Other Additional Past Medical Histor: chronic back pain; colon ca-CHEMO & RADIATION; former hep C,PANIC ATTACKS Past Surgical History: Cholecystectomy, Tonsillectomy, Other Additional Past Surgical Histo: Liver transplant,PORT-A-CATH -removal Smoking Status: Former Smoker Alcohol Use: None Drug Use: Marijuana General Adult EDM: Chief Complaint: CELLULITIS HPI: HPI: Patient is a 74 year old female who presents for evaluation of right arm and wrist area redness, pain and swelling. Patient has multiple immunosuppressive risk factors and is status post liver transplant and colon cancer treatments. Patient provider, Dr. Eleni Soliz sent patient in for evaluation. There is concerned about possible cellulitis developing. Patient does have a low-grade fever in triage. Patient was also in moderate pain on arrival Review of Systems: Review of Systems: Constitutional: has fever or chills. [] Eyes: Denies change in visual acuity. [] HENT: Denies nasal congestion or sore throat. [] Respiratory: Denies cough or shortness of breath. [] Cardiovascular: Denies chest pain or edema. [] GI: Denies abdominal pain, nausea, vomiting, bloody stools or diarrhea. [] : Denies dysuria. [] Musculoskeletal: Denies back pain or joint pain. [] Integument: Has redness and swelling to right wrist and forearm. [] Neurologic: Denies headache, focal weakness or sensory changes. [] Endocrine: Denies polyuria or polydipsia. [] Lymphatic: Denies swollen glands. [] Psychiatric: Denies depression or anxiety. [] Heart Score: Risk Factors: Risk Factors: DM, Current or recent (<one month) smoker, HTN, HLP, family history of CAD, obesity. Risk Scores: Score 0 - 3: 2.5% MACE over next 6 weeks - Discharge Home Score 4 - 6: 20.3% MACE over next 6 weeks - Admit for Clinical Observation Score 7 - 10: 72.7% MACE over next 6 weeks - Early Invasive Strategies Current Medications: Current Medications Medications (Trade) Dose Ordered Sig/Sarahy Start Time Stop Time Status Last Admin Dose Admin Clindamycin Phosphate 50 ml @ 100 mls/hr 1X ONCE 03/02/20 18:15 03/02/20 18:44 Fentanyl Citrate (Fentanyl 2ml Vial) 50 mcg 1X ONCE 03/02/20 18:15 03/02/20 18:17 DC Sodium Chloride 1,000 ml @ 125 mls/hr 1X ONCE 03/02/20 18:15 03/03/20 02:14 Allergies: Allergies: Allergies Coded Allergies Type Severity Reaction Last Updated Verified Iodinated Contrast Media Allergy Intermediate 04/20/16 Yes testosterone Allergy Intermediate 04/20/16 Yes Physical Exam: PE: Constitutional: Well developed, well nourished, mild distress, non-toxic appearance. [] HENT: Normocephalic, atraumatic, bilateral external ears normal, oropharynx moist, no oral exudates, nose normal. [] Eyes: PERRL, EOMI, conjunctiva normal, no discharge. [] Neck: Normal range of motion, no tenderness, supple, no stridor. [] Cardiovascular:Heart rate regular rhythm, murmur [] Lungs & Thorax: Bilateral breath sounds clear to auscultation [] Abdomen: Bowel sounds normal, soft, no tenderness, no masses, no pulsatile masses. [] Skin: Warm, dry, erythema to right wrist and forearm, no rash. [] Back: No tenderness, no CVA tenderness. [] Extremities: right arm tenderness with erythema, no cyanosis, no clubbing, ROM intact, mild edema to right wrist and forearm. [] Neurologic: Alert and oriented X 3, normal motor function, normal sensory function, no focal deficits noted. [] Psychologic: Affect normal, judgement normal, mood normal. [] Current Patient Data: Labs: Laboratory Tests Test 03/02/20 18:24 White Blood Count 5.0 x10^3/uL Red Blood Count 3.55 x10^6/uL Hemoglobin 10.9 g/dL Hematocrit 32.0 % Mean Corpuscular Volume 90 fL Mean Corpuscular Hemoglobin 31 pg Mean Corpuscular Hemoglobin Concent 34 g/dL Red Cell Distribution Width 13.5 % Platelet Count 114 x10^3/uL Neutrophils (%) (Auto) 67 % Lymphocytes (%) (Auto) 20 % Monocytes (%) (Auto) 11 % Eosinophils (%) (Auto) 2 % Basophils (%) (Auto) 0 % Neutrophils # (Auto) 3.3 x10^3/uL Lymphocytes # (Auto) 1.0 x10^3/uL Monocytes # (Auto) 0.6 x10^3/uL Eosinophils # (Auto) 0.1 x10^3/uL Basophils # (Auto) 0.0 x10^3/uL Sodium Level 137 mmol/L Potassium Level 4.2 mmol/L Chloride Level 100 mmol/L Carbon Dioxide Level 30 mmol/L Anion Gap 7 Blood Urea Nitrogen 27 mg/dL Creatinine 1.5 mg/dL Estimated GFR (Cockcroft-Gault) 45.9 BUN/Creatinine Ratio 18 Glucose Level 140 mg/dL Lactic Acid Level 1.0 mmol/L Uric Acid 6.3 mg/dL Calcium Level 8.7 mg/dL Total Bilirubin 0.5 mg/dL Aspartate Amino Transf (AST/SGOT) 21 U/L Alanine Aminotransferase (ALT/SGPT) 31 U/L Alkaline Phosphatase 114 U/L Total Protein 7.6 g/dL Albumin 3.0 g/dL Albumin/Globulin Ratio 0.7 Current Medications Medications (Trade) Dose Ordered Sig/Sarahy Route PRN Reason Start Time Stop Time Status Last Admin Dose Admin Sodium Chloride 1,000 ml @ 125 mls/hr 1X ONCE IV 03/02/20 18:15 03/03/20 02:14 03/02/20 18:48 Fentanyl Citrate (Fentanyl 2ml Vial) 50 mcg 1X ONCE IVP 03/02/20 18:15 03/02/20 18:17 DC 03/02/20 18:38 Clindamycin Phosphate 50 ml @ 100 mls/hr 1X ONCE IV 03/02/20 18:15 03/02/20 18:44 DC 03/02/20 18:46 Fentanyl Citrate (Fentanyl 2ml Vial) 50 mcg 1X ONCE IVP 03/02/20 19:30 03/02/20 19:31 DC EKG: EKG: [] Radiology/Procedures: Radiology/Procedures: [facility] [address] [place] [address] IMAGING REPORT Signed PATIENT: MARCIO MANRIQUE ACCOUNT: [id number] : 1945 LOCATION: ER AGE: 74 SEX: M EXAM STATUS: REG ER ORD. PHYSICIAN: EMMANUEL JUNG DO REASON: short of air PROCEDURE: CHEST AP ONLY EXAM: Chest, single view. HISTORY: Shortness of air. COMPARISON: 05/18/2019 FINDINGS: A frontal view of the chest is obtained. There is stable elevation of the left hemidiaphragm with left basilar compressive atelectasis. There is no infiltrate, pleural effusion or pneumothorax. There is a stable prominent cardiac silhouette. IMPRESSION: Stable elevation of the left hemidiaphragm with left basilar compressive atelectasis. Electronically signed by: Kiarra Melendez MD (03/02/2020 6:58 PM) [facility] DICTATED and SIGNED BY: KIARRA MELENDEZ MD DATE: 03/02/201857 [] Course & Med Decision Making: Course & Med Decision Making Pertinent Labs and Imaging studies reviewed. (See chart for details) [] Dragon Disclaimer: Dragon Disclaimer: This electronic medical record was generated, in whole or in part, using a voice recognition dictation system. 1950 Case was discussed with Dr. Eleni Soliz. Will admit to [facility] for observation. As requested we will give dose of Zosyn and vancomycin due to patient's immune compromised state Departure Departure Impression: Primary Impression: Cellulitis of right arm Additional Impressions: History of liver transplant Fever Qualified Codes: R50.9 - Fever, unspecified Disposition: ADMITTED INPATIENT Admitting Physician: Eleni Soliz Condition: STABLE Referrals: ELENI SOLIZ MD (PCP) Justicifation of Admission Dx: Justifications for Admission: Justification of Admission Dx: Yes Cellulitis: Cellulitis EMMANUEL JUNG DO Mar 02, 2020 18:26
[2020-03-02 18:40] LABS: BASO % 0 % (0-3); EOS # 0.1 x10^3/uL (0.0-0.7); EOS % 2 % (0-3); HEMOGLOBIN 10.9 g/dL (13.0-17.5); LYMPH % 20 % (24-48); MEAN CORPUSCULAR HEMOGLOBIN 31 pg (25-35); MEAN CORPUSCULAR HGB CONC 34 g/dL (31-37); MEAN CORPUSCULAR VOLUME 90 fL (79-100); MONO # 0.6 x10^3/uL (0.0-1.1); MONO % 11 % (0-9); NEUT # 3.3 x10^3/uL (1.8-7.7); NEUT % 67 % (31-73); PLATELET COUNT 114 x10^3/uL (140-400); RED BLOOD COUNT 3.55 x10^6/uL (4.30-5.70); RED CELL DISTRIBUTION WIDTH 13.5 % (11.5-14.5)
[2020-03-02 18:48] LABS: CALCIUM 8.7 mg/dL (8.5-10.1); CREATININE 1.5 mg/dL (0.7-1.3); GFR 45.9; POTASSIUM 4.2 mmol/L (3.5-5.1)
[2020-03-02 18:54] LABS: ALBUMIN/GLOBULIN RATIO 0.7 (1.0-1.7); TOTAL BILIRUBIN 0.5 mg/dL (0.2-1.0); TOTAL PROTEIN 7.6 g/dL (6.4-8.2); URIC ACID 6.3 mg/dL (3.5-7.2)
--- NOTE | 2020-03-02 19:01 | RAD ---
EXAM: Chest, single view. HISTORY: Shortness of air. COMPARISON: 05/18/2019 FINDINGS: A frontal view of the chest is obtained. There is stable elevation of the left hemidiaphragm with left basilar compressive atelectasis. There is no infiltrate, pleural effusion or pneumothorax. There is a stable prominent cardiac silhouette. IMPRESSION: Stable elevation of the left hemidiaphragm with left basilar compressive atelectasis. Electronically signed by: Kiarra Garza MD (03/02/2020 6:58 PM) [facility]
[2020-03-02] MEDS ORDERED: ONDANSETRON PF 4 MG/2 ML VIAL. IVP ONE (19:45)
[2020-03-02] MEDS ORDERED: VANCOMYCIN 1.25 GM in IV NORMAL SALINE 250ML 250 ML IV ONE (20:00)
[2020-03-02] MEDS ORDERED: ONDANSETRON PF 4 MG/2 ML VIAL. IV PRN (20:00)
[2020-03-02] MEDS ORDERED: PIPERACILLIN/TAZOBACTAM 3.375 GM in IV NORMAL SALINE 50ML 50 ML IV ONE (20:00)
[2020-03-02 20:39] LABS: BILIRUBIN,URINE NEGATIVE (NEG); CLARITY,URINE CLEAR; COLOR,URINE YELLOW; NITRITE,URINE NEGATIVE (NEG); PH,URINE 6.5 (<5.0-8.0); PROTEIN,URINE NEGATIVE (NEG-TRACE); UROBILINOGEN,URINE 0.2 mg/dL (0.2 mg/dL)
[2020-03-02 20:45] LABS: WBC,URINE OCC /HPF (0-4)
[2020-03-02 20:46] LABS: BACTERIA,URINE 0 /HPF (0-FEW); SQUAMOUS EPITHELIAL CELL,UR FEW /LPF
[2020-03-02] MEDS: fentaNYL PF VIAL 100 MCG/2 ML VIAL IV PRN ×2 (22:09→23:35)
[2020-03-02] MEDS: GABAPENTIN 100 MG CAPSULE. PO SCH (23:34)
[2020-03-02] MEDS: MONTELUKAST SODIUM 10 MG TABLET. PO SCH (23:34)
[2020-03-02] MEDS: TACROLIMUS 0.5 MG CAPSULE PO SCH (23:34)
[2020-03-02] MEDS: METOPROLOL TART IMMED RELEASE 25 MG TABLET. PO SCH (23:35)
[2020-03-02] MEDS: DICLOFENAC SODIUM 1% TOPICAL GEL 100GM TUBE. TP SCH (23:36)
[2020-03-03] VITALS (7 sets, daily range): BP systolic 124–143; BP diastolic 46–85
[2020-03-03] MEDS: fentaNYL PF VIAL 100 MCG/2 ML VIAL IV PRN ×4 (03:15→08:13)
[2020-03-03] MEDS: LEVOTHYROXINE 75 MCG TABLET PO SCH (06:00)
[2020-03-03] MEDS: METOPROLOL TART IMMED RELEASE 25 MG TABLET. PO SCH ×2 (08:11→20:57)
[2020-03-03] MEDS: TACROLIMUS 0.5 MG CAPSULE PO SCH ×2 (08:11→20:57)
[2020-03-03] MEDS: TAMSULOSIN 0.4 MG CAP.ER.24H. PO SCH (08:11)
[2020-03-03] MEDS: DICLOFENAC SODIUM 1% TOPICAL GEL 100GM TUBE. TP SCH ×2 (08:12→21:00)
--- NOTE | 2020-03-03 08:13 | NUR ---
SW following. Discussed with RN, pt from home, gets around fine, regular diet. Awaiting further plan of care. SW will continue to follow for any discharge planning needs.
[2020-03-03] MEDS ORDERED: VANCOMYCIN PER PHARMACY MC PRN (09:30)
[2020-03-03] MEDS ORDERED: MORPHINE SULFATE 2 MG/ML VIAL. IV PRN (10:00)
[2020-03-03] MEDS: MORPHINE SULFATE 4 MG/ML VIAL. IV PRN ×5 (10:14→23:26)
--- NOTE | 2020-03-03 10:15 | PDOC ---
Provider Note Provider Note H&P dictated #[id number]. Justicifation of Admission Dx: Justifications for Admission: Justification of Admission Dx: Yes Cellulitis: Cellulitis ELENI NIEVES MD Mar 03, 2020 10:15
[2020-03-03] MEDS ORDERED: VANCOMYCIN 2 GM in IV NORMAL SALINE 500ML BAG 500 ML IV ONE (11:00)
--- NOTE | 2020-03-03 11:26 | HP ---
ADMIT DATE: 03/03/2020 HISTORY OF PRESENT ILLNESS: This 74-year-old male started having swelling of the right forearm, hand and wrist that started 4 days ago. There is no history of trauma. The patient had severe joint pain, body aches, fever, skin discoloration and warmth. He felt that he is getting also rash in the left upper extremity. He is not sure if he had a puncture bite from an insect. The patient was seen in the office and had quite significant swelling and cellulitis of the right upper extremity distally. He is also immunocompromised and because of the severe cellulitis and multiple medical problems, the patient was sent to the Emergency Room. In the Emergency Room, the patient was evaluated and admitted for further evaluation and management. He was given a dose of Zosyn and vancomycin. REVIEW OF SYSTEMS: The patient denies any cold, cough, congestion, chest pains, palpitations, nausea or vomiting. Other systems reviewed and are negative. PAST MEDICAL HISTORY: The patient has a history of hypertension; cancer of the colon, in 2011 had radiation and chemotherapy, no surgery; had hepatic mass in 2002, had radiation therapy; cirrhosis of liver, grade 3, stage 4, had liver biopsy in 2001, had liver transplant in 2003; has had colonoscopy and polypectomy in the past; constipation; COPD; degenerative disk disease and lumbar radiculitis; erectile dysfunction; arthritis of the right shoulder with arthrocentesis; cervical degenerative disk disease; cholangitis; hepatitis C, recurring after liver transplant; history of H. pylori gastritis; osteoarthritis; thoracic degenerative disk disease, peripheral artery disease, osteoporosis, recurrent bronchitis. PAST SURGICAL HISTORY: As noted earlier had liver transplant, liver biopsy, colonoscopy with polypectomy MEDICATIONS: Reviewed and reconciled. ALLERGIES: THE PATIENT IS ALLERGIC TO IODINATED CONTRAST MEDIA AND TESTOSTERONE ALSO. SOCIAL HISTORY: The patient has a history of smoking and marijuana use. He was in the past dependent on the narcotic drugs. PHYSICAL EXAMINATION: VITAL SIGNS: Temperature 98.8, pulse 91 per minute, respirations 20 per minute, blood pressure 143/68 mmHg. GENERAL: The patient is an elderly male who is alert, oriented x 3, and in mild distress due to pain. EYES: Pupils reacting to light. Conjunctivae pale. Sclerae muddy. HENT: Unremarkable. NECK: Supple. JVP normal. No thyromegaly. Trachea midline. LUNGS: Clear with decreased breath sounds at bases. CARDIOVASCULAR: S1, S2 regular. ABDOMEN: Soft, nontender, bowel sounds present. EXTREMITIES: No edema of the lower extremities Right distal forearm, wrist and hand are quite swollen with tenderness and decreased range of motion. Has slight rash in the left forearm. CENTRAL NERVOUS SYSTEM: Alert and oriented. IMPRESSION: 1. Cellulitis of the right forearm, hand and wrist. 2. Hypertension. 3. Status post liver transplant. 4. Immunosuppression. 5. History of carcinoma of colon. 6. Cirrhosis of liver, grade 3, stage 4. 7. Degenerative disk disease. 8. History of hepatitis C. PLAN: Continue IV Zosyn and vancomycin. I will consult Dr. Sapp for Infectious Disease evaluation and management because of his complex medical problems and immunosuppression. Continue home medications. Give IV morphine for pain control for now as he is in severe pain. For details, please refer to the orders. ELENI NIEVES MD DR: EDWARD/silvina JOB#: [id number] / [id number]
--- NOTE | 2020-03-03 12:08 | PDOC ---
Infectious Disease Note Vital Sign Vital Signs Vital Signs Date Time Temp Pulse Resp B/P (MAP) Pulse Ox O2 Delivery O2 Flow Rate FiO2 03/03/20 11:00 97.8 65 18 140/84 (102) 97 Room Air 97.8 03/03/20 06:34 4.0 Labs Lab Laboratory Tests Test 03/02/20 18:24 03/02/20 20:30 White Blood Count 5.0 x10^3/uL (4.0-11.0) Red Blood Count 3.55 x10^6/uL (4.30-5.70) Hemoglobin 10.9 g/dL (13.0-17.5) Hematocrit 32.0 % (39.0-53.0) Mean Corpuscular Volume 90 fL (79-100) Mean Corpuscular Hemoglobin 31 pg (25-35) Mean Corpuscular Hemoglobin Concent 34 g/dL (31-37) Red Cell Distribution Width 13.5 % (11.5-14.5) Platelet Count 114 x10^3/uL (140-400) Neutrophils (%) (Auto) 67 % (31-73) Lymphocytes (%) (Auto) 20 % (24-48) Monocytes (%) (Auto) 11 % (0-9) Eosinophils (%) (Auto) 2 % (0-3) Basophils (%) (Auto) 0 % (0-3) Neutrophils # (Auto) 3.3 x10^3/uL (1.8-7.7) Lymphocytes # (Auto) 1.0 x10^3/uL (1.0-4.8) Monocytes # (Auto) 0.6 x10^3/uL (0.0-1.1) Eosinophils # (Auto) 0.1 x10^3/uL (0.0-0.7) Basophils # (Auto) 0.0 x10^3/uL (0.0-0.2) Sodium Level 137 mmol/L (136-145) Potassium Level 4.2 mmol/L (3.5-5.1) Chloride Level 100 mmol/L (98-107) Carbon Dioxide Level 30 mmol/L (21-32) Anion Gap 7 (6-14) Blood Urea Nitrogen 27 mg/dL (8-26) Creatinine 1.5 mg/dL (0.7-1.3) Estimated GFR (Cockcroft-Gault) 45.9 BUN/Creatinine Ratio 18 (6-20) Glucose Level 140 mg/dL (70-99) Lactic Acid Level 1.0 mmol/L (0.4-2.0) Uric Acid 6.3 mg/dL (3.5-7.2) Calcium Level 8.7 mg/dL (8.5-10.1) Total Bilirubin 0.5 mg/dL (0.2-1.0) Aspartate Amino Transf (AST/SGOT) 21 U/L (15-37) Alanine Aminotransferase (ALT/SGPT) 31 U/L (16-63) Alkaline Phosphatase 114 U/L (46-116) Total Protein 7.6 g/dL (6.4-8.2) Albumin 3.0 g/dL (3.4-5.0) Albumin/Globulin Ratio 0.7 (1.0-1.7) Urine Collection Type Unknown Urine Color Yellow Urine Clarity Clear Urine pH 6.5 (<5.0-8.0) Urine Specific [place] 1.015 (1.000-1.030) Urine Protein Negative mg/dL (NEG-TRACE) Urine Glucose (UA) Negative mg/dL (NEG) Urine Ketones (Stick) Negative mg/dL (NEG) Urine Blood Negative (NEG) Urine Nitrite Negative (NEG) Urine Bilirubin Negative (NEG) Urine Urobilinogen Dipstick 0.2 mg/dL (0.2 mg/dL) Urine Leukocyte Esterase Negative (NEG) Urine RBC 6-10 /HPF (0-2) Urine WBC Occ /HPF (0-4) Urine Squamous Epithelial Cells Few /LPF Urine Bacteria 0 /HPF (0-FEW) Urine Mucus Slight /LPF Objective Assessment right wrist cellultitis Immunosupression Fever CKD Plan Plan of Care Cont zosyn D/c Vanc and add Zyvox F/u Xray hand/wrist Could still be gout so have to monitor F/u lab and cults Thank you # [id number] MARIAMA HERNANDEZ MD Mar 03, 2020 12:08
--- NOTE | 2020-03-03 14:04 | CONS ---
DATE OF CONSULTATION: 03/03/2020 INFECTIOUS DISEASE CONSULTATION LOCATION: The patient's room is 430. REQUESTING PHYSICIAN: Dr. Soliz. REASON FOR CONSULTATION: Cellulitis. HISTORY OF PRESENT ILLNESS: The patient is a 74-year-old gentleman with a history of previous liver transplant and a distant history of hepatitis C that was treated in the past. He states this past Friday on the , he was out in the sun doing a lot of grilling, did not feel quite right and felt like he may have gotten a little dehydrated, but denies any injury or trauma and on awakening on Friday noticed that his right wrist was a little bit swollen and became more painful. He denies trauma. He thinks he may have had a little bug bite because he feels something abnormal, but he did not see any bugs. There is no history of gout, previously and no exposure to a complaint of cough, poison Mis. He began to have increasing body aches, fevers, fatigue, joint aches and more redness on the right upper extremity. He was seen in the outpatient setting, but sent to the Emergency Room for further evaluation and admission. He did have a temperature up to 100.5. White blood cell count was normal at 20% lymphs. X-ray of his chest was performed that did not show any acute process. Currently, he is lying in bed, feels a little bit less swollen in his wrist. No problems passing his urine. PAST MEDICAL HISTORY: Positive for previous influenza A, history of atrial fibrillation, hypertension, SVT, COPD, gastritis, hemorrhoids, hepatitis C, hepatocellular carcinoma, history of rectal cancer with history of chemotherapy and radiation, anemia, anxiety, depression, low back pain with radiculitis, osteoarthritis, chronic renal insufficiency, osteoporosis, metapneumovirus and lower extremity neuropathy. PAST SURGICAL HISTORY: Positive for liver transplantation. REVIEW OF SYSTEMS: Otherwise negative except for what is mentioned above. He also has a little edema in his legs. ALLERGIES: LISTED TESTOSTERONE, IODINE, IV CONTRAST. SOCIAL HISTORY: He is a former smoker, distant history of illicit drug use. FAMILY HISTORY: Positive for coronary artery disease. CURRENT MEDICATIONS: He has received vancomycin and clindamycin x 1 and Zosyn. He is on Lipitor, gabapentin, Synthroid, metoprolol, Singulair, tacrolimus, Flomax. PHYSICAL EXAMINATION: VITAL SIGNS: T-max was 100.5, currently 97.8, pulse 65, respirations 18, blood pressure 140/84, satting 97% on room air. CONSTITUTIONAL: He is lying in bed. He is cooperative. He is in no acute distress. HEENT: Pupils equal and reactive. Normal conjunctivae. Oral cavity, pharynx clear. NECK: Supple, no JVD. LUNGS: Clear to auscultation bilaterally without wheeze. HEART: S1, S2. ABDOMEN: Soft, nontender, nondistended, positive bowel sounds. EXTREMITIES: Without clubbing, cyanosis. He has trace lower extremity edema. SKIN: Warm to touch without signs of rash. He has right wrist and hand dorsal aspect of erythema and some tenderness with wrist movement. There is slight edema and slight warmth. NEUROLOGIC: He is alert, moves all extremities. PSYCHIATRIC: Affect is appropriate. LABORATORY DATA: White count was 5, hemoglobin 10.9, platelets of 114, neutrophils are 67, lymphs are 20. Creatinine is 1.5, glucose 140. Normal liver function study tests. Uric acid was 6.3. Lactic acid was 1. Chest x-ray reviewed in history of present illness. IMPRESSION: 1. Right wrist cellulitis. 2. Immunosuppression. 3. Fever. 4. Chronic kidney disease. RECOMMENDATIONS: We will continue Zosyn for now, discontinue the vancomycin. We will add Zyvox. X-ray of the hand and wrist have been ordered, could still be gout, so have to monitor, despite his normal uric acid, follow up labs and cultures. Thank you for the patient's care. If you have any questions, please do not hesitate to contact me. MARIAMA HERNANDEZ MD DR: ELENA/silvina JOB#: [id number] / [id number] MARVIN
[2020-03-03] MEDS: PIPERACILLIN/TAZOBACTAM 3.375 GM in IV NORMAL SALINE 50ML 50 ML IV SCH ×4 (14:06→23:26)
--- NOTE | 2020-03-03 17:00 | RAD ---
PROCEDURE: WRIST 3V RIGHT, HAND RIGHT 3V, FOREARM RIGHT STUDY DATE: 03/03/2020 CLINICAL INDICATION / HISTORY: Reason: swelling 430 / Spl. Instructions: / History: . TECHNIQUE: PA, lateral and oblique views of the right hand. COMPARISON: None FINDINGS: No fracture or dislocation is identified. The bone density is normal. The joint spaces are maintained, and there are no erosions to suggest an inflammatory arthropathy. The soft tissues are unremarkable. IMPRESSION: No acute osseous abnormality. PROCEDURE: WRIST 3V RIGHT, HAND RIGHT 3V, FOREARM RIGHT STUDY DATE: 03/03/2020 CLINICAL INDICATION / HISTORY: Reason: swelling 430 / Spl. Instructions: / History: . TECHNIQUE: Left wrist 3 views. AP, lateral, oblique views. COMPARISON: None FINDINGS: The radiocarpal and intracarpal relationships are maintained. There is subtle increased density to the lunate and there is subchondral cystic change along the radiocarpal joint in the lunate bone. There is mild radiocarpal joint space narrowing as well. There is no fracture or dislocation. The bone density is otherwise normal. Chondrocalcinosis in the region of the triangular fibrocartilage is noted.. IMPRESSION: Degenerative changes in the radiocarpal joint with subtle sclerosis in the lunate that likely reflects degenerative change. MRI could be considered in further evaluation if Kienbock's disease is suspected. Otherwise negative right wrist. PROCEDURE: WRIST 3V RIGHT, HAND RIGHT 3V, FOREARM RIGHT STUDY DATE: 03/03/2020 CLINICAL INDICATION / HISTORY: Reason: swelling 430 / Spl. Instructions: / History: . TECHNIQUE: Right forearm 2 views. AP and lateral views. COMPARISON: None FINDINGS: No fracture or dislocation is identified. The bone density appears normal. The wrist and elbow joints are approximated. Arterial calcifications are present. Mild edema on the ulnar side of the right wrist is also seen. No other tissue abnormality is seen. IMPRESSION: Arterial vascular calcifications and mild edema in the right wrist. Otherwise no abnormality identified in the right forearm. Electronically signed by: Hood Florez MD (03/03/2020 4:57 PM) [id number]
--- NOTE | 2020-03-03 18:35 | NUR ---
pt had 3rd IV go bad. RN attempted X2 to restart unsuccessfully. pt states he is tired of "being poked". Pg to Dr. Soliz.
[2020-03-03] MEDS: ATORVASTATIN CALCIUM 10 MG TABLET. PO SCH ×2 (20:57)
[2020-03-03] MEDS: LINEZOLID 600 MG TABLET PO SCH (20:57)
[2020-03-03] MEDS: MONTELUKAST SODIUM 10 MG TABLET. PO SCH (20:57)
[2020-03-03] MEDS: GABAPENTIN 100 MG CAPSULE. PO SCH (20:57)
[2020-03-03] MEDS: diphenhydrAMINE HCL 25 MG CAPSULE PO PRN (20:57)
[2020-03-04] MEDS: MORPHINE SULFATE 4 MG/ML VIAL. IV PRN ×4 (03:25→20:56)
[2020-03-04] MEDS: diphenhydrAMINE HCL 25 MG CAPSULE PO PRN (03:26)
[2020-03-04 03:31] VITALS: BP 123/43
[2020-03-04 04:22] LABS: AMPHETAMINE/METHAMPHETAMINE NEG (NEG); BARBITURATES NEG (NEG); BENZODIAZEPINES NEG (NEG); CANNABINOIDS POS (NEG); COCAINE NEG (NEG); METHADONE POS (NEG); OPIATES POS (NEG); PHENCYCLIDINE NEG (NEG)
[2020-03-04] MEDS: LEVOTHYROXINE 75 MCG TABLET PO SCH (06:38)
[2020-03-04] MEDS: PIPERACILLIN/TAZOBACTAM 3.375 GM in IV NORMAL SALINE 50ML 50 ML IV SCH ×4 (06:38→23:38)
[2020-03-04 07:00] VITALS: BP 150/57
[2020-03-04 07:37] LABS: BASO % 1 % (0-3); EOS # 0.1 x10^3/uL (0.0-0.7); EOS % 3 % (0-3); HEMATOCRIT 30.3 % (39.0-53.0); HEMOGLOBIN 10.1 g/dL (13.0-17.5); LYMPH # 0.7 x10^3/uL (1.0-4.8); LYMPH % 24 % (24-48); MEAN CORPUSCULAR HEMOGLOBIN 30 pg (25-35); MEAN CORPUSCULAR HGB CONC 33 g/dL (31-37); MEAN CORPUSCULAR VOLUME 92 fL (79-100); MONO # 0.3 x10^3/uL (0.0-1.1); MONO % 11 % (0-9); NEUT # 1.7 x10^3/uL (1.8-7.7); NEUT % 61 % (31-73); PLATELET COUNT 98 x10^3/uL (140-400); RED BLOOD COUNT 3.31 x10^6/uL (4.30-5.70); RED CELL DISTRIBUTION WIDTH 13.4 % (11.5-14.5); WHITE BLOOD COUNT 2.9 x10^3/uL (4.0-11.0)
[2020-03-04 07:40] LABS: CALCIUM 8.3 mg/dL (8.5-10.1); CREATININE 1.5 mg/dL (0.7-1.3); GFR 45.9; POTASSIUM 4.6 mmol/L (3.5-5.1)
[2020-03-04] MEDS: LINEZOLID 600 MG TABLET PO SCH ×2 (08:22→20:58)
[2020-03-04] MEDS: TACROLIMUS 0.5 MG CAPSULE PO SCH ×2 (08:22→20:57)
[2020-03-04] MEDS: TAMSULOSIN 0.4 MG CAP.ER.24H. PO SCH (08:22)
[2020-03-04] MEDS: METOPROLOL TART IMMED RELEASE 25 MG TABLET. PO SCH ×2 (08:23→20:57)
[2020-03-04] MEDS: DICLOFENAC SODIUM 1% TOPICAL GEL 100GM TUBE. TP SCH ×2 (09:00→20:58)
--- NOTE | 2020-03-04 09:13 | PDOC ---
IM PROGRESS NOTES- Subjective Subjective Complaints of pain in the right wrist, hand and forearm. Complains of itching. Patient had a lot of anxiety and paranoia yesterday. He is somewhat better this morning. Objective Vitals/I&O Vital Signs Date Time Temp Pulse Resp B/P (MAP) Pulse Ox O2 Delivery O2 Flow Rate FiO2 03/04/20 08:23 72 150/57 03/04/20 07:00 97.4 20 100 Room Air 97.4 03/03/20 08:00 2.0 I & O 03/03/20 03/03/20 03/04/20 15:00 23:00 07:00 Intake Total 250 ml 150 ml Output Total 900 ml Balance -650 ml 150 ml Physical Exam Physical Exam General appearance - alert,well appearing, and in no distress and oriented to person, place, and time Mental Status - alert, oriented to person, place, and time, affect appropriate to mood Head - normal Chest -decreased breath sounds at bases Heart - S1 and S2 normal Abdomen - soft, nontender, Neurological - alert and oriented, anxious Musculoskeletal -swelling, redness of the right distal forearm hand and wrist improving. He has a small puncture minda on the dorsum of the right hand. Extremities - no pedal edema Skin - warm and dry Labs Laboratory Tests Test 03/04/20 02:30 03/04/20 06:15 Urine Opiates Screen Pos (NEG) Urine Methadone Screen Pos (NEG) Urine Barbiturates Neg (NEG) Urine Phencyclidine Screen Neg (NEG) Urine Amphetamine/Methamphetamine Neg (NEG) Urine Benzodiazepines Screen Neg (NEG) Urine Cocaine Screen Neg (NEG) Urine Cannabinoids Screen Pos (NEG) Urine Ethyl Alcohol Neg (NEG) White Blood Count 2.9 x10^3/uL (4.0-11.0) L Red Blood Count 3.31 x10^6/uL (4.30-5.70) L Hemoglobin 10.1 g/dL (13.0-17.5) L Hematocrit 30.3 % (39.0-53.0) L Mean Corpuscular Volume 92 fL (79-100) Mean Corpuscular Hemoglobin 30 pg (25-35) Mean Corpuscular Hemoglobin Concent 33 g/dL (31-37) Red Cell Distribution Width 13.4 % (11.5-14.5) Platelet Count 98 x10^3/uL (140-400) L Neutrophils (%) (Auto) 61 % (31-73) Lymphocytes (%) (Auto) 24 % (24-48) Monocytes (%) (Auto) 11 % (0-9) H Eosinophils (%) (Auto) 3 % (0-3) Basophils (%) (Auto) 1 % (0-3) Neutrophils # (Auto) 1.7 x10^3/uL (1.8-7.7) L Lymphocytes # (Auto) 0.7 x10^3/uL (1.0-4.8) L Monocytes # (Auto) 0.3 x10^3/uL (0.0-1.1) Eosinophils # (Auto) 0.1 x10^3/uL (0.0-0.7) Basophils # (Auto) 0.0 x10^3/uL (0.0-0.2) Sodium Level 140 mmol/L (136-145) Potassium Level 4.6 mmol/L (3.5-5.1) Chloride Level 105 mmol/L (98-107) Carbon Dioxide Level 30 mmol/L (21-32) Anion Gap 5 (6-14) L Blood Urea Nitrogen 21 mg/dL (8-26) Creatinine 1.5 mg/dL (0.7-1.3) H Estimated GFR (Cockcroft-Gault) 45.9 Glucose Level 103 mg/dL (70-99) H Calcium Level 8.3 mg/dL (8.5-10.1) L Laboratory Tests 03/04/20 06:15 Laboratory Tests 03/04/20 06:15 Meds Current Medications Medications (Trade) Dose Ordered Sig/Sarahy Route PRN Reason Start Time Stop Time Status Last Admin Dose Admin Piperacillin Sod/ Tazobactam Sod 3.375 gm/Sodium Chloride 50 ml @ 100 mls/hr Q6HRS IV 03/03/20 12:00 03/04/20 06:38 Vancomycin HCl (Vanco Per Pharmacy) 1 each PRN DAILY PRN MC SEE COMMENTS 03/03/20 09:30 03/03/20 12:09 DC 03/03/20 11:06 Vancomycin HCl 2 gm/Sodium Chloride 500 ml @ 250 mls/hr 1X ONCE IV 03/03/20 11:00 03/03/20 12:59 DC 03/03/20 10:14 Morphine Sulfate (Morphine Sulfate) 4 mg PRN Q4HRS PRN IV PAIN 03/03/20 10:00 03/04/20 08:23 Linezolid (Zyvox) 600 mg BID PO 03/03/20 21:00 03/04/20 08:22 Diphenhydramine HCl (Benadryl) 25 mg PRN Q6HRS PRN PO ITCHING 03/03/20 20:15 03/04/20 03:26 Assessment Assessment 1. Cellulitis of the right forearm, hand and wrist. 2. Hypertension. 3. Status post liver transplant. 4. Immunosuppression. 5. History of carcinoma of colon. 6. Cirrhosis of liver, grade 3, stage 4. 7. Degenerative disk disease. 8. History of hepatitis C. PLAN: Continue IV Zosyn and vancomycin. I will consult Dr. Sapp for Infectious Disease evaluation and management because of his complex medical problems and immunosuppression. Continue home medications. Give IV morphine for pain control for now as he is in severe pain. For details, please refer to the orders. Cellulitis of the right forearm, hand and wrist-patient is now on IV Zosyn and Zyvox. Slowly improving. Leukopenia-chronic Due to cirrhosis of liver. Monitor. Anxiety- patient was very anxious yesterday. Urine drug screen was ordered and it is positive for marijuana and methadone and opiates. Patient states that he had methadone from 4 years ago. He used to go to pain clinic where he was previously treated with opiates. He took the pain medication because he was in a lot of pain at home. He may be going through some withdrawal. He felt that he had multiple bug bites but he has some scratch osman. He does have a puncture minda on the right hand dorsum. Yesterday he gave the staff a piece of tissue saying that it is a tick bite on his neck on the left side but it is actually a scab. Pruritus-continue Benadryl. Add Zyrtec. Plan Plan For more details regarding further plans, please refer to the orders. Justicifation of Admission Dx: Justifications for Admission: Justification of Admission Dx: Yes Cellulitis: Cellulitis ELENI NIEVES MD Mar 04, 2020 09:13
[2020-03-04] MEDS ORDERED: VANCOMYCIN 1.25 GM in IV NORMAL SALINE 250ML 250 ML IV SCH (10:00)
--- NOTE | 2020-03-04 10:43 | PDOC ---
Infectious Disease Note Subjective Subjective Says swelling and pain left hand is about the same c/o itching all over x 3-4 days, no rash. Thinks it's the Benadryl Denies F/C/N/V/D/SOA/wheezing Picked a scab off neck area per nursing, he thought it was a tick ROS ROS mentioned above Vital Sign Vital Signs Vital Signs Date Time Temp Pulse Resp B/P (MAP) Pulse Ox O2 Delivery O2 Flow Rate FiO2 03/04/20 08:53 Room Air 03/04/20 08:23 72 150/57 03/04/20 07:00 97.4 20 100 97.4 03/03/20 08:00 2.0 Physical Exam PHYSICAL EXAM GENERAL: sitting on the side of the bed,alert in NAD NECK: Supple LUNGS: Clear to auscultation bilaterally without wheeze. HEART: S1, S2. ABDOMEN: Soft, nontender EXTREMITIES: Without clubbing, cyanosis. Ttrace lower extremity edema. SKIN: Dry, warm to touch without signs of rash. Right wrist and hand dorsal aspect tender with wrist movement. There is slight edema and slight warmth. No redness NEUROLOGIC: Alert, moves all extremities. PSYCHIATRIC: Affect is appropriate. PIV Labs Lab Laboratory Tests Test 03/04/20 02:30 03/04/20 06:15 Urine Opiates Screen Pos (NEG) Urine Methadone Screen Pos (NEG) Urine Barbiturates Neg (NEG) Urine Phencyclidine Screen Neg (NEG) Urine Amphetamine/Methamphetamine Neg (NEG) Urine Benzodiazepines Screen Neg (NEG) Urine Cocaine Screen Neg (NEG) Urine Cannabinoids Screen Pos (NEG) Urine Ethyl Alcohol Neg (NEG) White Blood Count 2.9 x10^3/uL (4.0-11.0) Red Blood Count 3.31 x10^6/uL (4.30-5.70) Hemoglobin 10.1 g/dL (13.0-17.5) Hematocrit 30.3 % (39.0-53.0) Mean Corpuscular Volume 92 fL (79-100) Mean Corpuscular Hemoglobin 30 pg (25-35) Mean Corpuscular Hemoglobin Concent 33 g/dL (31-37) Red Cell Distribution Width 13.4 % (11.5-14.5) Platelet Count 98 x10^3/uL (140-400) Neutrophils (%) (Auto) 61 % (31-73) Lymphocytes (%) (Auto) 24 % (24-48) Monocytes (%) (Auto) 11 % (0-9) Eosinophils (%) (Auto) 3 % (0-3) Basophils (%) (Auto) 1 % (0-3) Neutrophils # (Auto) 1.7 x10^3/uL (1.8-7.7) Lymphocytes # (Auto) 0.7 x10^3/uL (1.0-4.8) Monocytes # (Auto) 0.3 x10^3/uL (0.0-1.1) Eosinophils # (Auto) 0.1 x10^3/uL (0.0-0.7) Basophils # (Auto) 0.0 x10^3/uL (0.0-0.2) Sodium Level 140 mmol/L (136-145) Potassium Level 4.6 mmol/L (3.5-5.1) Chloride Level 105 mmol/L (98-107) Carbon Dioxide Level 30 mmol/L (21-32) Anion Gap 5 (6-14) Blood Urea Nitrogen 21 mg/dL (8-26) Creatinine 1.5 mg/dL (0.7-1.3) Estimated GFR (Cockcroft-Gault) 45.9 Glucose Level 103 mg/dL (70-99) Calcium Level 8.3 mg/dL (8.5-10.1) Micro Microbiology 03/02/20 Blood Culture - Preliminary, Resulted NO GROWTH AFTER 1 DAY Objective Assessment Right wrist cellulitis. Immunosuppression. Leukopenia Thrombocytopenia Fever - resolved Chronic kidney disease. Plan Plan of Care Cont Zosyn and Zyvox Monitor labs F/u lab and cults D/w nursing Attending Co-Sign The patient was seen and interviewed as well as examined at the bedside. The chart was reviewed. The case was discussed. Agree with the plan of care. RICARDO EDWARDS APRN Mar 04, 2020 10:43 JAS DOAN MD Mar 04, 2020 12:20
[2020-03-04 11:08] VITALS: BP 134/36
[2020-03-04] MEDS: CETIRIZINE HCL 10 MG TABLET. PO SCH (11:37)
[2020-03-04 14:54] VITALS: BP 119/70
[2020-03-04 19:00] VITALS: BP 146/88
[2020-03-04] MEDS: GABAPENTIN 100 MG CAPSULE. PO SCH (20:56)
[2020-03-04] MEDS: ATORVASTATIN CALCIUM 10 MG TABLET. PO SCH (20:56)
[2020-03-04] MEDS: MONTELUKAST SODIUM 10 MG TABLET. PO SCH (20:58)
[2020-03-04 23:00] VITALS: BP 126/71
[2020-03-05 03:00] VITALS: BP 139/48
[2020-03-05] MEDS: MORPHINE SULFATE 4 MG/ML VIAL. IV PRN ×4 (04:00→23:03)
[2020-03-05] MEDS: LEVOTHYROXINE 75 MCG TABLET PO SCH (06:28)
[2020-03-05] MEDS: PIPERACILLIN/TAZOBACTAM 3.375 GM in IV NORMAL SALINE 50ML 50 ML IV SCH ×4 (06:28→23:22)
[2020-03-05 07:00] VITALS: BP 122/68
[2020-03-05 07:39] LABS: BASO % 0 % (0-3); EOS # 0.1 x10^3/uL (0.0-0.7); EOS % 4 % (0-3); HEMATOCRIT 28.6 % (39.0-53.0); HEMOGLOBIN 9.5 g/dL (13.0-17.5); LYMPH # 0.8 x10^3/uL (1.0-4.8); LYMPH % 24 % (24-48); MEAN CORPUSCULAR HEMOGLOBIN 31 pg (25-35); MEAN CORPUSCULAR HGB CONC 33 g/dL (31-37); MEAN CORPUSCULAR VOLUME 92 fL (79-100); MONO # 0.3 x10^3/uL (0.0-1.1); MONO % 10 % (0-9); NEUT # 2.1 x10^3/uL (1.8-7.7); NEUT % 62 % (31-73); PLATELET COUNT 99 x10^3/uL (140-400); RED BLOOD COUNT 3.11 x10^6/uL (4.30-5.70); RED CELL DISTRIBUTION WIDTH 13.5 % (11.5-14.5); WHITE BLOOD COUNT 3.4 x10^3/uL (4.0-11.0)
[2020-03-05 07:46] LABS: ALBUMIN 2.4 g/dL (3.4-5.0); ALBUMIN/GLOBULIN RATIO 0.6 (1.0-1.7); CALCIUM 8.3 mg/dL (8.5-10.1); CREATININE 1.6 mg/dL (0.7-1.3); GFR 42.6; POTASSIUM 4.4 mmol/L (3.5-5.1); TOTAL BILIRUBIN 0.4 mg/dL (0.2-1.0); TOTAL PROTEIN 6.5 g/dL (6.4-8.2)
[2020-03-05] MEDS: CETIRIZINE HCL 10 MG TABLET. PO SCH (08:31)
[2020-03-05] MEDS: TAMSULOSIN 0.4 MG CAP.ER.24H. PO SCH (08:31)
[2020-03-05] MEDS: LINEZOLID 600 MG TABLET PO SCH ×2 (08:31→21:32)
[2020-03-05] MEDS: METOPROLOL TART IMMED RELEASE 25 MG TABLET. PO SCH ×2 (08:31→21:32)
[2020-03-05] MEDS: TACROLIMUS 0.5 MG CAPSULE PO SCH ×2 (08:31→21:32)
[2020-03-05] MEDS: DICLOFENAC SODIUM 1% TOPICAL GEL 100GM TUBE. TP SCH ×2 (08:36→21:31)
--- NOTE | 2020-03-05 09:49 | PDOC ---
IM PROGRESS NOTES- Subjective Subjective Complaints of pain in the right wrist, hand and forearm. Complains of itching. Patient had a lot of anxiety and paranoia yesterday. He is somewhat better this morning. Objective Vitals/I&O Vital Signs Date Time Temp Pulse Resp B/P (MAP) Pulse Ox O2 Delivery O2 Flow Rate FiO2 03/05/20 09:02 Room Air 03/05/20 08:31 75 122/68 03/05/20 07:00 98.5 20 100 98.5 03/05/20 04:00 4.0 I & O 03/04/20 03/04/20 03/05/20 15:00 23:00 07:00 Intake Total 400 ml 300 ml Output Total 200 ml 200 ml Balance 400 ml -200 ml 100 ml Physical Exam Physical Exam General appearance - alert,well appearing, and in no distress and oriented to person, place, and time Mental Status - alert, oriented to person, place, and time, affect appropriate to mood Head - normal Chest -decreased breath sounds at bases Heart - S1 and S2 normal Abdomen - soft, nontender, Neurological - alert and oriented, anxious Musculoskeletal -swelling, redness of the right distal forearm hand and wrist improving slowly. He has a small puncture minda on the dorsum of the right hand. Extremities - no pedal edema Skin - warm and dry Labs Laboratory Tests Test 03/05/20 06:10 White Blood Count 3.4 x10^3/uL (4.0-11.0) L Red Blood Count 3.11 x10^6/uL (4.30-5.70) L Hemoglobin 9.5 g/dL (13.0-17.5) L Hematocrit 28.6 % (39.0-53.0) L Mean Corpuscular Volume 92 fL (79-100) Mean Corpuscular Hemoglobin 31 pg (25-35) Mean Corpuscular Hemoglobin Concent 33 g/dL (31-37) Red Cell Distribution Width 13.5 % (11.5-14.5) Platelet Count 99 x10^3/uL (140-400) L Neutrophils (%) (Auto) 62 % (31-73) Lymphocytes (%) (Auto) 24 % (24-48) Monocytes (%) (Auto) 10 % (0-9) H Eosinophils (%) (Auto) 4 % (0-3) H Basophils (%) (Auto) 0 % (0-3) Neutrophils # (Auto) 2.1 x10^3/uL (1.8-7.7) Lymphocytes # (Auto) 0.8 x10^3/uL (1.0-4.8) L Monocytes # (Auto) 0.3 x10^3/uL (0.0-1.1) Eosinophils # (Auto) 0.1 x10^3/uL (0.0-0.7) Basophils # (Auto) 0.0 x10^3/uL (0.0-0.2) Sodium Level 139 mmol/L (136-145) Potassium Level 4.4 mmol/L (3.5-5.1) Chloride Level 105 mmol/L (98-107) Carbon Dioxide Level 30 mmol/L (21-32) Anion Gap 4 (6-14) L Blood Urea Nitrogen 27 mg/dL (8-26) H Creatinine 1.6 mg/dL (0.7-1.3) H Estimated GFR (Cockcroft-Gault) 42.6 BUN/Creatinine Ratio 17 (6-20) Glucose Level 94 mg/dL (70-99) Calcium Level 8.3 mg/dL (8.5-10.1) L Total Bilirubin 0.4 mg/dL (0.2-1.0) Aspartate Amino Transferase (AST) 26 U/L (15-37) Alanine Aminotransferase (ALT) 37 U/L (16-63) Alkaline Phosphatase 100 U/L (46-116) Total Protein 6.5 g/dL (6.4-8.2) Albumin 2.4 g/dL (3.4-5.0) L Albumin/Globulin Ratio 0.6 (1.0-1.7) L Laboratory Tests 03/05/20 06:10 Laboratory Tests 03/05/20 06:10 Meds Current Medications Medications (Trade) Dose Ordered Sig/Sarahy Route PRN Reason Start Time Stop Time Status Last Admin Dose Admin Cetirizine HCl (ZyrTEC) 10 mg DAILY PO 03/04/20 10:30 03/05/20 08:31 Assessment Assessment 1. Cellulitis of the right forearm, hand and wrist. 2. Hypertension. 3. Status post liver transplant. 4. Immunosuppression. 5. History of carcinoma of colon. 6. Cirrhosis of liver, grade 3, stage 4. 7. Degenerative disk disease. 8. History of hepatitis C. PLAN: Continue IV Zosyn and vancomycin. I will consult Dr. Sapp for Infectious Disease evaluation and management because of his complex medical problems and immunosuppression. Continue home medications. Give IV morphine for pain control for now as he is in severe pain. For details, please refer to the orders. Cellulitis of the right forearm, hand and wrist-patient is now on IV Zosyn and Zyvox. Slowly improving. Leukopenia-chronic Due to cirrhosis of liver. Monitor. Anxiety- patient was very anxious yesterday. Urine drug screen was ordered and it is positive for marijuana and methadone and opiates. Patient states that he had methadone from 4 years ago. He used to go to pain clinic where he was previously treated with opiates. He took the pain medication because he was in a lot of pain at home. He may be going through some withdrawal. He felt that he had multiple bug bites but he has some scratch osman. He does have a puncture minda on the right hand dorsum. Yesterday he gave the staff a piece of tissue saying that it is a tick bite on his neck on the left side but it is actually a scab. Pruritus-continue Benadryl. Add Zyrtec. Plan Plan For more details regarding further plans, please refer to the orders. Justicifation of Admission Dx: Justifications for Admission: Justification of Admission Dx: Yes Cellulitis: Cellulitis ELENI NIEVES MD Mar 05, 2020 09:49
[2020-03-05 11:00] VITALS: BP 137/57
--- NOTE | 2020-03-05 11:23 | PDOC ---
Infectious Disease Note Subjective Subjective Right hand some better, still hurts but is not as swollen Denies F/C/N/V/D/SOA/wheezing ROS ROS as mentioned above Vital Sign Vital Signs Vital Signs Date Time Temp Pulse Resp B/P (MAP) Pulse Ox O2 Delivery O2 Flow Rate FiO2 03/05/20 09:02 Room Air 03/05/20 08:31 75 122/68 03/05/20 07:00 98.5 20 100 98.5 03/05/20 04:00 4.0 Physical Exam PHYSICAL EXAM GENERAL: sitting on the side of the bed,alert in NAD NECK: Supple LUNGS: Clear to auscultation bilaterally without wheeze. HEART: S1, S2. ABDOMEN: Soft, nontender EXTREMITIES: Without clubbing, cyanosis. Trace lower extremity edema. SKIN: Dry, warm to touch without signs of rash. Right wrist and hand dorsal aspect tender with wrist movement. There is slight edema, + wrickles. No redness NEUROLOGIC: Alert, moves all extremities. PSYCHIATRIC: Affect is appropriate. PIV Labs Lab Laboratory Tests Test 03/05/20 06:10 White Blood Count 3.4 x10^3/uL (4.0-11.0) Red Blood Count 3.11 x10^6/uL (4.30-5.70) Hemoglobin 9.5 g/dL (13.0-17.5) Hematocrit 28.6 % (39.0-53.0) Mean Corpuscular Volume 92 fL (79-100) Mean Corpuscular Hemoglobin 31 pg (25-35) Mean Corpuscular Hemoglobin Concent 33 g/dL (31-37) Red Cell Distribution Width 13.5 % (11.5-14.5) Platelet Count 99 x10^3/uL (140-400) Neutrophils (%) (Auto) 62 % (31-73) Lymphocytes (%) (Auto) 24 % (24-48) Monocytes (%) (Auto) 10 % (0-9) Eosinophils (%) (Auto) 4 % (0-3) Basophils (%) (Auto) 0 % (0-3) Neutrophils # (Auto) 2.1 x10^3/uL (1.8-7.7) Lymphocytes # (Auto) 0.8 x10^3/uL (1.0-4.8) Monocytes # (Auto) 0.3 x10^3/uL (0.0-1.1) Eosinophils # (Auto) 0.1 x10^3/uL (0.0-0.7) Basophils # (Auto) 0.0 x10^3/uL (0.0-0.2) Sodium Level 139 mmol/L (136-145) Potassium Level 4.4 mmol/L (3.5-5.1) Chloride Level 105 mmol/L (98-107) Carbon Dioxide Level 30 mmol/L (21-32) Anion Gap 4 (6-14) Blood Urea Nitrogen 27 mg/dL (8-26) Creatinine 1.6 mg/dL (0.7-1.3) Estimated GFR (Cockcroft-Gault) 42.6 BUN/Creatinine Ratio 17 (6-20) Glucose Level 94 mg/dL (70-99) Calcium Level 8.3 mg/dL (8.5-10.1) Total Bilirubin 0.4 mg/dL (0.2-1.0) Aspartate Amino Transf (AST/SGOT) 26 U/L (15-37) Alanine Aminotransferase (ALT/SGPT) 37 U/L (16-63) Alkaline Phosphatase 100 U/L (46-116) Total Protein 6.5 g/dL (6.4-8.2) Albumin 2.4 g/dL (3.4-5.0) Albumin/Globulin Ratio 0.6 (1.0-1.7) Micro Microbiology 03/02/20 Blood Culture - Preliminary, Resulted NO GROWTH AFTER 2 DAY Objective Assessment Right wrist cellulitis - improving Immunosuppression. Leukopenia Thrombocytopenia Fever - resolved Chronic kidney disease. Plan Plan of Care Cont Zosyn and Zyvox Monitor labs F/u lab and cults D/w nursing Attending Co-Sign The patient was seen and interviewed as well as examined at the bedside. The chart was reviewed. The case was discussed. Agree with the plan of care. RICARDO EDWARDS APRN Mar 05, 2020 11:23 JAS DOAN MD Mar 05, 2020 11:30
[2020-03-05 19:00] VITALS: BP 141/59
[2020-03-05] MEDS: MONTELUKAST SODIUM 10 MG TABLET. PO SCH (21:32)
[2020-03-05] MEDS: LACTOBACILLUS RHAMNOSUS GG 1 CAPSULE. PO SCH (21:32)
[2020-03-05] MEDS: GABAPENTIN 100 MG CAPSULE. PO SCH (21:32)
[2020-03-05] MEDS: ATORVASTATIN CALCIUM 10 MG TABLET. PO SCH (21:32)
[2020-03-05 23:00] VITALS: BP 140/54
[2020-03-06] MEDS: MORPHINE SULFATE 4 MG/ML VIAL. IV PRN ×2 (03:27→08:22)
[2020-03-06 03:30] VITALS: BP 135/53
[2020-03-06] MEDS: PIPERACILLIN/TAZOBACTAM 3.375 GM in IV NORMAL SALINE 50ML 50 ML IV SCH (05:55)
[2020-03-06] MEDS: LEVOTHYROXINE 75 MCG TABLET PO SCH (05:55)
[2020-03-06 07:52] VITALS: BP 153/60
[2020-03-06] MEDS: CETIRIZINE HCL 10 MG TABLET. PO SCH (08:19)
[2020-03-06] MEDS: METOPROLOL TART IMMED RELEASE 25 MG TABLET. PO SCH (08:19)
[2020-03-06] MEDS: LACTOBACILLUS RHAMNOSUS GG 1 CAPSULE. PO SCH (08:19)
[2020-03-06] MEDS: LINEZOLID 600 MG TABLET PO SCH (08:19)
[2020-03-06] MEDS: TACROLIMUS 0.5 MG CAPSULE PO SCH (08:19)
[2020-03-06] MEDS: TAMSULOSIN 0.4 MG CAP.ER.24H. PO SCH (08:19)
[2020-03-06] MEDS: DICLOFENAC SODIUM 1% TOPICAL GEL 100GM TUBE. TP SCH (08:20)
--- NOTE | 2020-03-06 08:46 | NUR ---
SW following. Discussed with RN, pt from home, gets around fine, has oxygen at home. Currently on IV abx, having some paranoia. SW will continue to follow for any discharge planning needs.
[2020-03-06] MEDS ORDERED: FUROSEMIDE 40 MG/4 ML VIAL. IVP ONE (09:30)
--- NOTE | 2020-03-06 09:31 | PDOC3 ---
IM DISCHARGE SUMMARY Date of Admission Date of Admission Date of Admission: Mar 03, 2020 at 13:21 Date of Discharge Date of Discharge March 06, 2020 Primary Diagnosis Primary Diagnosis 1. Cellulitis of the right forearm, hand and wrist. 2. Hypertension. 3. Status post liver transplant. 4. Immunosuppression. 5. History of carcinoma of colon. 6. Cirrhosis of liver, grade 3, stage 4. 7. Degenerative disk disease. 8. History of hepatitis C. Consults Consults Ravinder Sapp MD Brief hospital course Brief hospital course This 74-year-old male started having swelling of the right forearm, hand and wrist that started 4 days ago. There is no history of trauma. The patient had severe joint pain, body aches, fever, skin discoloration and warmth. He felt that he is getting also rash in the left upper extremity. He is not sure if he had a puncture bite from an insect. The patient was seen in the office and had quite significant swelling and cellulitis of the right upper extremity distally. He is also immunocompromised and because of the severe cellulitis and multiple medical problems, the patient was sent to the Emergency Room. In the Emergency Room, the patient was evaluated and admitted for further evaluation and management. He was given a dose of Zosyn and vancomycin. For more details regarding the past history, family history, social history, surgical history and other details, please refer to History and Physical. Continue IV Zosyn and vancomycin. I will consult Dr. Sapp for Infectious Disease evaluation and management because of his complex medical problems and immunosuppression. Continue home medications. Give IV morphine for pain control for now as he is in severe pain. For details, please refer to the orders. Cellulitis of the right forearm, hand and wrist-patient is now on IV Zosyn and Zyvox. Slowly improving. Patient will be discharged when it is okay with infectious disease specialist on oral antibiotics. Leukopenia-chronic Due to cirrhosis of liver. Monitor. Anxiety- patient was very anxious yesterday. Urine drug screen was ordered and it is positive for marijuana and methadone and opiates. Patient states that he had methadone from 4 years ago. He used to go to pain clinic where he was previously treated with opiates. He took the pain medication because he was in a lot of pain at home. He may be going through some withdrawal. He felt that he had multiple bug bites but he has some scratch osman. He does have a puncture minda on the right hand dorsum. Yesterday he gave the staff a piece of tissue saying that it is a tick bite on his neck on the left side but it is actually a scab. Pruritus-continue Benadryl. Add Zyrtec. History of narcotic abuse Fluid retention-likely due to Zosyn. I will give him 1 dose of IV Lasix 40 mg. Clinically improving. Discharge when okay with infectious disease specialist. Medications Current Medications Medications (Trade) Dose Ordered Sig/Sarahy Route PRN Reason Start Time Stop Time Status Last Admin Dose Admin Lactobacillus Rhamnosus (Culturelle) 1 cap BID PO 03/05/20 21:00 03/06/20 08:19 Medications reviewed and reconciled for discharge. Allergy Allergies Coded Allergies Type Severity Reaction Last Updated Verified Iodinated Contrast Media Allergy Intermediate 04/20/16 Yes testosterone Allergy Intermediate 04/20/16 Yes Follow up in 5 days. DISPOSITION: Home Comments Discharge Management - 35 minutes. For other details please refer to discharge instructions Justicifation of Admission Dx: Justifications for Admission: Justification of Admission Dx: Yes Cellulitis: Cellulitis ELENI NIEVES MD Mar 06, 2020 09:31
--- NOTE | 2020-03-06 09:36 | DISCH ---
DISCHARGE INSTRUCTIONS Condition on Discharge Condition on Discharge: Stable Activity After Discharge Activity Instructions for Disc: Activity as tolerated Exercise Instruction after Dis: Progress as tolerated Weight Bearing Status after Di: No restrictions Diet after Discharge Diet after Discharge: Cardiac Additional Diet Restrictions: as tolerated. Diet Texture: Regular Liquid Texture: Thin Liquid Swallowing Supervision: None needed Contacting the DRYoav after DC Call your doctor for: Concerns you may have Follow-Up Follow up with: Dr.Pratip Nieves on Friday, in 5 days Treatment/Equipment after DC Adaptive Equipment Issued: None ELENI NIEVES MD Mar 06, 2020 09:36
--- NOTE | 2020-03-06 09:36 | PDOC ---
Infectious Disease Note Subjective Subjective Right hand some better, still hurts but is not as swollen Denies F/C/N/V/D/SOA/wheezing Vital Sign Vital Signs Vital Signs Date Time Temp Pulse Resp B/P (MAP) Pulse Ox O2 Delivery O2 Flow Rate FiO2 03/06/20 08:22 Room Air 03/06/20 08:19 70 153/60 03/06/20 07:52 98.4 18 94 2.0 98.4 Physical Exam PHYSICAL EXAM GENERAL: sitting on the side of the bed,alert in NAD NECK: Supple LUNGS: Clear to auscultation bilaterally without wheeze. HEART: S1, S2. ABDOMEN: Soft, nontender EXTREMITIES: Without clubbing, cyanosis. Trace lower extremity edema. SKIN: Dry, warm to touch without signs of rash. Right wrist and hand dorsal aspect tender with wrist movement. There is slight edema, + wrickles. No redness NEUROLOGIC: Alert, moves all extremities. PSYCHIATRIC: Affect is appropriate. PIV Labs Micro Microbiology 03/02/20 Blood Culture - Preliminary, Resulted NO GROWTH AFTER 3 DAYS Objective Assessment Right wrist cellulitis - improving Immunosuppression. Leukopenia Thrombocytopenia Fever - resolved Chronic kidney disease. Plan Plan of Care Changed to p.o. Augmentin Monitor labs F/u lab and cults Anti-inflammatory D/w nursing JAS DOAN MD Mar 06, 2020 09:36
[2020-03-06] MEDS ORDERED: AMOXICILLIN/K CLAV 875/125MG TABLET. PO SCH (10:00)
[2020-03-06 11:03] VITALS: BP 143/61
[2020-03-06] MEDS ORDERED: AMOX1TAB11 PO (13:17)
--- NOTE | 2020-03-06 14:34 | NUR ---
Pt discharged home with self care. Discharge instructions and prescriptions discussed. Pt verbalized understanding. Augmentin [facility] into [facility]. IV removed. Pt assisted to wheelchair and was secured in car with daughter.
== END 2020-03-06 14:34 | disposition home or self-care (01) | DRG 603 ==
LOC: ER 17:46 → 4 NORTH 19:55 → OBSVTOIN 03-03 13:21
PROVIDERS: ADMIT Internal Medicine; ATTEND Internal Medicine
DX: L03.113 Cellulitis of right upper limb (principal); J98.11 Atelectasis; Z94.4 Liver transplant status; D69.6 Thrombocytopenia, unspecified; D72.819 Decreased white blood cell count, unspecified; E78.00 Pure hypercholesterolemia, unspecified; F22 Delusional disorders; F41.0 Panic disorder [episodic paroxysmal anxiety]; I12.9 Hypertensive chronic kidney disease with stage 1 through stage 4 chronic kidney disease, or unspecified chronic kidney disease; I48.91 Unspecified atrial fibrillation; I73.9 Peripheral vascular disease, unspecified; J44.9 Chronic obstructive pulmonary disease, unspecified; K74.60 Unspecified cirrhosis of liver; L29.9 Pruritus, unspecified; M81.0 Age-related osteoporosis without current pathological fracture; N18.9 Chronic kidney disease, unspecified; W57.XXXA Bitten or stung by nonvenomous insect and other nonvenomous arthropods, initial encounter; Z82.49 Family history of ischemic heart disease and other diseases of the circulatory system; Z85.048 Personal history of other malignant neoplasm of rectum, rectosigmoid junction, and anus; Z86.19 Personal history of other infectious and parasitic diseases; Z87.891 Personal history of nicotine dependence; Z92.21 Personal history of antineoplastic chemotherapy; Z92.3 Personal history of irradiation; Z85.05 Personal history of malignant neoplasm of liver; F11.10 Opioid abuse, uncomplicated; F32.9 Major depressive disorder, single episode, unspecified; G89.29 Other chronic pain; K21.9 Gastro-esophageal reflux disease without esophagitis; M19.90 Unspecified osteoarthritis, unspecified site; Z88.8 Allergy status to other drugs, medicaments and biological substances
CPT/HCPCS: 36415; 71045; 73090; 73110; 73130; 80048; 80053; 80307; 81001; 83605; 84550; 85025; 87040; 96365; 96367; 96375; 96376; 99285; G0378; G0379; J1940; J2270; J2405; J2543; J3010; J3370; J3490; J7030; J7040; J7050; J7507; Q0163